=== PATIENT | female | born 1955 | race Caucasian/White ===

== ENCOUNTER 2017-09-01 17:05 | Emergency (ER) | payer OTHER ==
[~2017-09-01] VITALS: Ht 152.4 cm; Wt 86.6 kg
[2017-09-01 17:33] VITALS: BP 138/84
[2017-09-01 17:56] LABS: Basophils # (auto) 0.1 uL; Eosinophils # (auto) 0.1 uL; Hematocrit 42.6 % (36.0-46.0); Hemoglobin 14.1 g/dL (12.2-16.2); Lymphocytes # (auto) 1.3 uL; Lymphocytes % (auto) 25.9 % (10.0-50.0); Mean Corpuscular Hemoglobin 29.2 pg (28.0-32.0); Mean Corpuscular Hgb Conc. 33.2 g/dL (32.0-36.0); Mean Corpuscular Volume 87.9 fL (80.0-100.0); Monocytes # (auto) 0.5 uL; Monocytes % (auto) 9.4 % (0.0-12.0); Neutrophils # (auto) 3.1 uL; Neutrophils % (auto) 61.7 % (37.0-80.0); Nucleated Red Blood Cells % 0.1 %; Platelet Count (auto) 149 10^3/uL (140-450); Red Blood Cells 4.84 10^6/uL (4.0-5.20); Red Cell Distribution Width 14.6 % (11.8-14.3); White Blood Cell 5.1 10^3/uL (4.4-10.8)
[2017-09-01 18:12] LABS: Albumin 3.8 g/dL (3.4-5.0); BUN/Creatinine Ratio 28.7; Bilirubin, Total 0.5 mg/dL (0.2-1.0); Calcium 8.8 mg/dL (8.5-10.1); Potassium 3.6 mmol/L (3.5-5.1)
== END 2017-09-02 00:20 | disposition left against medical advice (07) ==
LOC: ER 17:05
DX: R10.9 Unspecified abdominal pain (principal); Z53.21 Procedure and treatment not carried out due to patient leaving prior to being seen by health care provider
CPT/HCPCS: 36415; 80053; 82150; 83690; 85025

== ENCOUNTER → 2020-07-09 | Outpatient (CLI) | payer OTHER ==
[2020-07-09 09:57] LABS: Basophils # (auto) 0 10 ^3/uL (0-0.2); Basophils % (auto) 0.4 % (0.0-2.0); Eosinophils # (auto) 0.1 10 ^3/uL (0-0.8); Eosinophils % (auto) 2.6 % (0.0-7.0); Hematocrit 40.7 % (36.0-46.0); Hemoglobin 13.6 g/dL (12.2-16.2); Lymphocytes % (auto) 25.9 % (10.0-50.0); Mean Corpuscular Hemoglobin 29.5 pg (28.0-32.0); Mean Corpuscular Hgb Conc. 33.5 g/dL (32.0-36.0); Mean Corpuscular Volume 88.1 fL (80.0-100.0); Monocytes # (auto) 0.3 10 ^3/uL (0-1.3); Monocytes % (auto) 8.5 % (0.0-12.0); Neutrophils # (auto) 2.5 10 ^3/uL (1.6-8.6); Neutrophils % (auto) 62.6 % (37.0-80.0); Nucleated Red Blood Cells % 0.1 %; Platelet Count (auto) 129 10^3/uL (140-450); Red Blood Cells 4.61 10^6/uL (4.0-5.20); Red Cell Distribution Width 14.1 % (11.8-14.3)
[2020-07-09 10:00] LABS: Urine Bacteria NONE SEEN /hpf (None Seen); Urine Blood TRACE /uL (Negative); Urine Specific Gravity 1.015 (1.001-1.035); Urine WBC 34 /hpf (0 - 5)
[2020-07-09 10:24] LABS: Albumin 3.6 g/dL (3.4-5.0); Calcium 9.2 mg/dL (8.5-10.1); Potassium 3.5 mmol/L (3.5-5.1)
[2020-07-09 10:29] LABS: BUN/Creatinine Ratio 28.8; Bilirubin, Total 0.5 mg/dL (0.2-1.0); Total Protein 7.9 g/dL (6.4-8.2)
== END | disposition home or self-care (01) ==
LOC: LAB 08:57
PROVIDERS: ATTEND Student in an Organized Health Care Education/Training Program
DX: I10 Essential (primary) hypertension (principal); E78.5 Hyperlipidemia, unspecified; R73.9 Hyperglycemia, unspecified; M25.50 Pain in unspecified joint
CPT/HCPCS: 36415; 80053; 80061; 81001; 83036; 84443; 85025

== ENCOUNTER 2020-08-26 00:24 | Emergency (ER) | payer OTHER ==
[~2020-08-26] VITALS: Ht 152.4 cm; Wt 77.1 kg
[2020-08-26 01:08] LABS: Basophils # (auto) 0 10 ^3/uL (0-0.2); Basophils % (auto) 0.6 % (0.0-2.0); Eosinophils # (auto) 0.1 10 ^3/uL (0-0.8); Hematocrit 38.2 % (36.0-46.0); Hemoglobin 12.5 g/dL (12.2-16.2); Lymphocytes # (auto) 1.1 10 ^3/uL (0.4-5.4); Lymphocytes % (auto) 23.6 % (10.0-50.0); Mean Corpuscular Hemoglobin 28.7 pg (28.0-32.0); Mean Corpuscular Hgb Conc. 32.7 g/dL (32.0-36.0); Monocytes # (auto) 0.5 10 ^3/uL (0-1.3); Monocytes % (auto) 10.3 % (0.0-12.0); Neutrophils # (auto) 2.9 10 ^3/uL (1.6-8.6); Neutrophils % (auto) 63.5 % (37.0-80.0); Nucleated Red Blood Cells % 0.1 %; Platelet Count (auto) 114 10^3/uL (140-450); Red Blood Cells 4.34 10^6/uL (4.0-5.20); Red Cell Distribution Width 14.2 % (11.8-14.3); White Blood Cell 4.5 10^3/uL (4.4-10.8)
[2020-08-26 01:27] LABS: Albumin 3.6 g/dL (3.4-5.0); BUN/Creatinine Ratio 33.3; Calcium 8.4 mg/dL (8.5-10.1); Potassium 3.6 mmol/L (3.5-5.1)
[2020-08-26 01:32] LABS: Bilirubin, Total 0.3 mg/dL (0.2-1.0); Total Protein 7.4 g/dL (6.4-8.2)
[2020-08-26 02:57] LABS: Urine Bacteria MANY /hpf (None Seen); Urine Blood TRACE /uL (Negative); Urine Mucus FEW (None Seen); Urine Specific Gravity 1.018 (1.001-1.035); Urine WBC 37 /hpf (0 - 5)
[2020-08-26 04:52] VITALS: BP 155/95
== END 2020-08-26 06:11 | disposition home or self-care (01) ==
LOC: ER 00:25
DX: R07.89 Other chest pain (principal); I10 Essential (primary) hypertension; E78.5 Hyperlipidemia, unspecified
CPT/HCPCS: 36415; 71045; 80053; 81001; 84484; 85025; 93005

== ENCOUNTER → 2020-10-13 | Outpatient (CLI) | payer OTHER ==
[~2020-10-13] MED LIST: ASPI-231 PO; CLOTCRE37 EX; LEFL20TA PO; LEVO125T7 PO; LISI20TA28 PO; OMEP20TA PO; SIMV-8 PO
[2020-10-13 11:30] LABS: Basophils # (auto) 0 10 ^3/uL (0-0.2); Basophils % (auto) 0.6 % (0.0-2.0); Eosinophils # (auto) 0.1 10 ^3/uL (0-0.8); Eosinophils % (auto) 2.6 % (0.0-7.0); Hematocrit 40.6 % (36.0-46.0); Hemoglobin 13.5 g/dL (12.2-16.2); Mean Corpuscular Hemoglobin 29.2 pg (28.0-32.0); Mean Corpuscular Hgb Conc. 33.3 g/dL (32.0-36.0); Mean Corpuscular Volume 87.4 fL (80.0-100.0); Monocytes # (auto) 0.3 10 ^3/uL (0-1.3); Monocytes % (auto) 8.7 % (0.0-12.0); Neutrophils # (auto) 2.3 10 ^3/uL (1.6-8.6); Neutrophils % (auto) 61.1 % (37.0-80.0); Nucleated Red Blood Cells % 0.1 %; Red Blood Cells 4.65 10^6/uL (4.0-5.20); Red Cell Distribution Width 14.4 % (11.8-14.3); White Blood Cell 3.8 10^3/uL (4.4-10.8)
[2020-10-13 12:40] LABS: Potassium 3.7 mmol/L (3.5-5.1)
[2020-10-13 12:51] LABS: Albumin 3.8 g/dL (3.4-5.0); BUN/Creatinine Ratio 26.5; Bilirubin, Total 0.4 mg/dL (0.2-1.0); CRP High Sensitivity 0.07 mg/dL (< 0.3); Calcium 9.2 mg/dL (8.5-10.1); Total Protein 8.3 g/dL (6.4-8.2)
== END | disposition home or self-care (01) ==
LOC: LAB 10:15
PROVIDERS: ATTEND Internal Medicine Rheumatology
DX: Z11.1 Encounter for screening for respiratory tuberculosis (principal); M05.79 Rheumatoid arthritis with rheumatoid factor of multiple sites without organ or systems involvement; R94.5 Abnormal results of liver function studies; M32.10 Systemic lupus erythematosus, organ or system involvement unspecified
CPT/HCPCS: 36415; 80053; 85025; 85652; 86038; 86141; 86200; 86431

== ENCOUNTER 2020-10-17 12:09 | Day surgery (SDC) | payer OTHER ==
[2020-10-14 13:53] LABS: Basophils # (auto) 0 10 ^3/uL (0-0.2); Basophils % (auto) 0.7 % (0.0-2.0); Eosinophils # (auto) 0.1 10 ^3/uL (0-0.8); Eosinophils % (auto) 1.7 % (0.0-7.0); Hemoglobin 13.2 g/dL (12.2-16.2); Lymphocytes # (auto) 1.1 10 ^3/uL (0.4-5.4); Lymphocytes % (auto) 24.6 % (10.0-50.0); Mean Corpuscular Hemoglobin 29.3 pg (28.0-32.0); Mean Corpuscular Hgb Conc. 33.9 g/dL (32.0-36.0); Mean Corpuscular Volume 86.5 fL (80.0-100.0); Monocytes # (auto) 0.5 10 ^3/uL (0-1.3); Monocytes % (auto) 11.6 % (0.0-12.0); Neutrophils # (auto) 2.8 10 ^3/uL (1.6-8.6); Neutrophils % (auto) 61.4 % (37.0-80.0); Red Blood Cells 4.51 10^6/uL (4.0-5.20); Red Cell Distribution Width 13.8 % (11.8-14.3); White Blood Cell 4.5 10^3/uL (4.4-10.8)
[2020-10-14 14:18] LABS: Urine Bacteria FEW /hpf (None Seen); Urine Blood Negative /uL (Negative); Urine Mucus FEW (None Seen); Urine Specific Gravity 1.018 (1.001-1.035); Urine WBC 7 /hpf (0 - 5)
[2020-10-14 14:53] LABS: Potassium 4.1 mmol/L (3.5-5.1)
[2020-10-14 14:58] LABS: Albumin 3.9 g/dL (3.4-5.0); BUN/Creatinine Ratio 30.2; Calcium 9.1 mg/dL (8.5-10.1)
[2020-10-14 15:01] LABS: Bilirubin, Total 0.4 mg/dL (0.2-1.0); Total Protein 7.9 g/dL (6.4-8.2)
[~2020-10-17] VITALS: Ht 152.4 cm; Wt 77.1 kg
[2020-10-17] MEDS ORDERED: diphenhdrAMINE HCL 50 MG/1 ML VL ONE (12:43)
[2020-10-17] MEDS ORDERED: SODIUM CHLORIDE LOCK 10 ML ONE (12:47)
[2020-10-17] MEDS: fentaNYL CITRATE 100 MCG/2 ML VL ONE ×2 (13:09→13:14)
[2020-10-17] MEDS: MIDAZOLAM HCL 5 MG/ML-1ML VIAL ONE ×2 (13:09→13:14)
[2020-10-17 13:55] VITALS: BP 113/67
== END 2020-10-17 14:05 | disposition home or self-care (01) ==
LOC: GI 12:09
PROVIDERS: ATTEND Internal Medicine Gastroenterology
DX: Z12.11 Encounter for screening for malignant neoplasm of colon (principal); K57.30 Diverticulosis of large intestine without perforation or abscess without bleeding; K63.89 Other specified diseases of intestine; K64.8 Other hemorrhoids; K21.9 Gastro-esophageal reflux disease without esophagitis; M19.90 Unspecified osteoarthritis, unspecified site; I10 Essential (primary) hypertension; Z20.822 Contact with and (suspected) exposure to COVID-19; Z79.82 Long term (current) use of aspirin; Z79.899 Other long term (current) drug therapy; Z88.0 Allergy status to penicillin; Z80.0 Family history of malignant neoplasm of digestive organs
CPT/HCPCS: 36415; 45380; 80053; 81001; 85025; 88305; J1200; J2250; J3010; J7030; U0003; 99152

== ENCOUNTER → 2020-10-29 | Outpatient (CLI) | payer OTHER | END | disposition home or self-care (01) | LOC: LAB 10:04 | PROVIDERS: ATTEND Student in an Organized Health Care Education/Training Program | DX: E03.9 Hypothyroidism, unspecified (principal) | CPT/HCPCS: 36415; 84439; 84443 ==

== ENCOUNTER → 2021-04-08 | Outpatient (CLI) | payer OTHER ==
[~2021-04-08] MED LIST changes: -ASPI-231 PO; +ASPI1TAB20 PO
[2021-04-08 12:58] LABS: Basophils # (auto) 0 10 ^3/uL (0-0.2); Basophils % (auto) 0.4 % (0.0-2.0); Eosinophils # (auto) 0.1 10 ^3/uL (0-0.8); Eosinophils % (auto) 2.2 % (0.0-7.0); Hematocrit 39.8 % (36.0-46.0); Hemoglobin 13.2 g/dL (12.2-16.2); Mean Corpuscular Hemoglobin 28.8 pg (28.0-32.0); Mean Corpuscular Hgb Conc. 33.1 g/dL (32.0-36.0); Monocytes # (auto) 0.5 10 ^3/uL (0-1.3); Monocytes % (auto) 12.9 % (0.0-12.0); Neutrophils % (auto) 55.5 % (37.0-80.0); Red Blood Cells 4.57 10^6/uL (4.0-5.20); Red Cell Distribution Width 14.3 % (11.8-14.3); White Blood Cell 3.6 10^3/uL (4.4-10.8)
[2021-04-08 13:07] LABS: Urine Bacteria FEW /hpf (None Seen); Urine Blood TRACE /uL (Negative); Urine Mucus FEW (None Seen); Urine Specific Gravity 1.021 (1.001-1.035); Urine WBC 13 /hpf (0 - 5)
[2021-04-08 14:44] LABS: Potassium 3.6 mmol/L (3.5-5.1)
[2021-04-08 16:13] LABS: Albumin 3.5 g/dL (3.4-5.0); BUN/Creatinine Ratio 30.4; Bilirubin, Total 0.5 mg/dL (0.2-1.0); Calcium 9.1 mg/dL (8.5-10.1); Total Protein 7.6 g/dL (6.4-8.2)
== END | disposition home or self-care (01) ==
LOC: LAB 09:35
PROVIDERS: ATTEND Student in an Organized Health Care Education/Training Program
DX: E78.5 Hyperlipidemia, unspecified (principal); I10 Essential (primary) hypertension; E03.9 Hypothyroidism, unspecified
CPT/HCPCS: 36415; 80053; 80061; 81001; 84443; 85025

== ENCOUNTER → 2021-07-20 | Outpatient (CLI) | payer OTHER ==
[2021-07-20 09:35] LABS: Albumin 3.2 g/dL (3.4-5.0); Calcium 8.7 mg/dL (8.5-10.1); Potassium 3.2 mmol/L (3.5-5.1); Uric Acid 6.8 mg/dL (2.6-6.0)
[2021-07-20 09:38] LABS: BUN/Creatinine Ratio 18.6; Bilirubin, Total 0.4 mg/dL (0.2-1.0); Total Protein 7.1 g/dL (6.4-8.2)
== END | disposition home or self-care (01) ==
LOC: LAB 08:35
PROVIDERS: ATTEND Podiatrist
DX: M10.9 Gout, unspecified (principal)
CPT/HCPCS: 36415; 80053; 84550

== ENCOUNTER → 2021-08-10 | Outpatient (CLI) | payer OTHER ==
[2021-08-10 09:24] LABS: Urine Bacteria NONE SEEN /hpf (None Seen); Urine Blood Negative /uL (Negative); Urine Specific Gravity 1.012 (1.001-1.035); Urine WBC 28 /hpf (0 - 5)
[2021-08-10 09:28] LABS: Basophils # (auto) 0 10 ^3/uL (0-0.2); Eosinophils # (auto) 0.1 10 ^3/uL (0-0.8); Eosinophils % (auto) 2.5 % (0.0-7.0); Hematocrit 40.5 % (36.0-46.0); Hemoglobin 13.4 g/dL (12.2-16.2); Lymphocytes # (auto) 1.1 10 ^3/uL (0.4-5.4); Lymphocytes % (auto) 21.5 % (10.0-50.0); Mean Corpuscular Volume 87.8 fL (80.0-100.0); Monocytes # (auto) 0.5 10 ^3/uL (0-1.3); Monocytes % (auto) 10.6 % (0.0-12.0); Neutrophils # (auto) 3.1 10 ^3/uL (1.6-8.6); Neutrophils % (auto) 64.4 % (37.0-80.0); Red Blood Cells 4.61 10^6/uL (4.0-5.20); Red Cell Distribution Width 14.1 % (11.8-14.3); White Blood Cell 4.9 10^3/uL (4.4-10.8)
[2021-08-10 09:40] LABS: Calcium 8.9 mg/dL (8.5-10.1); Potassium 3.6 mmol/L (3.5-5.1)
[2021-08-10 09:43] LABS: BUN/Creatinine Ratio 19.5
== END | disposition home or self-care (01) ==
LOC: LAB 08:54
PROVIDERS: ATTEND Student in an Organized Health Care Education/Training Program
DX: N39.0 Urinary tract infection, site not specified (principal); E03.8 Other specified hypothyroidism
CPT/HCPCS: 36415; 80048; 81001; 84439; 84443; 85025; 87086

== ENCOUNTER → 2021-08-18 | Outpatient (CLI) | payer OTHER | END | disposition home or self-care (01) | LOC: LAB 12:05 | PROVIDERS: ATTEND Podiatrist | DX: M10.9 Gout, unspecified (principal) | CPT/HCPCS: 36415; 84550 ==

== ENCOUNTER → 2021-09-02 | Outpatient (CLI) | payer OTHER ==
[2021-09-02 08:05] LABS: Basophils # (auto) 0 10 ^3/uL (0-0.2); Basophils % (auto) 0.9 % (0.0-2.0); Eosinophils # (auto) 0.1 10 ^3/uL (0-0.8); Eosinophils % (auto) 2.2 % (0.0-7.0); Hematocrit 39.1 % (36.0-46.0); Hemoglobin 13.1 g/dL (12.2-16.2); Lymphocytes % (auto) 21.3 % (10.0-50.0); Mean Corpuscular Hemoglobin 29.2 pg (28.0-32.0); Mean Corpuscular Hgb Conc. 33.4 g/dL (32.0-36.0); Mean Corpuscular Volume 87.4 fL (80.0-100.0); Monocytes # (auto) 0.5 10 ^3/uL (0-1.3); Monocytes % (auto) 10.8 % (0.0-12.0); Neutrophils # (auto) 2.9 10 ^3/uL (1.6-8.6); Neutrophils % (auto) 64.8 % (37.0-80.0); Nucleated Red Blood Cells % 0.1 %; Red Blood Cells 4.47 10^6/uL (4.0-5.20); Red Cell Distribution Width 14.1 % (11.8-14.3); White Blood Cell 4.5 10^3/uL (4.4-10.8)
[2021-09-02 08:29] LABS: Albumin 3.2 g/dL (3.4-5.0); Calcium 8.6 mg/dL (8.5-10.1); Potassium 3.3 mmol/L (3.5-5.1)
[2021-09-02 08:37] LABS: BUN/Creatinine Ratio 25.3; Bilirubin, Total 0.6 mg/dL (0.2-1.0); CRP High Sensitivity 1.23 mg/dL (< 0.3); Total Protein 7.6 g/dL (6.4-8.2)
== END | disposition home or self-care (01) ==
LOC: LAB 07:52
PROVIDERS: ATTEND Internal Medicine Rheumatology
DX: M06.09 Rheumatoid arthritis without rheumatoid factor, multiple sites (principal)
CPT/HCPCS: 36415; 80053; 85025; 85652; 86141

== ENCOUNTER → 2021-11-12 | Outpatient (CLI) | payer OTHER ==
[2021-11-12 09:31] LABS: Basophils # (auto) 0 10 ^3/uL (0-0.2); Basophils % (auto) 0.5 % (0.0-2.0); Eosinophils # (auto) 0.1 10 ^3/uL (0-0.8); Eosinophils % (auto) 3.2 % (0.0-7.0); Hematocrit 39.2 % (36.0-46.0); Hemoglobin 12.6 g/dL (12.2-16.2); Lymphocytes # (auto) 0.9 10 ^3/uL (0.4-5.4); Lymphocytes % (auto) 32.7 % (10.0-50.0); Mean Corpuscular Hemoglobin 28.7 pg (28.0-32.0); Mean Corpuscular Volume 89.4 fL (80.0-100.0); Monocytes # (auto) 0.3 10 ^3/uL (0-1.3); Monocytes % (auto) 12.8 % (0.0-12.0); Neutrophils # (auto) 1.4 10 ^3/uL (1.6-8.6); Neutrophils % (auto) 50.8 % (37.0-80.0); Nucleated Red Blood Cells % 0.1 %; Red Blood Cells 4.38 10^6/uL (4.0-5.20); Red Cell Distribution Width 16.1 % (11.8-14.3); White Blood Cell 2.7 10^3/uL (4.4-10.8)
[2021-11-12 09:43] LABS: Urine Bacteria NONE SEEN /hpf (None Seen); Urine Blood Negative /uL (Negative); Urine Specific Gravity 1.013 (1.001-1.035); Urine WBC 4 /hpf (0 - 5)
[2021-11-12 15:04] LABS: Potassium 3.6 mmol/L (3.5-5.1)
[2021-11-12 15:13] LABS: Albumin 3.3 g/dL (3.4-5.0); BUN/Creatinine Ratio 26.1; Bilirubin, Total 0.8 mg/dL (0.2-1.0)
== END | disposition home or self-care (01) ==
LOC: LAB 09:06
PROVIDERS: ATTEND Student in an Organized Health Care Education/Training Program
DX: M25.50 Pain in unspecified joint (principal)
CPT/HCPCS: 36415; 80053; 80061; 81001; 85025

== ENCOUNTER → 2022-01-11 | Outpatient (CLI) | payer OTHER ==
[2022-01-11 10:40] LABS: Basophils # (auto) 0 10 ^3/uL (0-0.2); Basophils % (auto) 0.6 % (0.0-2.0); Eosinophils # (auto) 0.1 10 ^3/uL (0-0.8); Eosinophils % (auto) 1.9 % (0.0-7.0); Hematocrit 39.3 % (36.0-46.0); Lymphocytes # (auto) 1.1 10 ^3/uL (0.4-5.4); Lymphocytes % (auto) 23.6 % (10.0-50.0); Mean Corpuscular Hemoglobin 29.4 pg (28.0-32.0); Mean Corpuscular Hgb Conc. 33.1 g/dL (32.0-36.0); Mean Corpuscular Volume 88.8 fL (80.0-100.0); Monocytes # (auto) 0.5 10 ^3/uL (0-1.3); Monocytes % (auto) 10.1 % (0.0-12.0); Neutrophils % (auto) 63.8 % (37.0-80.0); Nucleated Red Blood Cells % 0.1 %; Red Blood Cells 4.43 10^6/uL (4.0-5.20); Red Cell Distribution Width 14.8 % (11.8-14.3); White Blood Cell 4.6 10^3/uL (4.4-10.8)
[2022-01-11 11:00] LABS: Potassium 4.1 mmol/L (3.5-5.1)
[2022-01-11 11:05] LABS: Albumin 3.3 g/dL (3.4-5.0); Bilirubin, Total 0.7 mg/dL (0.2-1.0); CRP High Sensitivity 0.69 mg/dL (< 0.3); Total Protein 7.1 g/dL (6.4-8.2)
[2022-01-11 12:47] LABS: Hepatitis B Surface Antibody Negative (Negative)
[2022-01-11 13:17] LABS: Hepatitis A Total Antibody Positive (Negative)
[2022-01-11 13:51] LABS: Hepatitis C Antibody Negative (Negative)
== END | disposition home or self-care (01) ==
LOC: LAB 09:54
PROVIDERS: ATTEND Internal Medicine Rheumatology
DX: Z11.1 Encounter for screening for respiratory tuberculosis (principal); M06.9 Rheumatoid arthritis, unspecified; R94.5 Abnormal results of liver function studies
CPT/HCPCS: 36415; 80053; 85025; 85652; 86141; 86235; 86704; 86706; 86708; 86803; 87340; 87517

== ENCOUNTER → 2022-02-15 | Outpatient (CLI) | payer OTHER ==
[2022-02-15 09:21] LABS: Basophils # (auto) 0 10 ^3/uL (0-0.2); Basophils % (auto) 0.4 % (0.0-2.0); Eosinophils # (auto) 0.1 10 ^3/uL (0-0.8); Eosinophils % (auto) 1.9 % (0.0-7.0); Hematocrit 39.8 % (36.0-46.0); Hemoglobin 12.8 g/dL (12.2-16.2); Lymphocytes # (auto) 0.9 10 ^3/uL (0.4-5.4); Lymphocytes % (auto) 23.2 % (10.0-50.0); Mean Corpuscular Hemoglobin 28.8 pg (28.0-32.0); Mean Corpuscular Hgb Conc. 32.1 g/dL (32.0-36.0); Mean Corpuscular Volume 89.7 fL (80.0-100.0); Monocytes # (auto) 0.5 10 ^3/uL (0-1.3); Monocytes % (auto) 12.5 % (0.0-12.0); Neutrophils # (auto) 2.4 10 ^3/uL (1.6-8.6); Nucleated Red Blood Cells % 0.1 %; Red Blood Cells 4.44 10^6/uL (4.0-5.20); Red Cell Distribution Width 14.6 % (11.8-14.3); White Blood Cell 3.9 10^3/uL (4.4-10.8)
[2022-02-15 13:03] LABS: Potassium 3.6 mmol/L (3.5-5.1)
[2022-02-15 13:13] LABS: Albumin 3.3 g/dL (3.4-5.0); BUN/Creatinine Ratio 23.7; Bilirubin, Total 0.7 mg/dL (0.2-1.0); Calcium 9.2 mg/dL (8.5-10.1); Total Protein 7.3 g/dL (6.4-8.2)
== END | disposition home or self-care (01) ==
LOC: LAB 09:03
PROVIDERS: ATTEND Student in an Organized Health Care Education/Training Program
DX: I10 Essential (primary) hypertension (principal); E03.8 Other specified hypothyroidism; E78.5 Hyperlipidemia, unspecified; R73.9 Hyperglycemia, unspecified
CPT/HCPCS: 36415; 80053; 80061; 83036; 84439; 84443; 85025

== ENCOUNTER → 2022-03-04 | Outpatient (CLI) | payer OTHER ==
[2022-03-04 10:04] LABS: Basophils # (auto) 0 10 ^3/uL (0-0.2); Basophils % (auto) 0.4 % (0.0-2.0); Eosinophils # (auto) 0.1 10 ^3/uL (0-0.8); Eosinophils % (auto) 1.4 % (0.0-7.0); Hematocrit 40.5 % (36.0-46.0); Hemoglobin 13.2 g/dL (12.2-16.2); Lymphocytes # (auto) 0.9 10 ^3/uL (0.4-5.4); Lymphocytes % (auto) 18.6 % (10.0-50.0); Mean Corpuscular Hemoglobin 28.8 pg (28.0-32.0); Mean Corpuscular Hgb Conc. 32.6 g/dL (32.0-36.0); Mean Corpuscular Volume 88.4 fL (80.0-100.0); Monocytes # (auto) 0.5 10 ^3/uL (0-1.3); Monocytes % (auto) 9.3 % (0.0-12.0); Neutrophils # (auto) 3.4 10 ^3/uL (1.6-8.6); Neutrophils % (auto) 70.3 % (37.0-80.0); Nucleated Red Blood Cells % 0.2 %; Red Blood Cells 4.58 10^6/uL (4.0-5.20); Red Cell Distribution Width 14.3 % (11.8-14.3); White Blood Cell 4.9 10^3/uL (4.4-10.8)
[2022-03-04 10:14] LABS: Albumin 3.5 g/dL (3.4-5.0); Calcium 9.1 mg/dL (8.5-10.1); Potassium 3.5 mmol/L (3.5-5.1)
[2022-03-04 10:19] LABS: BUN/Creatinine Ratio 30.7; Bilirubin, Direct 0.2 mg/dL (0-0.2); Bilirubin, Total 0.8 mg/dL (0.2-1.0); Total Protein 7.8 g/dL (6.4-8.2)
== END | disposition home or self-care (01) ==
LOC: LAB 09:21
PROVIDERS: ATTEND Student in an Organized Health Care Education/Training Program
DX: D69.6 Thrombocytopenia, unspecified (principal); R74.8 Abnormal levels of other serum enzymes; J30.9 Allergic rhinitis, unspecified
CPT/HCPCS: 36415; 80053; 80076; 82785; 85025

== ENCOUNTER → 2022-05-18 | Outpatient (CLI) | payer OTHER ==
[2022-05-18 10:27] LABS: Basophils # (auto) 0 10 ^3/uL (0-0.2); Basophils % (auto) 0.9 % (0.0-2.0); Eosinophils # (auto) 0.1 10 ^3/uL (0-0.8); Eosinophils % (auto) 1.4 % (0.0-7.0); Hematocrit 42.3 % (36.0-46.0); Hemoglobin 14.1 g/dL (12.2-16.2); Lymphocytes # (auto) 0.9 10 ^3/uL (0.4-5.4); Lymphocytes % (auto) 23.5 % (10.0-50.0); Mean Corpuscular Hemoglobin 29.9 pg (28.0-32.0); Mean Corpuscular Hgb Conc. 33.4 g/dL (32.0-36.0); Mean Corpuscular Volume 89.5 fL (80.0-100.0); Monocytes # (auto) 0.4 10 ^3/uL (0-1.3); Monocytes % (auto) 9.4 % (0.0-12.0); Neutrophils # (auto) 2.4 10 ^3/uL (1.6-8.6); Neutrophils % (auto) 64.8 % (37.0-80.0); Nucleated Red Blood Cells % 0.1 %; Red Blood Cells 4.73 10^6/uL (4.0-5.20); Red Cell Distribution Width 15.1 % (11.8-14.3); White Blood Cell 3.7 10^3/uL (4.4-10.8)
[2022-05-18 11:26] LABS: Potassium 3.4 mmol/L (3.5-5.1)
[2022-05-18 11:35] LABS: Albumin 3.5 g/dL (3.4-5.0); BUN/Creatinine Ratio 29.8; Bilirubin, Total 1.3 mg/dL (0.2-1.0); CRP High Sensitivity 0.84 mg/dL (< 0.3); Calcium 9.1 mg/dL (8.5-10.1); Total Protein 8.8 g/dL (6.4-8.2)
== END | disposition home or self-care (01) ==
LOC: LAB 10:02
PROVIDERS: ATTEND Internal Medicine Rheumatology
DX: R94.5 Abnormal results of liver function studies (principal); R70.0 Elevated erythrocyte sedimentation rate; M06.09 Rheumatoid arthritis without rheumatoid factor, multiple sites; Z79.899 Other long term (current) drug therapy
CPT/HCPCS: 36415; 80053; 84155; 84165; 85025; 85652; 86141

== ENCOUNTER 2022-06-19 09:53 | Emergency (ER) | payer OTHER ==
[~2022-06-19] VITALS: Ht 157.5 cm; Wt 64.8 kg
[2022-06-19] MEDS ORDERED: KETOROLAC TROMETH 60MG/2ML VIAL IM ONE (11:00)
[2022-06-19 11:01] VITALS: BP 125/75
[2022-06-19] MEDS ORDERED: MELO7.5T9 PO (11:31)
[2022-06-19] MEDS ORDERED: BENZ100C19 PO (11:31)
== END 2022-06-19 11:33 | disposition home or self-care (01) ==
LOC: ER 09:53
DX: M17.11 Unilateral primary osteoarthritis, right knee (principal); M77.9 Enthesopathy, unspecified; R05.9 Cough, unspecified; M54.89 Other dorsalgia; Z88.0 Allergy status to penicillin; Z79.899 Other long term (current) drug therapy; Z79.82 Long term (current) use of aspirin
CPT/HCPCS: 71046; 73100; 73560; 96372; 99284; J1885

== ENCOUNTER → 2022-06-22 | Outpatient (CLI) | payer OTHER ==
[~2022-06-22] MED LIST changes: +BENZ100C19 PO; +MELO7.5T9 PO
[2022-06-22 10:27] LABS: Basophils # (auto) 0 10 ^3/uL (0-0.2); Basophils % (auto) 0.8 % (0.0-2.0); Eosinophils # (auto) 0 10 ^3/uL (0-0.8); Eosinophils % (auto) 0.7 % (0.0-7.0); Hematocrit 38.6 % (36.0-46.0); Hemoglobin 13.1 g/dL (12.2-16.2); Lymphocytes # (auto) 0.8 10 ^3/uL (0.4-5.4); Lymphocytes % (auto) 19.8 % (10.0-50.0); Mean Corpuscular Hemoglobin 31.2 pg (28.0-32.0); Mean Corpuscular Volume 91.8 fL (80.0-100.0); Monocytes # (auto) 0.5 10 ^3/uL (0-1.3); Neutrophils # (auto) 2.7 10 ^3/uL (1.6-8.6); Neutrophils % (auto) 66.7 % (37.0-80.0); Nucleated Red Blood Cells % 0.2 %; Red Blood Cells 4.21 10^6/uL (4.0-5.20); Red Cell Distribution Width 15.8 % (11.8-14.3); White Blood Cell 4.1 10^3/uL (4.4-10.8)
[2022-06-22 10:52] LABS: Albumin 2.8 g/dL (3.4-5.0); Potassium 3.6 mmol/L (3.5-5.1)
[2022-06-22 11:05] LABS: BUN/Creatinine Ratio 13.6 (10.0-20.0); Bilirubin, Total 2.6 mg/dL (0.2-1.0); CRP High Sensitivity 3.04 mg/dL (< 0.3); Calcium 8.4 mg/dL (8.5-10.1); Total Protein 8.8 g/dL (6.4-8.2)
== END | disposition home or self-care (01) ==
LOC: LAB 09:46
PROVIDERS: ATTEND Internal Medicine Rheumatology
DX: R94.5 Abnormal results of liver function studies (principal); M06.9 Rheumatoid arthritis, unspecified
CPT/HCPCS: 36415; 80053; 85025; 85652; 86141

== ENCOUNTER 2022-06-25 17:10 | Inpatient (IN) | payer OTHER ==
[~2022-06-25] VITALS: Ht 152.4 cm; Wt 76.8 kg
[2022-06-25] MEDS ORDERED: KETOROLAC TROMETH 30 MG/ML 1ML VIAL IV ONE (18:00)
[2022-06-25] MEDS ORDERED: SODIUM CHLORIDE 0.9% 1,000 ML IV ONE (18:00)
[2022-06-25 18:29] LABS: Basophils # (auto) 0 10 ^3/uL (0-0.2); Basophils % (auto) 0.6 % (0.0-2.0); Eosinophils # (auto) 0.1 10 ^3/uL (0-0.8); Eosinophils % (auto) 1.1 % (0.0-7.0); Hemoglobin 12.2 g/dL (12.2-16.2); Mean Corpuscular Hemoglobin 30.9 pg (28.0-32.0); Mean Corpuscular Hgb Conc. 32.1 g/dL (32.0-36.0); Mean Corpuscular Volume 96.3 fL (80.0-100.0); Monocytes # (auto) 0.5 10 ^3/uL (0-1.3); Monocytes % (auto) 11.8 % (0.0-12.0); Neutrophils % (auto) 65.5 % (37.0-80.0); Nucleated Red Blood Cells % 0.1 %; Red Blood Cells 3.95 10^6/uL (4.0-5.20); Red Cell Distribution Width 16.8 % (11.8-14.3); White Blood Cell 4.6 10^3/uL (4.4-10.8)
[2022-06-25 18:44] LABS: Potassium 3.4 mmol/L (3.5-5.1)
[2022-06-25 18:50] LABS: Albumin 2.5 g/dL (3.4-5.0); BUN/Creatinine Ratio 14.7 (10.0-20.0); Bilirubin, Total 1.4 mg/dL (0.2-1.0); Magnesium 1.9 mg/dL (1.6-2.6); Total Protein 7.6 g/dL (6.4-8.2)
[2022-06-25] MEDS: PIPERACILLIN-TAZOB 3.375GM 100 ML IV ONE ×2 (20:26→20:36)
[2022-06-25] MEDS ORDERED: levoFLOXacin 500MG 100 ML IV ONE (20:45)
[2022-06-25] MEDS ORDERED: metroNIDAZOLE 500MG/100ML 100 ML IV ONE (20:45)
[2022-06-25] MEDS ORDERED: HYDROcodone-ACET 5/325MG TAB PO PRN (21:45)
[2022-06-25] MEDS ORDERED: DOCUSATE SOD 100 MG CAP PO PRN (21:45)
[2022-06-25] MEDS ORDERED: IBUPROFEN 400 MG TAB PO PRN (21:45)
[2022-06-25] MEDS ORDERED: ALBUMIN 25% 100 ML IV ONE (21:45)
[2022-06-25] MEDS ORDERED: ONDANSETRON HCL 4 MG/2 ML VIAL IV PRN (21:45)
[2022-06-25] MEDS ORDERED: POTASSIUM CHL 20 Meq TABLET PO ONE (22:00)
[2022-06-25] MEDS ORDERED: NITROGLYCERIN 0.4 MG SL TAB SL PRN (22:30)
[2022-06-25] MEDS ORDERED: MORPHINE SULFATE INJ 2 MG/ml SYRG IV PRN (22:30)
[2022-06-25] MEDS: FAMOTIDINE (10MG/ML) 2ML VL IV SCH (23:08)
[2022-06-26] MEDS: D5W/SOD CHLO 0.9% 1,000 ML IV SCH ×2 (01:24→11:05)
[2022-06-26 04:13] LABS: Urine Bacteria FEW /hpf (None Seen); Urine Blood Negative /uL (Negative); Urine Specific Gravity 1.008 (1.001-1.035); Urine WBC 6 /hpf (0 - 5)
[2022-06-26 07:03] LABS: Basophils # (auto) 0 10 ^3/uL (0-0.2); Basophils % (auto) 0.7 % (0.0-2.0); Eosinophils # (auto) 0 10 ^3/uL (0-0.8); Eosinophils % (auto) 0.9 % (0.0-7.0); Hematocrit 34.7 % (36.0-46.0); Hemoglobin 12.1 g/dL (12.2-16.2); Lymphocytes # (auto) 0.5 10 ^3/uL (0.4-5.4); Lymphocytes % (auto) 13.2 % (10.0-50.0); Mean Corpuscular Hemoglobin 31.4 pg (28.0-32.0); Mean Corpuscular Hgb Conc. 34.9 g/dL (32.0-36.0); Monocytes # (auto) 0.3 10 ^3/uL (0-1.3); Monocytes % (auto) 9.3 % (0.0-12.0); Neutrophils # (auto) 2.8 10 ^3/uL (1.6-8.6); Neutrophils % (auto) 75.9 % (37.0-80.0); Nucleated Red Blood Cells % 0.1 %; Red Blood Cells 3.86 10^6/uL (4.0-5.20); Red Cell Distribution Width 15.5 % (11.8-14.3); White Blood Cell 3.7 10^3/uL (4.4-10.8)
[2022-06-26 07:20] LABS: Potassium 3.8 mmol/L (3.5-5.1)
[2022-06-26 07:26] LABS: Albumin 2.6 g/dL (3.4-5.0); BUN/Creatinine Ratio 14.9 (10.0-20.0); Calcium 7.9 mg/dL (8.5-10.1); Total Protein 7.6 g/dL (6.4-8.2)
[2022-06-26 08:38] VITALS: BP 105/64
[2022-06-26 08:52] VITALS: BP 140/79
[2022-06-26] MEDS ORDERED: LISI-283 PO (09:09)
[2022-06-26] MEDS ORDERED: KETO2CRE4 EX (09:09)
[2022-06-26] MEDS ORDERED: LEVO112T4 PO (09:09)
[2022-06-26] MEDS ORDERED: OMEP-263 PO (09:09)
[2022-06-26] MEDS ORDERED: BENZ100C97 PO (09:09)
[2022-06-26] MEDS ORDERED: CETI1TAB36 PO (09:12)
[2022-06-26] MEDS: metroNIDAZOLE 500MG/100ML 100 ML IV SCH ×3 (09:19→23:21)
[2022-06-26] MEDS: FAMOTIDINE (10MG/ML) 2ML VL IV SCH ×2 (09:19→23:21)
[2022-06-26] MEDS ORDERED: levoFLOXacin 250MG 50 ML IV SCH (10:00)
[2022-06-26] MEDS: levoFLOXacin 500MG 100 ML IV SCH (11:17)
[2022-06-26] MEDS: LEVOTHYROXINE SODIUM 50 MCG TAB PO SCH (13:15)
[2022-06-26 13:25] VITALS: BP 100/61
[2022-06-26 17:19] VITALS: BP 115/62
[2022-06-26 22:00] VITALS: BP 113/62
[2022-06-27 05:00] VITALS: BP 106/65
[2022-06-27] MEDS: D5W/SOD CHLO 0.9% 1,000 ML IV SCH ×2 (05:50→13:51)
[2022-06-27 05:51] LABS: Basophils # (auto) 0 10 ^3/uL (0-0.2); Basophils % (auto) 0.3 % (0.0-2.0); Eosinophils # (auto) 0 10 ^3/uL (0-0.8); Eosinophils % (auto) 1.2 % (0.0-7.0); Hematocrit 32.6 % (36.0-46.0); Hemoglobin 10.9 g/dL (12.2-16.2); Lymphocytes # (auto) 0.5 10 ^3/uL (0.4-5.4); Lymphocytes % (auto) 14.5 % (10.0-50.0); Mean Corpuscular Hemoglobin 31.4 pg (28.0-32.0); Mean Corpuscular Hgb Conc. 33.4 g/dL (32.0-36.0); Monocytes # (auto) 0.5 10 ^3/uL (0-1.3); Monocytes % (auto) 13.4 % (0.0-12.0); Neutrophils # (auto) 2.5 10 ^3/uL (1.6-8.6); Neutrophils % (auto) 70.6 % (37.0-80.0); Nucleated Red Blood Cells % 0.2 %; Red Blood Cells 3.47 10^6/uL (4.0-5.20); Red Cell Distribution Width 15.8 % (11.8-14.3); White Blood Cell 3.6 10^3/uL (4.4-10.8)
[2022-06-27] MEDS: metroNIDAZOLE 500MG/100ML 100 ML IV SCH ×4 (06:00→21:48)
[2022-06-27] MEDS: LEVOTHYROXINE SODIUM 50 MCG TAB PO SCH (06:00)
[2022-06-27] MEDS: MORPHINE SULFATE INJ 2 MG/ml SYRG IV PRN (06:13)
[2022-06-27 06:16] LABS: Albumin 2.2 g/dL (3.4-5.0); Calcium 7.8 mg/dL (8.5-10.1); Potassium 3.7 mmol/L (3.5-5.1)
[2022-06-27 06:20] LABS: BUN/Creatinine Ratio 13.6 (10.0-20.0); Bilirubin, Total 1.9 mg/dL (0.2-1.0); Total Protein 6.5 g/dL (6.4-8.2)
[2022-06-27 08:25] VITALS: BP 102/61
[2022-06-27 09:00] VITALS: BP 102/61
[2022-06-27] MEDS: FAMOTIDINE (10MG/ML) 2ML VL IV SCH ×2 (10:07→21:49)
[2022-06-27] MEDS: levoFLOXacin 500MG 100 ML IV SCH (10:07)
[2022-06-27 13:00] VITALS: BP 99/60
[2022-06-27] MEDS: traMADol HCL 50 MG TAB PO PRN (14:02)
[2022-06-27 17:00] VITALS: BP 114/67
[2022-06-27 22:00] VITALS: BP 117/65
[2022-06-28] MEDS: D5W/SOD CHLO 0.9% 1,000 ML IV SCH (00:17)
[2022-06-28 05:00] VITALS: BP 111/63
[2022-06-28] MEDS: metroNIDAZOLE 500MG/100ML 100 ML IV SCH ×3 (05:11→21:23)
[2022-06-28] MEDS: LEVOTHYROXINE SODIUM 50 MCG TAB PO SCH (06:00)
[2022-06-28 07:30] LABS: INR 1.42 (0.9-1.15); Partial Thromboplastin Time 33.4 sec (24.6-33.4)
[2022-06-28 07:39] LABS: Albumin 2.1 g/dL (3.4-5.0); BUN/Creatinine Ratio 13.4 (10.0-20.0); Calcium 7.7 mg/dL (8.5-10.1); Potassium 3.6 mmol/L (3.5-5.1)
[2022-06-28 07:42] LABS: Bilirubin, Total 1.4 mg/dL (0.2-1.0); Total Protein 6.2 g/dL (6.4-8.2)
[2022-06-28 09:00] VITALS: BP 111/64
[2022-06-28] MEDS: cefTRIAXone 1GM/50ML D5W 50 ML IV SCH (09:31)
[2022-06-28] MEDS: FAMOTIDINE (10MG/ML) 2ML VL IV SCH ×2 (09:31→21:23)
[2022-06-28 13:00] VITALS: BP 106/62
[2022-06-28 17:00] VITALS: BP 121/67
[2022-06-28] MEDS: MORPHINE SULFATE INJ 2 MG/ml SYRG IV PRN (17:50)
[2022-06-28 22:00] VITALS: BP 114/69
[2022-06-28] MEDS: traMADol HCL 50 MG TAB PO PRN (23:28)
[2022-06-29 05:00] VITALS: BP 112/68
[2022-06-29] MEDS: metroNIDAZOLE 500MG/100ML 100 ML IV SCH ×2 (06:02→13:17)
[2022-06-29] MEDS: LEVOTHYROXINE SODIUM 50 MCG TAB PO SCH (06:02)
[2022-06-29] MEDS: traMADol HCL 50 MG TAB PO PRN (06:28)
[2022-06-29 06:37] LABS: Basophils # (auto) 0 10 ^3/uL (0-0.2); Basophils % (auto) 0.4 % (0.0-2.0); Eosinophils # (auto) 0.1 10 ^3/uL (0-0.8); Eosinophils % (auto) 1.8 % (0.0-7.0); Hematocrit 33.5 % (36.0-46.0); Hemoglobin 11.3 g/dL (12.2-16.2); Lymphocytes # (auto) 0.7 10 ^3/uL (0.4-5.4); Lymphocytes % (auto) 19.2 % (10.0-50.0); Mean Corpuscular Hemoglobin 31.3 pg (28.0-32.0); Mean Corpuscular Hgb Conc. 33.7 g/dL (32.0-36.0); Monocytes # (auto) 0.4 10 ^3/uL (0-1.3); Neutrophils # (auto) 2.4 10 ^3/uL (1.6-8.6); Neutrophils % (auto) 66.6 % (37.0-80.0); Nucleated Red Blood Cells % 0.2 %; Red Cell Distribution Width 16.3 % (11.8-14.3); White Blood Cell 3.6 10^3/uL (4.4-10.8)
[2022-06-29 06:47] LABS: INR 1.55 (0.9-1.15)
[2022-06-29 07:13] LABS: Potassium 3.6 mmol/L (3.5-5.1)
[2022-06-29 07:22] LABS: Albumin 2.1 g/dL (3.4-5.0); BUN/Creatinine Ratio 10.9 (10.0-20.0); Bilirubin, Total 1.4 mg/dL (0.2-1.0); Calcium 7.5 mg/dL (8.5-10.1); Total Protein 6.2 g/dL (6.4-8.2)
[2022-06-29 08:30] VITALS: BP 105/65
[2022-06-29] MEDS: cefTRIAXone 1GM/50ML D5W 50 ML IV SCH (09:25)
[2022-06-29] MEDS: FAMOTIDINE (10MG/ML) 2ML VL IV SCH (09:25)
[2022-06-29 12:50] VITALS: BP 109/75
[2022-06-29] MEDS ORDERED: LEVO750T8 PO (14:37)
[2022-06-29] MEDS ORDERED: METR500T PO (14:37)
== END 2022-06-29 15:47 | disposition home or self-care (01) | DRG 392 ==
LOC: ER 17:10 → OVERFLOW 22:23 → CENTRAL 06-26 08:10
PROVIDERS: ADMIT Nurse Practitioner Family; ATTEND Internal Medicine
DX: K57.20 Diverticulitis of large intestine with perforation and abscess without bleeding (principal); E78.5 Hyperlipidemia, unspecified; E87.6 Hypokalemia; E88.09 Other disorders of plasma-protein metabolism, not elsewhere classified; K52.9 Noninfective gastroenteritis and colitis, unspecified; K64.4 Residual hemorrhoidal skin tags; K64.8 Other hemorrhoids; K74.60 Unspecified cirrhosis of liver; M06.9 Rheumatoid arthritis, unspecified; D69.6 Thrombocytopenia, unspecified; I10 Essential (primary) hypertension; K59.00 Constipation, unspecified; Z20.822 Contact with and (suspected) exposure to COVID-19; R32 Unspecified urinary incontinence; Z66 Do not resuscitate; Z88.0 Allergy status to penicillin; Z80.0 Family history of malignant neoplasm of digestive organs; Z83.49 Family history of other endocrine, nutritional and metabolic diseases
CPT/HCPCS: 36415; 74176; 80053; 81001; 82105; 82140; 82728; 83516; 83735; 84443; 84484; 85025; 85610; 85730; 86225; 86235; 87086; 87426; 93005; 96365; 96366; 96368; 97163; G0378; J0696; J1885; J1956; J2405; J2543; J3490; J7042; P9047

== ENCOUNTER 2022-07-04 18:12 | Inpatient (IN) | payer OTHER ==
[~2022-07-04] VITALS: Ht 152.4 cm; Wt 79.0 kg
[~2022-07-04 18:12] MED LIST changes: -BENZ100C19 PO; +BENZ100C97 PO; +CETI1TAB36 PO; -CLOTCRE37 EX; +KETO2CRE4 EX; -LEFL20TA PO; +LEVO112T4 PO; -LEVO125T7 PO; +LEVO750T8 PO; +LISI-283 PO; -LISI20TA28 PO; -MELO7.5T9 PO; +METR500T PO; +OMEP-263 PO; -OMEP20TA PO; -SIMV-8 PO
[2022-07-04 18:55] LABS: Basophils # (auto) 0 10 ^3/uL (0-0.2); Basophils % (auto) 0.6 % (0.0-2.0); Eosinophils # (auto) 0.1 10 ^3/uL (0-0.8); Eosinophils % (auto) 1.2 % (0.0-7.0); Hematocrit 38.9 % (36.0-46.0); Lymphocytes # (auto) 0.7 10 ^3/uL (0.4-5.4); Lymphocytes % (auto) 14.5 % (10.0-50.0); Mean Corpuscular Hgb Conc. 33.5 g/dL (32.0-36.0); Mean Corpuscular Volume 92.6 fL (80.0-100.0); Monocytes # (auto) 0.4 10 ^3/uL (0-1.3); Neutrophils # (auto) 3.6 10 ^3/uL (1.6-8.6); Neutrophils % (auto) 75.7 % (37.0-80.0); Nucleated Red Blood Cells % 0.1 %; White Blood Cell 4.8 10^3/uL (4.4-10.8)
[2022-07-04 19:17] LABS: Albumin 2.5 g/dL (3.4-5.0); Calcium 7.6 mg/dL (8.5-10.1)
[2022-07-04 19:19] LABS: BUN/Creatinine Ratio 13.3 (10.0-20.0); Bilirubin, Total 1.6 mg/dL (0.2-1.0); Total Protein 7.2 g/dL (6.4-8.2)
[2022-07-04 19:22] LABS: Potassium 2.7 mmol/L (3.5-5.1)
[2022-07-04] MEDS ORDERED: POTASSIUM CHL 20MEQ/100ML 100 ML IV ONE (19:45)
[2022-07-04] MEDS ORDERED: POTASSIUM CHL 20 Meq TABLET PO ONE (19:45)
[2022-07-04] MEDS ORDERED: KETOROLAC TROMETH 60MG/2ML VIAL IM ONE (20:30)
[2022-07-04 21:48] LABS: Urine Bacteria FEW /hpf (None Seen); Urine Blood Negative /uL (Negative); Urine Hyaline Cast FEW /lpf (0 - 2); Urine Specific Gravity 1.016 (1.001-1.035); Urine WBC 1 /hpf (0 - 5)
[2022-07-04] MEDS ORDERED: LACTATED RINGER'S 1,000 ML IV ONE (22:00)
[2022-07-04] MEDS: POTASSIUM CHL 20MEQ/100ML 100 ML IV SCH (22:00)
[2022-07-04] MEDS ORDERED: POTASSIUM EFFERVESENT TAB 25 MEQ PO ONE (22:00)
[2022-07-05] MEDS: POTASSIUM CHL 20MEQ/100ML 100 ML IV SCH
[2022-07-05] MEDS ORDERED: IODIXANOL 320MG/ML 100ML BTL IV ONE (01:20)
[2022-07-05] MEDS ORDERED: levoFLOXacin 750MG 150 ML IV ONE (02:00)
[2022-07-05] MEDS ORDERED: LACTATED RINGER'S 1,000 ML IV ONE (02:00)
[2022-07-05] MEDS ORDERED: metroNIDAZOLE 500MG/100ML 100 ML IV ONE (02:00)
[2022-07-05] MEDS ORDERED: MAGNESIUM SULFATE 1GM/100ML 100 ML IV ONE (02:15)
[2022-07-05] MEDS ORDERED: MORPHINE SULFATE INJ 2 MG/ml SYRG IV PRN (03:30)
[2022-07-05] MEDS ORDERED: TEMAZEPAM 15 MG CAP PO PRN (03:30)
[2022-07-05] MEDS ORDERED: HYDROcodone-ACET 5/325MG TAB PO PRN (03:30)
[2022-07-05] MEDS ORDERED: ONDANSETRON HCL 4 MG/2 ML VIAL IV PRN (03:30)
[2022-07-05] MEDS ORDERED: ACETAMINOPHEN 325 MG TAB PO PRN (03:30)
[2022-07-05] MEDS ORDERED: levoFLOXacin 500MG 100 ML IV SCH (03:45)
[2022-07-05 12:21] LABS: Basophils # (auto) 0.1 10 ^3/uL (0-0.2); Basophils % (auto) 1.6 % (0.0-2.0); Eosinophils # (auto) 0.1 10 ^3/uL (0-0.8); Eosinophils % (auto) 1.8 % (0.0-7.0); Hematocrit 38.3 % (36.0-46.0); Hemoglobin 12.7 g/dL (12.2-16.2); Lymphocytes # (auto) 0.5 10 ^3/uL (0.4-5.4); Lymphocytes % (auto) 12.7 % (10.0-50.0); Mean Corpuscular Hemoglobin 30.8 pg (28.0-32.0); Mean Corpuscular Hgb Conc. 33.1 g/dL (32.0-36.0); Mean Corpuscular Volume 93.1 fL (80.0-100.0); Monocytes # (auto) 0.4 10 ^3/uL (0-1.3); Neutrophils # (auto) 3.1 10 ^3/uL (1.6-8.6); Neutrophils % (auto) 74.9 % (37.0-80.0); Nucleated Red Blood Cells % 0.2 %; Red Blood Cells 4.11 10^6/uL (4.0-5.20); Red Cell Distribution Width 17.2 % (11.8-14.3); White Blood Cell 4.1 10^3/uL (4.4-10.8)
[2022-07-05 12:51] LABS: Albumin 2.5 g/dL (3.4-5.0); BUN/Creatinine Ratio 13.2 (10.0-20.0); Calcium 8.1 mg/dL (8.5-10.1); Magnesium 1.9 mg/dL (1.6-2.6); Potassium 3.4 mmol/L (3.5-5.1)
[2022-07-05 13:04] LABS: Bilirubin, Total 1.6 mg/dL (0.2-1.0); Total Protein 7.5 g/dL (6.4-8.2)
[2022-07-05] MEDS ORDERED: MEROPENEM 1GM IVPB 100 ML IV SCH ×3 (14:00)
[2022-07-05] MEDS ORDERED: metroNIDAZOLE 500MG/100ML 100 ML IV SCH (14:00)
[2022-07-05] MEDS ORDERED: PIPERACILLIN-TAZOB 3.375GM 100 ML IV SCH (14:00)
[2022-07-05] MEDS: MEROPENEM 1GM IVPB 100 ML IV SCH ×2 (14:10→21:55)
[2022-07-05] MEDS ORDERED: POTASSIUM CHL 20 Meq TABLET PO ONE (16:00)
[2022-07-05] MEDS: LACTATED RINGER'S 1,000 ML IV SCH (18:09)
[2022-07-05 23:33] VITALS: BP 118/73
[2022-07-06 04:46] VITALS: BP 123/72
[2022-07-06] MEDS: MEROPENEM 1GM IVPB 100 ML IV SCH ×2 (05:32→14:17)
[2022-07-06 06:41] LABS: Basophils # (auto) 0 10 ^3/uL (0-0.2); Basophils % (auto) 0.6 % (0.0-2.0); Eosinophils # (auto) 0.1 10 ^3/uL (0-0.8); Eosinophils % (auto) 1.8 % (0.0-7.0); Hematocrit 34.2 % (36.0-46.0); Hemoglobin 11.7 g/dL (12.2-16.2); Lymphocytes # (auto) 0.5 10 ^3/uL (0.4-5.4); Lymphocytes % (auto) 13.7 % (10.0-50.0); Mean Corpuscular Hemoglobin 31.6 pg (28.0-32.0); Mean Corpuscular Hgb Conc. 34.3 g/dL (32.0-36.0); Mean Corpuscular Volume 92.3 fL (80.0-100.0); Monocytes # (auto) 0.3 10 ^3/uL (0-1.3); Monocytes % (auto) 8.6 % (0.0-12.0); Neutrophils # (auto) 2.7 10 ^3/uL (1.6-8.6); Neutrophils % (auto) 75.3 % (37.0-80.0); Nucleated Red Blood Cells % 0.2 %; Red Cell Distribution Width 16.9 % (11.8-14.3); White Blood Cell 3.5 10^3/uL (4.4-10.8)
[2022-07-06 07:17] LABS: Potassium 3.2 mmol/L (3.5-5.1)
[2022-07-06 07:33] LABS: Albumin 2.3 g/dL (3.4-5.0); BUN/Creatinine Ratio 11.9 (10.0-20.0); Bilirubin, Total 1.7 mg/dL (0.2-1.0); Calcium 7.9 mg/dL (8.5-10.1); Magnesium 1.7 mg/dL (1.6-2.6); Total Protein 6.5 g/dL (6.4-8.2)
[2022-07-06 08:00] VITALS: BP 126/69
[2022-07-06 09:00] VITALS: BP 135/77
[2022-07-06] MEDS ORDERED: POTASSIUM CHL 20 Meq TABLET PO ONE (11:15)
[2022-07-06 13:00] VITALS: BP 126/69
[2022-07-06 13:17] LABS: % Iron Saturation 54.7 % (15-50)
[2022-07-06] MEDS: LACTATED RINGER'S 1,000 ML IV SCH (14:17)
[2022-07-06 15:00] LABS: Albumin 2.3 g/dL (3.4-5.0)
[2022-07-06 15:02] LABS: Bilirubin, Total 1.8 mg/dL (0.2-1.0); Total Protein 6.6 g/dL (6.4-8.2)
[2022-07-06 16:59] VITALS: BP 123/67
== END 2022-07-06 17:47 | disposition home or self-care (01) | DRG 392 ==
LOC: ER 18:12 → OVERFLOW 07-05 03:16 → EAST 07-05 22:00
PROVIDERS: ADMIT Nurse Practitioner; ATTEND Internal Medicine
DX: K57.32 Diverticulitis of large intestine without perforation or abscess without bleeding (principal); N30.00 Acute cystitis without hematuria; E46 Unspecified protein-calorie malnutrition; R18.8 Other ascites; K74.60 Unspecified cirrhosis of liver; Z66 Do not resuscitate; E86.0 Dehydration; M06.8A Other specified rheumatoid arthritis, other specified site; E87.6 Hypokalemia; E66.9 Obesity, unspecified; I10 Essential (primary) hypertension; E03.9 Hypothyroidism, unspecified; K21.9 Gastro-esophageal reflux disease without esophagitis; E78.5 Hyperlipidemia, unspecified; Z80.0 Family history of malignant neoplasm of digestive organs; Z88.0 Allergy status to penicillin; Z68.34 Body mass index [BMI] 34.0-34.9, adult
CPT/HCPCS: 36415; 74177; 80053; 80076; 81001; 82390; 83540; 83550; 83735; 84132; 85025; 93005; 93971; 96361; 96365; 96372; G0378; J1885; J1956; J2185; J3480; J3490; Q9967

== ENCOUNTER 2022-11-08 18:03 | Inpatient (IN) | payer OTHER ==
[~2022-11-08] VITALS: Ht 152.4 cm; Wt 72.4 kg
[~2022-11-08 18:03] MED LIST changes: -OMEP-263 PO; +OMEP-448 PO
[2022-11-08 19:58] LABS: Basophils # (auto) 0 10 ^3/uL (0-0.2); Basophils % (auto) 0.4 % (0.0-2.0); Eosinophils # (auto) 0.1 10 ^3/uL (0-0.8); Eosinophils % (auto) 1.2 % (0.0-7.0); Hematocrit 39.9 % (36.0-46.0); Hemoglobin 13.3 g/dL (12.2-16.2); Lymphocytes # (auto) 1.2 10 ^3/uL (0.4-5.4); Lymphocytes % (auto) 13.8 % (10.0-50.0); Mean Corpuscular Hemoglobin 35.4 pg (28.0-32.0); Mean Corpuscular Hgb Conc. 33.4 g/dL (32.0-36.0); Monocytes # (auto) 0.4 10 ^3/uL (0-1.3); Monocytes % (auto) 5.1 % (0.0-12.0); Neutrophils % (auto) 79.5 % (37.0-80.0); Nucleated Red Blood Cells % 0.5 %; Red Blood Cells 3.77 10^6/uL (4.0-5.20); Red Cell Distribution Width 17.6 % (11.8-14.3); White Blood Cell 8.8 10^3/uL (4.4-10.8)
[2022-11-08 20:10] LABS: Calcium 8.5 mg/dL (8.7-10.4); Potassium 5.2 mmol/L (3.5-5.1)
[2022-11-08 20:16] LABS: Albumin 2.3 g/dL (3.4-5.0); BUN/Creatinine Ratio 23.7 (10.0-20.0); Bilirubin, Total 2.6 mg/dL (0.2-1.0); Total Protein 6.9 g/dL (6.4-8.2)
[2022-11-09] MEDS ORDERED: SODIUM BICARBONATE 8.4 % INJ 50ML VIAL IV ONE ×2 (02:45→07:30)
[2022-11-09] MEDS ORDERED: ALBUMIN 25% 100 ML IV ONE ×2 (02:45→07:30)
[2022-11-09] MEDS ORDERED: InsuLIN REG 1unit/0.01ml Soln (100units/ml) IV ONE ×2 (02:45→07:30)
[2022-11-09] MEDS ORDERED: FUROSEMIDE 40 MG/4 ML VIAL IV ONE (02:45)
[2022-11-09] MEDS ORDERED: CALCIUM GLUC 1,000mg/50ml-NS 50 ML IV ONE ×2 (02:45→07:30)
[2022-11-09 06:07] LABS: INR 1.38 (0.9-1.15); Partial Thromboplastin Time 32.5 SEC (24.5-34.5); Prothrombin Time 14.2 sec (9.3-11.8)
[2022-11-09 06:34] LABS: Albumin 2.2 g/dL (3.4-5.0); BUN/Creatinine Ratio 22.5 (10.0-20.0); Calcium 8.5 mg/dL (8.7-10.4)
[2022-11-09 06:37] LABS: Bilirubin, Total 2.4 mg/dL (0.2-1.0)
[2022-11-09] MEDS ORDERED: SODIUM ZIRCONIUM CYCL 10 GM PAK PO ONE (07:30)
[2022-11-09] MEDS ORDERED: DEXTROSE (50%) 50ML SYRG IV ONE (07:30)
[2022-11-09] MEDS: PANTOPRAZOLE 40 MG TAB PO SCH (08:24)
[2022-11-09] MEDS: LEVOTHYROXINE SODIUM 112 MCG TAB PO SCH (08:24)
[2022-11-09 09:00] VITALS: PULSE 74; RESP 19; O2SAT 94
[2022-11-09] MEDS ORDERED: BUMETANIDE 2.5mg/10ml (0.25 mg/ml) INJ IV ONE (09:30)
[2022-11-09] MEDS ORDERED: FUROSEMIDE 40 MG TAB PO SCH (10:00)
[2022-11-09] MEDS ORDERED: SODIUM CHLORIDE 0.9% 1,000 ML IV ONE (10:15)
[2022-11-09] MEDS: DEXTROSE (50%) 50ML SYRG IV ONE ×2 (10:16→12:29)
[2022-11-09] MEDS ORDERED: MIDODRINE HCL 10 MG TAB PO ONE (10:45)
[2022-11-09 11:28] LABS: INR 1.53 (0.9-1.15); Prothrombin Time 15.6 sec (9.3-11.8)
[2022-11-09 11:51] LABS: Calcium 8.9 mg/dL (8.7-10.4); Potassium 5.4 mmol/L (3.5-5.1)
[2022-11-09] MEDS: NOREPINEPHRINE 8 MG/250ML KIT 250 ML IV SCH ×2 (11:51→17:10)
[2022-11-09 11:53] LABS: BUN/Creatinine Ratio 21.3 (10.0-20.0)
[2022-11-09 12:38] LABS: COVID19 ANTIGEN SOFIA FIA NEGATIVE (NEGATIVE)
[2022-11-09] MEDS: SODIUM ZIRCONIUM CYCL 10 GM PAK PO SCH ×2 (13:28→21:00)
[2022-11-09] MEDS ORDERED: ALBUTEROL SULF 2.5 MG/0.5ML(0.5%) NEB SOLN NEB ONE (15:45)
[2022-11-09] MEDS: ALBUMIN 25% 100 ML IV SCH ×2 (17:13→18:05)
[2022-11-09 18:02] LABS: Magnesium 1.7 mg/dL (1.6-2.6)
[2022-11-09 18:04] LABS: Phosphorus 4.8 mg/dL (2.4-5.1)
[2022-11-09] MEDS: MIDODRINE HCL 10 MG TAB PO SCH (18:04)
[2022-11-09 18:30] LABS: Urine Bacteria FEW /hpf (None Seen); Urine Blood 2+ /uL (Negative); Urine Clarity Clear (Clear); Urine Color Colorless (Yellow); Urine Hyaline Cast MOD /lpf (0 - 2); Urine Protein, UAD Negative (Negative); Urine Specific Gravity 1.007 (1.001-1.035); Urine Urobilinogen Normal (Negative); Urine WBC 4 /hpf (0 - 5)
[2022-11-09 18:50] LABS: Sodium Urine 110 mmol/L (40-220)
[2022-11-09 18:55] LABS: Protein, Urine < 6.0 mg/dL (0.0-11.9)
[2022-11-09 18:57] LABS: Creatinine, Urine 22.26 mg/dL (30.0-125.0)
[2022-11-09 19:15] VITALS: PULSE 105; RESP 24; O2SAT 98
[2022-11-09] MEDS: BUMETANIDE INJECTION 25 MG in GIVE UN-DILUTED 0 ML IV SCH (20:59)
[2022-11-09] MEDS: NYSTATIN TOPICAL POWDER 15GM TOP SCH (21:00)
[2022-11-09] MEDS: OCTREOTIDE ACETATE 100 MCG/ML VL SUBCUT SCH (21:00)
[2022-11-09 23:57] LABS: Body Fluid pH 7
[2022-11-09 23:58] LABS: Body Fluid Polymorphonuclear 26 % (0-25); Body Fluid Red Blood Cells 165 CUMM (0-2000); Body Fluid White Blood Cells 92.5 CUMM (0-200)
[2022-11-10] VITALS (74 sets, daily range): BP systolic 77–151; BP diastolic 34–81; PULSE 58–83; RESP 13–27; TEMP 98.2–98.6; O2SAT 92–99
[2022-11-10 06:15] LABS: Basophils # (auto) 0.1 10 ^3/uL (0-0.2); Basophils % (auto) 0.5 % (0.0-2.0); Mean Corpuscular Hemoglobin 35.2 pg (28.0-32.0)
[2022-11-10 06:18] LABS: Eosinophils # (auto) 0.2 10 ^3/uL (0-0.8); Eosinophils % (auto) 1.1 % (0.0-7.0); Hematocrit 36.4 % (36.0-46.0); Lymphocytes # (auto) 1.8 10 ^3/uL (0.4-5.4); Lymphocytes % (auto) 13.1 % (10.0-50.0); Mean Corpuscular Volume 106.8 fL (80.0-100.0); Monocytes % (auto) 7.4 % (0.0-12.0); Neutrophils # (auto) 10.8 10 ^3/uL (1.6-8.6); Neutrophils % (auto) 77.9 % (37.0-80.0); Nucleated Red Blood Cells % 0.2 %; Red Blood Cells 3.41 10^6/uL (4.0-5.20); Red Cell Distribution Width 17.7 % (11.8-14.3); White Blood Cell 13.9 10^3/uL (4.4-10.8)
[2022-11-10] MEDS: SODIUM ZIRCONIUM CYCL 10 GM PAK PO SCH ×3 (06:26→21:27)
[2022-11-10] MEDS: MIDODRINE HCL 10 MG TAB PO SCH ×3 (06:26→18:09)
[2022-11-10] MEDS: OCTREOTIDE ACETATE 100 MCG/ML VL SUBCUT SCH ×3 (06:27→21:27)
[2022-11-10] MEDS: LEVOTHYROXINE SODIUM 112 MCG TAB PO SCH (06:28)
[2022-11-10 06:41] LABS: Alanine Aminotransferase 29 U/L (7-40); Alkaline Phosphatase 70 U/L (46-116); Anion Gap 16.8 (5-15); Aspartate Aminotransferase 42 U/L (13-40); BUN/Creatinine Ratio 17.9 (10.0-20.0); Blood Urea Nitrogen 50 mg/dL (9-23); Calcium 8.9 mg/dL (8.7-10.4); Carbon Dioxide 16.2 mmol/L (20-30); Chloride 109 mmol/L (98-107); Glucose 174 mg/dL (74-106); Potassium 4.3 mmol/L (3.5-5.1); Sodium 142 mmol/L (136-145)
[2022-11-10 06:42] LABS: Albumin 3.3 g/dL (3.2-4.8); Bilirubin, Total 2.9 mg/dL (0.2-1.0); Total Protein 6.5 g/dL (5.7-8.2)
[2022-11-10] MEDS: PANTOPRAZOLE 40 MG TAB PO SCH (09:44)
[2022-11-10] MEDS: NYSTATIN TOPICAL POWDER 15GM TOP SCH ×2 (09:44→22:00)
[2022-11-10] MEDS: NOREPINEPHRINE 8 MG/250ML KIT 250 ML IV SCH ×2 (09:45→19:47)
[2022-11-10] MEDS ORDERED: cefTRIAXone 1GM/50ML D5W 50 ML IV ONE (11:15)
[2022-11-10] MEDS: ERGOCALCIFEROL 50,000 UNIT(1.25MG) CAP PO SCH (12:20)
[2022-11-10] MEDS: oxyCODONE HCL 5MG TAB PO PRN ×2 (13:40→18:09)
[2022-11-10] MEDS: ALBUMIN 25% 100 ML IV SCH ×2 (15:25→21:28)
[2022-11-10] MEDS: BUMETANIDE INJECTION 25 MG in GIVE UN-DILUTED 0 ML IV SCH ×2 (17:30→19:47)
[2022-11-10] MEDS: SODIUM BICARBONATE 650 MG TAB PO SCH ×2 (18:09→21:28)
[2022-11-10] MEDS ORDERED: GABAPENTIN 300 MG CAP PO ONE (22:30)
[2022-11-11] VITALS (95 sets, daily range): BP systolic 83–133; BP diastolic 43–73; PULSE 56–79; RESP 10–20; TEMP 97.6–98.9; O2SAT 89–98
[2022-11-11] MEDS ORDERED: KETOROLAC TROMETH 30 MG/ML 1ML VIAL IV ONE (00:30)
[2022-11-11] MEDS: ALBUMIN 25% 100 ML IV SCH (03:54)
[2022-11-11] MEDS: oxyCODONE HCL 5MG TAB PO PRN (03:54)
[2022-11-11 04:29] LABS: Nucleated Red Blood Cells % 0.1 %; White Blood Cell 8.8 10^3/uL (4.4-10.8)
[2022-11-11 04:36] LABS: Basophils # (auto) 0 10 ^3/uL (0-0.2); Basophils % (auto) 0.4 % (0.0-2.0); Eosinophils # (auto) 0.1 10 ^3/uL (0-0.8); Eosinophils % (auto) 1.6 % (0.0-7.0); Hematocrit 30.8 % (36.0-46.0); Hemoglobin 10.5 g/dL (12.2-16.2); Lymphocytes # (auto) 1.2 10 ^3/uL (0.4-5.4); Lymphocytes % (auto) 13.7 % (10.0-50.0); Mean Corpuscular Hemoglobin 36.1 pg (28.0-32.0); Mean Corpuscular Volume 106.3 fL (80.0-100.0); Monocytes # (auto) 0.8 10 ^3/uL (0-1.3); Monocytes % (auto) 8.8 % (0.0-12.0); Neutrophils # (auto) 6.7 10 ^3/uL (1.6-8.6); Neutrophils % (auto) 75.5 % (37.0-80.0); Red Cell Distribution Width 17.8 % (11.8-14.3)
[2022-11-11 05:03] LABS: Alanine Aminotransferase 18 U/L (7-40); Albumin 3.7 g/dL (3.2-4.8); Alkaline Phosphatase 48 U/L (46-116); Anion Gap 14.5 (5-15); Aspartate Aminotransferase 21 U/L (13-40); BUN/Creatinine Ratio 17.2 (10.0-20.0); Bilirubin, Total 3.3 mg/dL (0.2-1.0); Blood Urea Nitrogen 43 mg/dL (9-23); Calcium 8.8 mg/dL (8.7-10.4); Carbon Dioxide 21.5 mmol/L (20-30); Chloride 105 mmol/L (98-107); Glucose 141 mg/dL (74-106); Magnesium 1.5 mg/dL (1.6-2.6); Potassium 3.2 mmol/L (3.5-5.1); Sodium 141 mmol/L (136-145); Total Protein 6.2 g/dL (5.7-8.2)
[2022-11-11] MEDS: SODIUM ZIRCONIUM CYCL 10 GM PAK PO SCH ×3 (05:17→05:59)
[2022-11-11] MEDS: SODIUM BICARBONATE 650 MG TAB PO SCH ×4 (05:18→21:44)
[2022-11-11] MEDS: OCTREOTIDE ACETATE 100 MCG/ML VL SUBCUT SCH ×3 (05:18→21:44)
[2022-11-11] MEDS: MIDODRINE HCL 10 MG TAB PO SCH ×3 (05:18→17:42)
[2022-11-11] MEDS: LEVOTHYROXINE SODIUM 112 MCG TAB PO SCH (06:28)
[2022-11-11] MEDS ORDERED: POTASSIUM CHL 20 Meq TABLET PO ONE (07:30)
[2022-11-11 07:58] LABS: Anisocytosis Slight
[2022-11-11 07:59] LABS: Macrocytosis Slight; Platelet Estimate Decreased
[2022-11-11] MEDS: NYSTATIN TOPICAL POWDER 15GM TOP SCH ×2 (10:00→21:41)
[2022-11-11] MEDS: PANTOPRAZOLE 40 MG TAB PO SCH (10:28)
[2022-11-11] MEDS: cefTRIAXone 1GM/50ML D5W 50 ML IV SCH (10:29)
[2022-11-11 12:06] LABS: Protein, Body Fluid 1.6 g/dL (.)
[2022-11-11] MEDS: ONDANSETRON HCL 4 MG/2 ML VIAL IV PRN ×2 (12:08→17:41)
[2022-11-11] MEDS ORDERED: MAGNESIUM OXIDE 400 MG TAB PO ONE (14:00)
[2022-11-11] MEDS: BUMETANIDE INJECTION 12.5 MG in GIVE UN-DILUTED 0 ML IV SCH ×2 (14:29→19:45)
[2022-11-11] MEDS: Ensure HIGH Protein Chocolate 8oz Bottle PO SCH ×2 (18:00→22:00)
[2022-11-11] MEDS: NOREPINEPHRINE 8 MG/250ML KIT 250 ML IV SCH (21:41)
[2022-11-11] MEDS: MAGNESIUM OXIDE 400 MG TAB PO SCH (21:44)
[2022-11-12] VITALS (77 sets, daily range): BP systolic 73–122; BP diastolic 41–74; PULSE 70–82; RESP 8–20; TEMP 97.8–98.7; O2SAT 82–100
[2022-11-12] MEDS: oxyCODONE HCL 5MG TAB PO PRN ×2 (01:12→09:18)
[2022-11-12 04:48] LABS: Alanine Aminotransferase 18 U/L (7-40); Albumin 3.6 g/dL (3.2-4.8); Alkaline Phosphatase 60 U/L (46-116); Anion Gap 14.8 (5-15); Aspartate Aminotransferase 26 U/L (13-40); BUN/Creatinine Ratio 17.3 (10.0-20.0); Blood Urea Nitrogen 44 mg/dL (9-23); Calcium 8.4 mg/dL (8.5-10.1); Carbon Dioxide 23.2 mmol/L (20-30); Chloride 104 mmol/L (98-107); Glucose 90 mg/dL (74-106); Magnesium 1.3 mg/dL (1.6-2.6); Potassium 3.7 mmol/L (3.5-5.1); Sodium 142 mmol/L (136-145)
[2022-11-12 04:49] LABS: Bilirubin, Total 3.3 mg/dL (0.2-1.0); Phosphorus 4.7 mg/dL (2.4-5.1); Total Protein 6.3 g/dL (5.7-8.2)
[2022-11-12] MEDS: Ensure HIGH Protein Chocolate 8oz Bottle PO SCH ×2 (06:00→11:50)
[2022-11-12] MEDS: MIDODRINE HCL 10 MG TAB PO SCH ×3 (06:13→18:13)
[2022-11-12] MEDS: SODIUM BICARBONATE 650 MG TAB PO SCH ×4 (06:13→22:13)
[2022-11-12] MEDS: OCTREOTIDE ACETATE 100 MCG/ML VL SUBCUT SCH ×3 (06:15→22:15)
[2022-11-12] MEDS: LEVOTHYROXINE SODIUM 112 MCG TAB PO SCH (06:41)
[2022-11-12] MEDS: ONDANSETRON HCL 4 MG/2 ML VIAL IV PRN (07:49)
[2022-11-12 08:39] LABS: Basophils # (auto) 0.1 10 ^3/uL (0-0.2); Basophils % (auto) 0.3 % (0.0-2.0); Eosinophils # (auto) 0.1 10 ^3/uL (0-0.8); Eosinophils % (auto) 0.7 % (0.0-7.0); Hematocrit 37.9 % (36.0-46.0); Hemoglobin 12.3 g/dL (12.2-16.2); Lymphocytes # (auto) 1.3 10 ^3/uL (0.4-5.4); Lymphocytes % (auto) 6.9 % (10.0-50.0); Mean Corpuscular Hemoglobin 34.9 pg (28.0-32.0); Mean Corpuscular Hgb Conc. 32.5 g/dL (32.0-36.0); Mean Corpuscular Volume 107.2 fL (80.0-100.0); Monocytes # (auto) 1.2 10 ^3/uL (0-1.3); Monocytes % (auto) 6.3 % (0.0-12.0); Neutrophils # (auto) 16.4 10 ^3/uL (1.6-8.6); Neutrophils % (auto) 85.8 % (37.0-80.0); Nucleated Red Blood Cells % 0.2 %; Red Blood Cells 3.54 10^6/uL (4.0-5.20); Red Cell Distribution Width 17.3 % (11.8-14.3); White Blood Cell 19.2 10^3/uL (4.4-10.8)
[2022-11-12] MEDS: cefTRIAXone 1GM/50ML D5W 50 ML IV SCH (09:18)
[2022-11-12] MEDS: PANTOPRAZOLE 40 MG TAB PO SCH (09:18)
[2022-11-12] MEDS: MAGNESIUM OXIDE 400 MG TAB PO SCH ×2 (09:19→22:12)
[2022-11-12] MEDS: POTASSIUM CHL 20 Meq TABLET PO SCH (09:19)
[2022-11-12] MEDS: NYSTATIN TOPICAL POWDER 15GM TOP SCH ×2 (09:20→22:15)
[2022-11-12] MEDS ORDERED: POTASSIUM CHL 20 Meq TABLET PO SCH (10:00)
[2022-11-12] MEDS: ENSURE CLEAR Mixed Berry 8oz Carton PO SCH ×2 (12:00→18:00)
[2022-11-12 14:07] LABS: INR 2.02 (0.9-1.15); Prothrombin Time 20.3 sec (9.3-11.8)
[2022-11-12] MEDS ORDERED: LIDOCAINE 1% (LOCAL ANESTH.) PF 5ml SDV ID ONE (14:45)
[2022-11-12] MEDS: NOREPINEPHRINE 8 MG/250ML KIT 250 ML IV SCH (15:06)
[2022-11-12] MEDS: MAGNESIUM SULFATE 1GM/100ML 100 ML IV SCH ×4 (15:36→20:17)
[2022-11-12] MEDS: BUMETANIDE INJECTION 12.5 MG in GIVE UN-DILUTED 0 ML IV SCH (18:14)
[2022-11-12] MEDS: SODIUM CHLOR 0.9% PF (SALINE LOCK) 10ML VIAL/SYR IV SCH (22:12)
[2022-11-13] VITALS (57 sets, daily range): BP systolic 73–141; BP diastolic 47–117; PULSE 54–79; RESP 10–22; TEMP 98–99.7; O2SAT 89–100
[2022-11-13] MEDS: NOREPINEPHRINE 8 MG/250ML KIT 250 ML IV SCH ×2 (04:18→16:11)
[2022-11-13 04:56] LABS: Eosinophils # (auto) 0.2 10 ^3/uL (0-0.8); Hemoglobin 12.2 g/dL (12.2-16.2); Lymphocytes # (auto) 1.5 10 ^3/uL (0.4-5.4); Lymphocytes % (auto) 11.4 % (10.0-50.0); Neutrophils # (auto) 10.3 10 ^3/uL (1.6-8.6); Nucleated Red Blood Cells % 0.5 %
[2022-11-13 05:02] LABS: Basophils # (auto) 0 10 ^3/uL (0-0.2); Basophils % (auto) 0.3 % (0.0-2.0); Eosinophils % (auto) 1.4 % (0.0-7.0); Hematocrit 36.4 % (36.0-46.0); Mean Corpuscular Hemoglobin 35.6 pg (28.0-32.0); Mean Corpuscular Hgb Conc. 33.6 g/dL (32.0-36.0); Mean Corpuscular Volume 106.1 fL (80.0-100.0); Monocytes # (auto) 0.9 10 ^3/uL (0-1.3); Monocytes % (auto) 7.3 % (0.0-12.0); Neutrophils % (auto) 79.6 % (37.0-80.0); Red Blood Cells 3.43 10^6/uL (4.0-5.20); Red Cell Distribution Width 16.8 % (11.8-14.3); White Blood Cell 12.9 10^3/uL (4.4-10.8)
[2022-11-13 05:11] LABS: Alanine Aminotransferase 13 U/L (7-40); Alkaline Phosphatase 63 U/L (46-116); Calcium 8.3 mg/dL (8.7-10.4); Carbon Dioxide 24.8 mmol/L (20-30); Chloride 99 mmol/L (98-107); Glucose 114 mg/dL (74-106); Potassium 3.2 mmol/L (3.5-5.1)
[2022-11-13 05:12] LABS: Albumin 3.2 g/dL (3.2-4.8); Anion Gap 12.2 (5-15); Aspartate Aminotransferase 17 U/L (13-40); BUN/Creatinine Ratio 17.3 (10.0-20.0); Bilirubin, Total 3.2 mg/dL (0.2-1.0); Blood Urea Nitrogen 43 mg/dL (9-23); Phosphorus 4.6 mg/dL (2.4-5.1); Sodium 136 mmol/L (136-145); Total Protein 6.1 g/dL (5.7-8.2)
[2022-11-13] MEDS: SODIUM BICARBONATE 650 MG TAB PO SCH ×4 (06:03→22:19)
[2022-11-13] MEDS: MIDODRINE HCL 10 MG TAB PO SCH ×3 (06:03→17:48)
[2022-11-13] MEDS: OCTREOTIDE ACETATE 100 MCG/ML VL SUBCUT SCH ×3 (06:04→22:18)
[2022-11-13] MEDS: LEVOTHYROXINE SODIUM 112 MCG TAB PO SCH (06:57)
[2022-11-13] MEDS: cefTRIAXone 1GM/50ML D5W 50 ML IV SCH (10:14)
[2022-11-13] MEDS: SODIUM CHLOR 0.9% PF (SALINE LOCK) 10ML VIAL/SYR IV SCH ×2 (10:15→22:16)
[2022-11-13] MEDS: MAGNESIUM OXIDE 400 MG TAB PO SCH ×2 (10:15→22:16)
[2022-11-13] MEDS: POTASSIUM CHL 20 Meq TABLET PO SCH (10:15)
[2022-11-13] MEDS: PANTOPRAZOLE 40 MG TAB PO SCH (10:16)
[2022-11-13] MEDS: NYSTATIN TOPICAL POWDER 15GM TOP SCH ×2 (10:16→22:18)
[2022-11-13] MEDS: ENSURE CLEAR Mixed Berry 8oz Carton PO SCH ×3 (10:16→17:49)
[2022-11-13] MEDS: ONDANSETRON HCL 4 MG/2 ML VIAL IV PRN (10:26)
[2022-11-13] MEDS: POTASSIUM CHL 20MEQ/100ML 100 ML IV SCH ×2 (12:49→14:28)
[2022-11-13] MEDS ORDERED: LACTULOSE 20Gm/30ML SOLN PO PRN (14:15)
[2022-11-13] MEDS: BUMETANIDE INJECTION 12.5 MG in GIVE UN-DILUTED 0 ML IV SCH (22:15)
[2022-11-13] MEDS: ALBUMIN 25% 50 ML IV SCH (22:15)
[2022-11-13] MEDS: DOCUSATE SOD 100 MG CAP PO SCH (22:17)
[2022-11-14] VITALS (60 sets, daily range): BP systolic 82–189; BP diastolic 38–94; PULSE 49–92; RESP 13–21; TEMP 97.8–99.3; O2SAT 93–100
[2022-11-14 04:18] LABS: Mean Corpuscular Volume 105.7 fL (80.0-100.0)
[2022-11-14 04:23] LABS: Basophils # (auto) 0 10 ^3/uL (0-0.2); Basophils % (auto) 0.3 % (0.0-2.0); Eosinophils # (auto) 0.3 10 ^3/uL (0-0.8); Eosinophils % (auto) 2.7 % (0.0-7.0); Hematocrit 36.7 % (36.0-46.0); Hemoglobin 12.5 g/dL (12.2-16.2); Lymphocytes # (auto) 1.2 10 ^3/uL (0.4-5.4); Lymphocytes % (auto) 12.7 % (10.0-50.0); Mean Corpuscular Hgb Conc. 34.1 g/dL (32.0-36.0); Monocytes # (auto) 0.9 10 ^3/uL (0-1.3); Monocytes % (auto) 9.4 % (0.0-12.0); Neutrophils # (auto) 7.2 10 ^3/uL (1.6-8.6); Neutrophils % (auto) 74.9 % (37.0-80.0); Nucleated Red Blood Cells % 0.3 %; Red Blood Cells 3.48 10^6/uL (4.0-5.20); Red Cell Distribution Width 16.8 % (11.8-14.3); White Blood Cell 9.6 10^3/uL (4.4-10.8)
[2022-11-14 04:46] LABS: Alanine Aminotransferase 11 U/L (7-40); Albumin 3.1 g/dL (3.2-4.8); Alkaline Phosphatase 61 U/L (46-116); Aspartate Aminotransferase 18 U/L (13-40); BUN/Creatinine Ratio 21.4 (10.0-20.0); Bilirubin, Total 3.5 mg/dL (0.2-1.0); Blood Urea Nitrogen 41 mg/dL (9-23); Calcium 8.4 mg/dL (8.7-10.4); Chloride 98 mmol/L (98-107); Glucose 117 mg/dL (74-106); Potassium 3.1 mmol/L (3.5-5.1); Sodium 137 mmol/L (136-145); Total Protein 5.9 g/dL (5.7-8.2)
[2022-11-14] MEDS: MIDODRINE HCL 10 MG TAB PO SCH ×3 (06:00→17:40)
[2022-11-14] MEDS: SODIUM BICARBONATE 650 MG TAB PO SCH ×4 (06:00→22:18)
[2022-11-14] MEDS: OCTREOTIDE ACETATE 100 MCG/ML VL SUBCUT SCH ×3 (06:01→22:19)
[2022-11-14] MEDS: LEVOTHYROXINE SODIUM 112 MCG TAB PO SCH (06:40)
[2022-11-14] MEDS: NOREPINEPHRINE 8 MG/250ML KIT 250 ML IV SCH ×2 (06:40→18:50)
[2022-11-14] MEDS: ENSURE CLEAR Mixed Berry 8oz Carton PO SCH ×3 (08:53→17:40)
[2022-11-14] MEDS: cefTRIAXone 1GM/50ML D5W 50 ML IV SCH (08:53)
[2022-11-14] MEDS ORDERED: POTASSIUM EFFERVESENT TAB 25 MEQ PO ONE (09:45)
[2022-11-14] MEDS: LACTULOSE 20Gm/30ML SOLN PO SCH (10:01)
[2022-11-14] MEDS: MAGNESIUM OXIDE 400 MG TAB PO SCH ×2 (10:02→22:18)
[2022-11-14] MEDS: DOCUSATE SOD 100 MG CAP PO SCH ×2 (10:02→22:00)
[2022-11-14] MEDS: SODIUM CHLOR 0.9% PF (SALINE LOCK) 10ML VIAL/SYR IV SCH ×2 (10:02→22:18)
[2022-11-14] MEDS: PANTOPRAZOLE 40 MG TAB PO SCH (10:02)
[2022-11-14] MEDS: ALBUMIN 25% 50 ML IV SCH (10:03)
[2022-11-14] MEDS: NYSTATIN TOPICAL POWDER 15GM TOP SCH ×2 (10:06→22:19)
[2022-11-14] MEDS: BUMETANIDE INJECTION 12.5 MG in GIVE UN-DILUTED 0 ML IV SCH ×2 (10:30→18:50)
[2022-11-14] MEDS: ONDANSETRON HCL 4 MG/2 ML VIAL IV PRN (12:51)
[2022-11-14] MEDS: oxyCODONE HCL 5MG TAB PO PRN (17:40)
[2022-11-15] VITALS (72 sets, daily range): BP systolic 78–118; BP diastolic 43–63; PULSE 48–130; RESP 10–21; TEMP 98.1–99.3; O2SAT 78–100
[2022-11-15 04:18] LABS: Alanine Aminotransferase 10 U/L (7-40); Alkaline Phosphatase 61 U/L (46-116); Anion Gap 8.1 (5-15); Aspartate Aminotransferase 21 U/L (13-40); BUN/Creatinine Ratio 24.4 (10.0-20.0); Blood Urea Nitrogen 39 mg/dL (9-23); Calcium 8.6 mg/dL (8.7-10.4); Carbon Dioxide 34.9 mmol/L (20-30); Chloride 96 mmol/L (98-107); Glucose 125 mg/dL (74-106); Potassium 3.1 mmol/L (3.5-5.1); Sodium 139 mmol/L (136-145)
[2022-11-15 04:19] LABS: Total Protein 5.9 g/dL (5.7-8.2)
[2022-11-15] MEDS: MIDODRINE HCL 10 MG TAB PO SCH ×3 (06:22→18:00)
[2022-11-15] MEDS: SODIUM BICARBONATE 650 MG TAB PO SCH ×4 (06:23→22:30)
[2022-11-15] MEDS: LEVOTHYROXINE SODIUM 112 MCG TAB PO SCH (06:24)
[2022-11-15] MEDS: OCTREOTIDE ACETATE 100 MCG/ML VL SUBCUT SCH ×3 (06:24→22:32)
[2022-11-15] MEDS ORDERED: POTASSIUM CHL 20 Meq TABLET PO ONE (09:30)
[2022-11-15] MEDS: LACTULOSE 20Gm/30ML SOLN PO SCH (10:00)
[2022-11-15] MEDS ORDERED: ALBUMIN 25% 50 ML IV ONE (10:00)
[2022-11-15] MEDS: ALBUMIN 25% 50 ML IV SCH (10:59)
[2022-11-15] MEDS: PANTOPRAZOLE 40 MG TAB PO SCH (10:59)
[2022-11-15] MEDS: DOCUSATE SOD 100 MG CAP PO SCH ×2 (11:00→22:31)
[2022-11-15] MEDS: MAGNESIUM OXIDE 400 MG TAB PO SCH ×2 (11:00→22:31)
[2022-11-15] MEDS: cefTRIAXone 1GM/50ML D5W 50 ML IV SCH (11:01)
[2022-11-15] MEDS: ENSURE CLEAR Mixed Berry 8oz Carton PO SCH ×3 (11:01→18:00)
[2022-11-15] MEDS: SODIUM CHLOR 0.9% PF (SALINE LOCK) 10ML VIAL/SYR IV SCH ×2 (11:02→23:05)
[2022-11-15] MEDS: NOREPINEPHRINE 8 MG/250ML KIT 250 ML IV SCH (13:17)
[2022-11-15] MEDS: NYSTATIN TOPICAL POWDER 15GM TOP SCH ×2 (18:02→22:34)
[2022-11-16] VITALS (97 sets, daily range): BP systolic 70–110; BP diastolic 39–67; PULSE 45–153; RESP 11–63; TEMP 98.4–99.9; O2SAT 72–99
[2022-11-16 04:33] LABS: Alanine Aminotransferase 10 U/L (7-40); Albumin 3.1 g/dL (3.2-4.8); Alkaline Phosphatase 56 U/L (46-116); Anion Gap 6.6 (5-15); Aspartate Aminotransferase 22 U/L (13-40); BUN/Creatinine Ratio 26.6 (10.0-20.0); Bilirubin, Total 3.3 mg/dL (0.2-1.0); Blood Urea Nitrogen 37 mg/dL (9-23); Calcium 8.3 mg/dL (8.7-10.4); Carbon Dioxide 35.4 mmol/L (20-30); Chloride 94 mmol/L (98-107); Glucose 171 mg/dL (74-106); Potassium 3.2 mmol/L (3.5-5.1); Sodium 136 mmol/L (136-145); Total Protein 5.6 g/dL (5.7-8.2)
[2022-11-16] MEDS: SODIUM BICARBONATE 650 MG TAB PO SCH ×4 (05:41→21:12)
[2022-11-16] MEDS: MIDODRINE HCL 10 MG TAB PO SCH ×3 (05:41→18:51)
[2022-11-16] MEDS: NOREPINEPHRINE 8 MG/250ML KIT 250 ML IV SCH (05:41)
[2022-11-16] MEDS: OCTREOTIDE ACETATE 100 MCG/ML VL SUBCUT SCH ×3 (05:42→21:11)
[2022-11-16] MEDS: LEVOTHYROXINE SODIUM 112 MCG TAB PO SCH (06:43)
[2022-11-16] MEDS: LACTULOSE 20Gm/30ML SOLN PO SCH (09:55)
[2022-11-16] MEDS: cefTRIAXone 1GM/50ML D5W 50 ML IV SCH (09:55)
[2022-11-16] MEDS: PANTOPRAZOLE 40 MG TAB PO SCH (09:55)
[2022-11-16] MEDS: ENSURE CLEAR Mixed Berry 8oz Carton PO SCH ×3 (09:55→18:52)
[2022-11-16] MEDS: MAGNESIUM OXIDE 400 MG TAB PO SCH ×2 (09:56→21:12)
[2022-11-16] MEDS: NYSTATIN TOPICAL POWDER 15GM TOP SCH ×2 (09:56→21:20)
[2022-11-16] MEDS: SODIUM CHLOR 0.9% PF (SALINE LOCK) 10ML VIAL/SYR IV SCH ×2 (09:56→21:13)
[2022-11-16] MEDS: DOCUSATE SOD 100 MG CAP PO SCH ×2 (09:56→21:13)
[2022-11-16] MEDS ORDERED: POTASSIUM CHL 20 Meq TABLET PO ONE ×2 (12:15→14:15)
[2022-11-16] MEDS: oxyCODONE HCL 5MG TAB PO PRN (21:12)
[2022-11-16] MEDS ORDERED: diphenhdrAMINE HCL 25 MG CAP PO ONE (23:30)
[2022-11-17] VITALS (105 sets, daily range): BP systolic 73–152; BP diastolic 40–129; PULSE 48–118; RESP 12–22; TEMP 98.6–99.8; O2SAT 81–100
[2022-11-17] MEDS: NOREPINEPHRINE 8 MG/250ML KIT 250 ML IV SCH ×2 (01:18→17:02)
[2022-11-17 04:30] LABS: Alanine Aminotransferase 12 U/L (7-40); Albumin 2.9 g/dL (3.2-4.8); Alkaline Phosphatase 64 U/L (46-116); Anion Gap 4.3 (5-15); Aspartate Aminotransferase 26 U/L (13-40); Blood Urea Nitrogen 40 mg/dL (9-23); Calcium 8.2 mg/dL (8.7-10.4); Carbon Dioxide 34.7 mmol/L (20-30); Chloride 94 mmol/L (98-107); Glucose 162 mg/dL (74-106); Potassium 4.1 mmol/L (3.5-5.1); Sodium 133 mmol/L (136-145)
[2022-11-17 04:31] LABS: Bilirubin, Total 3.2 mg/dL (0.2-1.0); Total Protein 5.6 g/dL (5.7-8.2)
[2022-11-17] MEDS: SODIUM BICARBONATE 650 MG TAB PO SCH ×4 (06:14→21:50)
[2022-11-17] MEDS: MIDODRINE HCL 10 MG TAB PO SCH ×3 (06:14→18:05)
[2022-11-17] MEDS: OCTREOTIDE ACETATE 100 MCG/ML VL SUBCUT SCH ×3 (06:14→21:52)
[2022-11-17] MEDS: LEVOTHYROXINE SODIUM 112 MCG TAB PO SCH (06:14)
[2022-11-17] MEDS: ENSURE CLEAR Mixed Berry 8oz Carton PO SCH ×2 (08:00→12:45)
[2022-11-17] MEDS: cefTRIAXone 1GM/50ML D5W 50 ML IV SCH (09:41)
[2022-11-17] MEDS: LACTULOSE 20Gm/30ML SOLN PO SCH (09:52)
[2022-11-17] MEDS: SODIUM CHLOR 0.9% PF (SALINE LOCK) 10ML VIAL/SYR IV SCH ×2 (09:53→21:54)
[2022-11-17] MEDS: PANTOPRAZOLE 40 MG TAB PO SCH (09:53)
[2022-11-17] MEDS: MAGNESIUM OXIDE 400 MG TAB PO SCH ×2 (09:53→21:50)
[2022-11-17] MEDS: NYSTATIN TOPICAL POWDER 15GM TOP SCH ×2 (09:54→21:54)
[2022-11-17] MEDS: DOCUSATE SOD 100 MG CAP PO SCH ×2 (09:57→21:51)
[2022-11-17] MEDS ORDERED: BUMETANIDE 2.5mg/10ml (0.25 mg/ml) INJ IV SCH (10:00)
[2022-11-17] MEDS: ERGOCALCIFEROL 50,000 UNIT(1.25MG) CAP PO SCH (12:16)
[2022-11-17] MEDS ORDERED: SODIUM CHLORIDE 0.9% 1,000 ML IV ONE (14:30)
[2022-11-17] MEDS: traMADol HCL 50 MG TAB PO PRN (16:59)
[2022-11-17] MEDS ORDERED: phytonadione 10 MG in SODIUM CHL 0.9% 50 ML IV ONE (21:15)
[2022-11-17] MEDS: KETOCONAZOLE 2 % TOPICAL CREAM 15GM TOP SCH (21:51)
[2022-11-17] MEDS: methylPREDNISolone SOD SUCC 40 MG/ML VL IV SCH (21:52)
[2022-11-18] VITALS (96 sets, daily range): BP systolic 80–116; BP diastolic 45–72; PULSE 43–200; RESP 11–23; TEMP 97.5–99.2; O2SAT 84–100
[2022-11-18 04:50] LABS: Basophils # (auto) 0 10 ^3/uL (0-0.2); Hemoglobin 12.5 g/dL (12.2-16.2); Red Cell Distribution Width 17.3 % (11.8-14.3)
[2022-11-18 04:53] LABS: Basophils % (auto) 0.2 % (0.0-2.0); Eosinophils # (auto) 0 10 ^3/uL (0-0.8); Eosinophils % (auto) 0.6 % (0.0-7.0); Hematocrit 36.8 % (36.0-46.0); Lymphocytes # (auto) 0.7 10 ^3/uL (0.4-5.4); Lymphocytes % (auto) 9.1 % (10.0-50.0); Mean Corpuscular Hemoglobin 36.2 pg (28.0-32.0); Mean Corpuscular Hgb Conc. 33.9 g/dL (32.0-36.0); Monocytes # (auto) 0.3 10 ^3/uL (0-1.3); Monocytes % (auto) 4.4 % (0.0-12.0); Neutrophils # (auto) 6.4 10 ^3/uL (1.6-8.6); Neutrophils % (auto) 85.7 % (37.0-80.0); Nucleated Red Blood Cells % 0.5 %; Red Blood Cells 3.44 10^6/uL (4.0-5.20); White Blood Cell 7.4 10^3/uL (4.4-10.8)
[2022-11-18 04:55] LABS: INR 1.8 (0.9-1.15); Prothrombin Time 18.2 sec (9.3-11.8)
[2022-11-18 04:58] LABS: Alanine Aminotransferase 13 U/L (7-40); Albumin 2.9 g/dL (3.2-4.8); Alkaline Phosphatase 69 U/L (46-116); Anion Gap 6.6 (5-15); Aspartate Aminotransferase 31 U/L (13-40); BUN/Creatinine Ratio 22.2 (10.0-20.0); Bilirubin, Total 3.3 mg/dL (0.2-1.0); Blood Urea Nitrogen 36 mg/dL (9-23); Carbon Dioxide 32.4 mmol/L (20-30); Chloride 91 mmol/L (98-107); Glucose 167 mg/dL (74-106); Potassium 4.3 mmol/L (3.5-5.1); Sodium 130 mmol/L (136-145); Total Protein 5.9 g/dL (5.7-8.2)
[2022-11-18] MEDS: MIDODRINE HCL 10 MG TAB PO SCH ×3 (06:11→18:37)
[2022-11-18] MEDS: OCTREOTIDE ACETATE 100 MCG/ML VL SUBCUT SCH ×3 (06:12→21:30)
[2022-11-18] MEDS: SODIUM BICARBONATE 650 MG TAB PO SCH ×4 (06:12→21:31)
[2022-11-18] MEDS: LEVOTHYROXINE SODIUM 112 MCG TAB PO SCH (06:12)
[2022-11-18] MEDS: DOCUSATE SOD 100 MG CAP PO SCH ×2 (10:00→21:31)
[2022-11-18] MEDS: LACTULOSE 20Gm/30ML SOLN PO SCH (10:50)
[2022-11-18] MEDS: ENSURE CLEAR Mixed Berry 8oz Carton PO SCH ×4 (10:50→18:37)
[2022-11-18] MEDS: methylPREDNISolone SOD SUCC 40 MG/ML VL IV SCH ×2 (10:51→21:31)
[2022-11-18] MEDS: MAGNESIUM OXIDE 400 MG TAB PO SCH ×2 (10:51→21:31)
[2022-11-18] MEDS: PANTOPRAZOLE 40 MG TAB PO SCH (10:51)
[2022-11-18] MEDS: cefTRIAXone 1GM/50ML D5W 50 ML IV SCH (10:51)
[2022-11-18] MEDS: SODIUM CHLOR 0.9% PF (SALINE LOCK) 10ML VIAL/SYR IV SCH ×2 (10:52→21:32)
[2022-11-18] MEDS: KETOCONAZOLE 2 % TOPICAL CREAM 15GM TOP SCH ×2 (12:32→21:34)
[2022-11-18] MEDS: NYSTATIN TOPICAL POWDER 15GM TOP SCH ×2 (12:32→21:34)
[2022-11-18] MEDS: SODIUM CHLORIDE 0.9% 1,000 ML IV SCH (16:40)
[2022-11-19] VITALS (99 sets, daily range): BP systolic 82–117; BP diastolic 15–79; PULSE 41–104; RESP 8–23; TEMP 97.6–98.2; O2SAT 82–100
[2022-11-19] MEDS: SODIUM CHLORIDE 0.9% 1,000 ML IV SCH (01:06)
[2022-11-19 02:17] LABS: Alanine Aminotransferase 12 U/L (7-40); Albumin 2.8 g/dL (3.2-4.8); Alkaline Phosphatase 64 U/L (46-116); Anion Gap 4.9 (5-15); Aspartate Aminotransferase 20 U/L (13-40); BUN/Creatinine Ratio 20.5 (10.0-20.0); Bilirubin, Total 2.1 mg/dL (0.2-1.0); Blood Urea Nitrogen 34 mg/dL (9-23); Calcium 8.1 mg/dL (8.7-10.4); Carbon Dioxide 30.1 mmol/L (20-30); Chloride 93 mmol/L (98-107); Glucose 154 mg/dL (74-106); Potassium 3.7 mmol/L (3.5-5.1); Sodium 128 mmol/L (136-145); Total Protein 5.7 g/dL (5.7-8.2)
[2022-11-19] MEDS: SODIUM BICARBONATE 650 MG TAB PO SCH ×4 (06:09→21:05)
[2022-11-19] MEDS: MIDODRINE HCL 10 MG TAB PO SCH ×3 (06:09→17:06)
[2022-11-19] MEDS: LEVOTHYROXINE SODIUM 112 MCG TAB PO SCH (06:09)
[2022-11-19] MEDS: OCTREOTIDE ACETATE 100 MCG/ML VL SUBCUT SCH ×3 (06:10→21:04)
[2022-11-19] MEDS: NOREPINEPHRINE 8 MG/250ML KIT 250 ML IV SCH (07:28)
[2022-11-19] MEDS: DOCUSATE SOD 100 MG CAP PO SCH ×2 (10:00→21:05)
[2022-11-19] MEDS: LACTULOSE 20Gm/30ML SOLN PO SCH (10:00)
[2022-11-19] MEDS: KETOCONAZOLE 2 % TOPICAL CREAM 15GM TOP SCH ×2 (10:38→21:06)
[2022-11-19] MEDS: NYSTATIN TOPICAL POWDER 15GM TOP SCH ×2 (10:38→21:05)
[2022-11-19] MEDS: cefTRIAXone 1GM/50ML D5W 50 ML IV SCH (10:41)
[2022-11-19] MEDS: methylPREDNISolone SOD SUCC 40 MG/ML VL IV SCH ×2 (10:41→21:04)
[2022-11-19] MEDS: ENSURE CLEAR Mixed Berry 8oz Carton PO SCH ×3 (10:41→18:18)
[2022-11-19] MEDS: SODIUM CHLOR 0.9% PF (SALINE LOCK) 10ML VIAL/SYR IV SCH ×2 (10:42→21:02)
[2022-11-19] MEDS: MAGNESIUM OXIDE 400 MG TAB PO SCH ×2 (10:42→21:05)
[2022-11-19] MEDS: PANTOPRAZOLE 40 MG TAB PO SCH (10:42)
[2022-11-20] VITALS (93 sets, daily range): BP systolic 78–130; BP diastolic 44–65; PULSE 40–126; RESP 11–21; TEMP 97.6–98.2; O2SAT 89–100
[2022-11-20 04:04] LABS: Eosinophils # (auto) 0 10 ^3/uL (0-0.8); Hemoglobin 12.2 g/dL (12.2-16.2); Monocytes # (auto) 0.6 10 ^3/uL (0-1.3)
[2022-11-20] MEDS: OCTREOTIDE ACETATE 100 MCG/ML VL SUBCUT SCH ×3 (05:05→21:06)
[2022-11-20] MEDS: MIDODRINE HCL 10 MG TAB PO SCH ×2 (05:05→17:03)
[2022-11-20] MEDS: SODIUM BICARBONATE 650 MG TAB PO SCH ×3 (05:05→21:07)
[2022-11-20 05:32] LABS: Alanine Aminotransferase 12 U/L (7-40); Albumin 2.7 g/dL (3.2-4.8); Alkaline Phosphatase 71 U/L (46-116); Aspartate Aminotransferase 31 U/L (13-40); BUN/Creatinine Ratio 23.3 (10.0-20.0); Blood Urea Nitrogen 41 mg/dL (9-23); Calcium 8.4 mg/dL (8.5-10.1); Chloride 91 mmol/L (98-107); Glucose 131 mg/dL (74-106); Potassium 4.3 mmol/L (3.5-5.1); Sodium 129 mmol/L (136-145)
[2022-11-20 05:33] LABS: Bilirubin, Total 1.6 mg/dL (0.2-1.0); Total Protein 5.8 g/dL (5.7-8.2)
[2022-11-20] MEDS: LEVOTHYROXINE SODIUM 112 MCG TAB PO SCH (05:49)
[2022-11-20 08:31] LABS: Mean Corpuscular Hemoglobin 35.5 pg (28.0-32.0); Monocytes % (auto) 4.6 % (0.0-12.0); Red Blood Cells 3.45 10^6/uL (4.0-5.20); White Blood Cell 13.9 10^3/uL (4.4-10.8)
[2022-11-20 08:32] LABS: Basophils # (auto) 0.1 10 ^3/uL (0-0.2); Basophils % (auto) 0.7 % (0.0-2.0); Hematocrit 36.8 % (36.0-46.0); Lymphocytes # (auto) 1.1 10 ^3/uL (0.4-5.4); Lymphocytes % (auto) 8.1 % (10.0-50.0); Mean Corpuscular Hgb Conc. 33.3 g/dL (32.0-36.0); Mean Corpuscular Volume 106.6 fL (80.0-100.0); Neutrophils % (auto) 86.6 % (37.0-80.0); Nucleated Red Blood Cells % 0.1 %; Red Cell Distribution Width 17.5 % (11.8-14.3)
[2022-11-20] MEDS: LACTULOSE 20Gm/30ML SOLN PO SCH (09:38)
[2022-11-20] MEDS: methylPREDNISolone SOD SUCC 40 MG/ML VL IV SCH ×2 (09:39→21:05)
[2022-11-20] MEDS: MAGNESIUM OXIDE 400 MG TAB PO SCH ×2 (09:39→21:07)
[2022-11-20] MEDS: PANTOPRAZOLE 40 MG TAB PO SCH (09:40)
[2022-11-20] MEDS: NYSTATIN TOPICAL POWDER 15GM TOP SCH ×2 (09:40→21:08)
[2022-11-20] MEDS: cefTRIAXone 1GM/50ML D5W 50 ML IV SCH (09:40)
[2022-11-20] MEDS: SODIUM CHLOR 0.9% PF (SALINE LOCK) 10ML VIAL/SYR IV SCH ×2 (09:40→21:08)
[2022-11-20] MEDS: KETOCONAZOLE 2 % TOPICAL CREAM 15GM TOP SCH ×2 (09:41→21:08)
[2022-11-20] MEDS: ENSURE CLEAR Mixed Berry 8oz Carton PO SCH ×2 (09:43→17:04)
[2022-11-20] MEDS: DOCUSATE SOD 100 MG CAP PO SCH ×2 (09:43→21:07)
[2022-11-20] MEDS: NOREPINEPHRINE 8 MG/250ML KIT 250 ML IV SCH (11:04)
[2022-11-20] MEDS ORDERED: FUROSEMIDE 20 MG/2 ML VIAL IV ONE (11:45)
[2022-11-20] MEDS: traMADol HCL 50 MG TAB PO PRN (18:00)
[2022-11-20] MEDS: ONDANSETRON HCL 4 MG/2 ML VIAL IV PRN (21:06)
[2022-11-21] VITALS (84 sets, daily range): BP systolic 76–127; BP diastolic 41–68; PULSE 41–141; RESP 10–23; TEMP 97.6–98.9; O2SAT 89–100
[2022-11-21 04:29] LABS: Basophils # (auto) 0 10 ^3/uL (0-0.2); Eosinophils # (auto) 0 10 ^3/uL (0-0.8); Hemoglobin 11.7 g/dL (12.2-16.2); Mean Corpuscular Hgb Conc. 33.8 g/dL (32.0-36.0); Red Cell Distribution Width 17.3 % (11.8-14.3)
[2022-11-21 04:32] LABS: Basophils % (auto) 0.2 % (0.0-2.0); Hematocrit 34.6 % (36.0-46.0); Lymphocytes # (auto) 0.8 10 ^3/uL (0.4-5.4); Lymphocytes % (auto) 8.5 % (10.0-50.0); Mean Corpuscular Volume 106.3 fL (80.0-100.0); Monocytes # (auto) 0.4 10 ^3/uL (0-1.3); Monocytes % (auto) 4.9 % (0.0-12.0); Neutrophils % (auto) 86.4 % (37.0-80.0); Nucleated Red Blood Cells % 0.1 %; Red Blood Cells 3.26 10^6/uL (4.0-5.20); White Blood Cell 9.2 10^3/uL (4.4-10.8)
[2022-11-21 04:42] LABS: Chloride 91 mmol/L (98-107); Potassium 4.3 mmol/L (3.5-5.1); Sodium 128 mmol/L (136-145)
[2022-11-21 04:43] LABS: Anion Gap 7.1 (5-15); Carbon Dioxide 29.9 mmol/L (20-30)
[2022-11-21 04:44] LABS: Calcium 8.3 mg/dL (8.7-10.4)
[2022-11-21 04:49] LABS: Glucose 119 mg/dL (74-106); Magnesium 2.3 mg/dL (1.6-2.6)
[2022-11-21] MEDS: SODIUM BICARBONATE 650 MG TAB PO SCH ×4 (05:13→21:39)
[2022-11-21] MEDS: MIDODRINE HCL 10 MG TAB PO SCH ×3 (05:13→18:07)
[2022-11-21] MEDS: OCTREOTIDE ACETATE 100 MCG/ML VL SUBCUT SCH ×3 (05:13→21:38)
[2022-11-21 05:23] LABS: Blood Urea Nitrogen 53 mg/dL (9-23)
[2022-11-21] MEDS: LEVOTHYROXINE SODIUM 112 MCG TAB PO SCH (06:29)
[2022-11-21] MEDS: cefTRIAXone 1GM/50ML D5W 50 ML IV SCH (08:40)
[2022-11-21] MEDS: ENSURE CLEAR Mixed Berry 8oz Carton PO SCH ×3 (08:40→18:00)
[2022-11-21] MEDS ORDERED: ALBUMIN 25% 100 ML IV ONE (09:30)
[2022-11-21] MEDS: DOCUSATE SOD 100 MG CAP PO SCH ×2 (10:00→21:38)
[2022-11-21] MEDS: ONDANSETRON HCL 4 MG/2 ML VIAL IV PRN (10:14)
[2022-11-21] MEDS: SODIUM CHLOR 0.9% PF (SALINE LOCK) 10ML VIAL/SYR IV SCH ×2 (10:21→21:37)
[2022-11-21] MEDS: methylPREDNISolone SOD SUCC 40 MG/ML VL IV SCH ×2 (10:22→21:38)
[2022-11-21] MEDS: LACTULOSE 20Gm/30ML SOLN PO SCH (10:24)
[2022-11-21] MEDS: PANTOPRAZOLE 40 MG TAB PO SCH (10:24)
[2022-11-21] MEDS: MAGNESIUM OXIDE 400 MG TAB PO SCH ×2 (10:25→21:38)
[2022-11-21] MEDS: NYSTATIN TOPICAL POWDER 15GM TOP SCH ×2 (10:28→21:39)
[2022-11-21] MEDS: KETOCONAZOLE 2 % TOPICAL CREAM 15GM TOP SCH ×2 (10:28→21:39)
[2022-11-21] MEDS: NOREPINEPHRINE 8 MG/250ML KIT 250 ML IV SCH (11:26)
[2022-11-21 13:09] LABS: Macrocytosis Moderate
[2022-11-21 13:10] LABS: Platelet Estimate Decreased
[2022-11-22] VITALS (64 sets, daily range): BP systolic 88–126; BP diastolic 49–91; PULSE 43–70; RESP 10–19; TEMP 97.6–97.9; O2SAT 85–100
[2022-11-22 05:13] LABS: Basophils # (auto) 0 10 ^3/uL (0-0.2); Eosinophils # (auto) 0 10 ^3/uL (0-0.8); Lymphocytes # (auto) 0.8 10 ^3/uL (0.4-5.4); Mean Corpuscular Volume 106.3 fL (80.0-100.0); Nucleated Red Blood Cells % 0.1 %; Red Cell Distribution Width 17.3 % (11.8-14.3)
[2022-11-22 05:15] LABS: Hematocrit 35.5 % (36.0-46.0); Lymphocytes % (auto) 7.5 % (10.0-50.0); Mean Corpuscular Hemoglobin 35.9 pg (28.0-32.0); Mean Corpuscular Hgb Conc. 33.8 g/dL (32.0-36.0); Monocytes # (auto) 0.4 10 ^3/uL (0-1.3); Monocytes % (auto) 3.9 % (0.0-12.0); Neutrophils # (auto) 9.5 10 ^3/uL (1.6-8.6); Neutrophils % (auto) 88.6 % (37.0-80.0); Red Blood Cells 3.34 10^6/uL (4.0-5.20); White Blood Cell 10.8 10^3/uL (4.4-10.8)
[2022-11-22 05:31] LABS: Alanine Aminotransferase 12 U/L (7-40); Albumin 2.9 g/dL (3.2-4.8); Alkaline Phosphatase 63 U/L (46-116); Anion Gap 8.4 (5-15); Aspartate Aminotransferase 23 U/L (13-40); BUN/Creatinine Ratio 29.4 (10.0-20.0); Calcium 8.6 mg/dL (8.7-10.4); Carbon Dioxide 29.6 mmol/L (20-30); Chloride 90 mmol/L (98-107); Glucose 114 mg/dL (74-106); Magnesium 2.5 mg/dL (1.6-2.6); Potassium 4.4 mmol/L (3.5-5.1); Sodium 128 mmol/L (136-145)
[2022-11-22 05:32] LABS: Bilirubin, Total 1.8 mg/dL (0.2-1.0); Total Protein 5.7 g/dL (5.7-8.2)
[2022-11-22] MEDS: MIDODRINE HCL 10 MG TAB PO SCH ×3 (06:09→16:51)
[2022-11-22] MEDS: SODIUM BICARBONATE 650 MG TAB PO SCH ×4 (06:09→21:09)
[2022-11-22] MEDS: OCTREOTIDE ACETATE 100 MCG/ML VL SUBCUT SCH ×3 (06:09→21:08)
[2022-11-22] MEDS: LEVOTHYROXINE SODIUM 112 MCG TAB PO SCH (06:10)
[2022-11-22 06:13] LABS: Blood Urea Nitrogen 64 mg/dL (9-23)
[2022-11-22] MEDS: SODIUM CHLOR 0.9% PF (SALINE LOCK) 10ML VIAL/SYR IV SCH ×2 (07:12→21:08)
[2022-11-22] MEDS: NOREPINEPHRINE 8 MG/250ML KIT 250 ML IV SCH (07:14)
[2022-11-22] MEDS: ENSURE CLEAR Mixed Berry 8oz Carton PO SCH ×3 (08:00→16:35)
[2022-11-22] MEDS: methylPREDNISolone SOD SUCC 40 MG/ML VL IV SCH (08:41)
[2022-11-22] MEDS: MAGNESIUM OXIDE 400 MG TAB PO SCH ×2 (08:41→21:07)
[2022-11-22] MEDS: DOCUSATE SOD 100 MG CAP PO SCH ×2 (08:41→21:09)
[2022-11-22] MEDS: LACTULOSE 20Gm/30ML SOLN PO SCH (08:41)
[2022-11-22] MEDS: PANTOPRAZOLE 40 MG TAB PO SCH (08:41)
[2022-11-22] MEDS: cefTRIAXone 1GM/50ML D5W 50 ML IV SCH (08:41)
[2022-11-22] MEDS: NYSTATIN TOPICAL POWDER 15GM TOP SCH ×2 (08:42→21:09)
[2022-11-22] MEDS: KETOCONAZOLE 2 % TOPICAL CREAM 15GM TOP SCH ×2 (08:42→21:09)
[2022-11-22 09:25] LABS: Macrocytosis Moderate
[2022-11-22 09:28] LABS: Platelet Estimate Decreased
[2022-11-22] MEDS: traMADol HCL 50 MG TAB PO PRN (23:05)
[2022-11-23] VITALS (50 sets, daily range): BP systolic 100–125; BP diastolic 54–72; PULSE 41–57; RESP 9–24; TEMP 97.5–98; O2SAT 91–100
[2022-11-23 05:17] LABS: Basophils # (auto) 0 10 ^3/uL (0-0.2); Eosinophils # (auto) 0 10 ^3/uL (0-0.8); Monocytes # (auto) 0.6 10 ^3/uL (0-1.3); Neutrophils # (auto) 11.4 10 ^3/uL (1.6-8.6); Nucleated Red Blood Cells % 0.1 %; Red Blood Cells 3.43 10^6/uL (4.0-5.20)
[2022-11-23 05:19] LABS: Basophils % (auto) 0.1 % (0.0-2.0); Eosinophils % (auto) 0.3 % (0.0-7.0); Hematocrit 36.3 % (36.0-46.0); Hemoglobin 12.3 g/dL (12.2-16.2); Lymphocytes # (auto) 0.8 10 ^3/uL (0.4-5.4); Lymphocytes % (auto) 6.2 % (10.0-50.0); Mean Corpuscular Hemoglobin 35.8 pg (28.0-32.0); Mean Corpuscular Hgb Conc. 33.9 g/dL (32.0-36.0); Mean Corpuscular Volume 105.9 fL (80.0-100.0); Neutrophils % (auto) 88.4 % (37.0-80.0); Red Cell Distribution Width 17.1 % (11.8-14.3); White Blood Cell 12.9 10^3/uL (4.4-10.8)
[2022-11-23 05:26] LABS: Alanine Aminotransferase 12 U/L (7-40); Albumin 2.9 g/dL (3.2-4.8); Alkaline Phosphatase 66 U/L (46-116); Anion Gap 7.3 (5-15); Aspartate Aminotransferase 25 U/L (13-40); BUN/Creatinine Ratio 30.7 (10.0-20.0); Bilirubin, Total 1.7 mg/dL (0.2-1.0); Blood Urea Nitrogen 63 mg/dL (9-23); Calcium 8.6 mg/dL (8.7-10.4); Carbon Dioxide 29.7 mmol/L (20-30); Chloride 90 mmol/L (98-107); Glucose 116 mg/dL (74-106); Potassium 4.4 mmol/L (3.5-5.1); Sodium 127 mmol/L (136-145); Total Protein 5.7 g/dL (5.7-8.2)
[2022-11-23 05:34] LABS: INR 1.97 (0.9-1.15); Partial Thromboplastin Time 33.9 SEC (24.5-34.5); Prothrombin Time 19.8 sec (9.3-11.8)
[2022-11-23] MEDS: SODIUM BICARBONATE 650 MG TAB PO SCH ×4 (05:44→21:43)
[2022-11-23] MEDS: MIDODRINE HCL 10 MG TAB PO SCH ×3 (05:44→17:27)
[2022-11-23] MEDS: LEVOTHYROXINE SODIUM 112 MCG TAB PO SCH (05:44)
[2022-11-23] MEDS: OCTREOTIDE ACETATE 100 MCG/ML VL SUBCUT SCH ×3 (05:45→21:43)
[2022-11-23] MEDS ORDERED: KETOROLAC TROMETH 30 MG/ML 1ML VIAL IV ONE (06:15)
[2022-11-23] MEDS: ENSURE CLEAR Mixed Berry 8oz Carton PO SCH ×4 (08:38→19:00)
[2022-11-23] MEDS: LACTULOSE 20Gm/30ML SOLN PO SCH (08:39)
[2022-11-23] MEDS: MAGNESIUM OXIDE 400 MG TAB PO SCH (08:39)
[2022-11-23] MEDS: methylPREDNISolone SOD SUCC 40 MG/ML VL IV SCH (08:39)
[2022-11-23] MEDS: DOCUSATE SOD 100 MG CAP PO SCH ×2 (08:39→21:42)
[2022-11-23] MEDS: PANTOPRAZOLE 40 MG TAB PO SCH (08:40)
[2022-11-23] MEDS: cefTRIAXone 1GM/50ML D5W 50 ML IV SCH (08:40)
[2022-11-23] MEDS: SODIUM CHLOR 0.9% PF (SALINE LOCK) 10ML VIAL/SYR IV SCH ×2 (08:40→22:01)
[2022-11-23] MEDS: NYSTATIN TOPICAL POWDER 15GM TOP SCH ×2 (10:03→21:43)
[2022-11-23] MEDS: KETOCONAZOLE 2 % TOPICAL CREAM 15GM TOP SCH ×2 (10:03→21:43)
[2022-11-23] MEDS ORDERED: traMADol HCL 50 MG TAB PO PRN (10:15)
[2022-11-23] MEDS: BUMETANIDE 2.5mg/10ml (0.25 mg/ml) INJ IV SCH (11:32)
[2022-11-23] MEDS ORDERED: BUMETANIDE 2.5mg/10ml (0.25 mg/ml) INJ IV SCH (18:00)
[2022-11-24] VITALS (34 sets, daily range): BP systolic 91–103; BP diastolic 51–56; PULSE 42–53; RESP 10–15; TEMP 97.4–97.8; O2SAT 89–99
[2022-11-24 05:17] LABS: Basophils # (auto) 0 10 ^3/uL (0-0.2); Eosinophils # (auto) 0 10 ^3/uL (0-0.8); Lymphocytes # (auto) 0.8 10 ^3/uL (0.4-5.4); Neutrophils # (auto) 11.9 10 ^3/uL (1.6-8.6); Nucleated Red Blood Cells % 0.1 %
[2022-11-24 05:20] LABS: Basophils % (auto) 0.1 % (0.0-2.0); Hematocrit 37.1 % (36.0-46.0); Hemoglobin 12.5 g/dL (12.2-16.2); Mean Corpuscular Hemoglobin 35.8 pg (28.0-32.0); Mean Corpuscular Hgb Conc. 33.7 g/dL (32.0-36.0); Monocytes # (auto) 0.6 10 ^3/uL (0-1.3); Monocytes % (auto) 4.5 % (0.0-12.0); Neutrophils % (auto) 89.4 % (37.0-80.0); Red Cell Distribution Width 17.7 % (11.8-14.3); White Blood Cell 13.3 10^3/uL (4.4-10.8)
[2022-11-24 05:30] LABS: Alanine Aminotransferase 11 U/L (7-40); Albumin 2.7 g/dL (3.2-4.8); Alkaline Phosphatase 63 U/L (46-116); Anion Gap 7.6 (5-15); Aspartate Aminotransferase 27 U/L (13-40); BUN/Creatinine Ratio 37.6 (10.0-20.0); Bilirubin, Total 1.8 mg/dL (0.2-1.0); Blood Urea Nitrogen 71 mg/dL (9-23); Calcium 8.6 mg/dL (8.5-10.1); Carbon Dioxide 31.4 mmol/L (20-30); Chloride 91 mmol/L (98-107); Glucose 102 mg/dL (74-106); Magnesium 2.7 mg/dL (1.6-2.6); Potassium 4.5 mmol/L (3.5-5.1); Sodium 130 mmol/L (136-145); Total Protein 5.5 g/dL (5.7-8.2)
[2022-11-24] MEDS: SODIUM BICARBONATE 650 MG TAB PO SCH ×2 (06:00→11:49)
[2022-11-24] MEDS: OCTREOTIDE ACETATE 100 MCG/ML VL SUBCUT SCH (06:37)
[2022-11-24] MEDS: MIDODRINE HCL 10 MG TAB PO SCH ×2 (06:38→11:49)
[2022-11-24] MEDS: LEVOTHYROXINE SODIUM 112 MCG TAB PO SCH (06:38)
[2022-11-24] MEDS: LACTULOSE 20Gm/30ML SOLN PO SCH (08:21)
[2022-11-24] MEDS: BUMETANIDE 2.5mg/10ml (0.25 mg/ml) INJ IV SCH (08:21)
[2022-11-24] MEDS: methylPREDNISolone SOD SUCC 40 MG/ML VL IV SCH (08:21)
[2022-11-24] MEDS: PANTOPRAZOLE 40 MG TAB PO SCH (08:21)
[2022-11-24] MEDS: cefTRIAXone 1GM/50ML D5W 50 ML IV SCH (08:22)
[2022-11-24] MEDS: DOCUSATE SOD 100 MG CAP PO SCH (08:23)
[2022-11-24] MEDS: SODIUM CHLOR 0.9% PF (SALINE LOCK) 10ML VIAL/SYR IV SCH (08:24)
[2022-11-24] MEDS: ENSURE CLEAR Mixed Berry 8oz Carton PO SCH (09:56)
[2022-11-24] MEDS: KETOCONAZOLE 2 % TOPICAL CREAM 15GM TOP SCH (09:56)
[2022-11-24] MEDS: NYSTATIN TOPICAL POWDER 15GM TOP SCH (09:56)
[2022-11-24] MEDS ORDERED: CHOL1CAP47 PO (10:50)
[2022-11-24] MEDS ORDERED: LACT10SO3 PO (10:50)
[2022-11-24] MEDS ORDERED: MIDO10TA10 PO (10:50)
[2022-11-24] MEDS: ERGOCALCIFEROL 50,000 UNIT(1.25MG) CAP PO SCH (11:15)
== END 2022-11-24 12:16 | disposition home or self-care (01) | DRG 391 ==
LOC: ER 18:03 → OVERFLOW 11-09 04:16 → ICU WEST 11-10 05:30 → DOU IN ICU 11-22 00:39
PROVIDERS: ADMIT Internal Medicine; ATTEND Internal Medicine Geriatric Medicine
PROC: 05HC33Z Insertion of Infusion Device into Left Basilic Vein, Percutaneous Approach (ICD-10-PCS; 2022-11-09)
PROC: 0W9G3ZZ Drainage of Peritoneal Cavity, Percutaneous Approach (ICD-10-PCS; 2022-11-09)
PROC: B54NZZA Ultrasonography of Left Upper Extremity Veins, Guidance (ICD-10-PCS; 2022-11-09)
PROC: 02HV33Z Insertion of Infusion Device into Superior Vena Cava, Percutaneous Approach (ICD-10-PCS; 2022-11-12)
PROC: B548ZZA Ultrasonography of Superior Vena Cava, Guidance (ICD-10-PCS; 2022-11-12)
PROC: 0W9G3ZZ Drainage of Peritoneal Cavity, Percutaneous Approach (ICD-10-PCS; principal; 2022-11-23)
DX: K57.92 Diverticulitis of intestine, part unspecified, without perforation or abscess without bleeding (principal); K72.00 Acute and subacute hepatic failure without coma; K76.7 Hepatorenal syndrome; R57.9 Shock, unspecified; E87.29 Other acidosis; Z66 Do not resuscitate; Z20.822 Contact with and (suspected) exposure to COVID-19; N17.9 Acute kidney failure, unspecified; R18.8 Other ascites; K76.6 Portal hypertension; D68.9 Coagulation defect, unspecified; E87.1 Hypo-osmolality and hyponatremia; I13.0 Hypertensive heart and chronic kidney disease with heart failure and stage 1 through stage 4 chronic kidney disease, or unspecified chronic kidney disease; I50.30 Unspecified diastolic (congestive) heart failure; N18.9 Chronic kidney disease, unspecified; K74.60 Unspecified cirrhosis of liver; E87.5 Hyperkalemia; E66.9 Obesity, unspecified; D75.89 Other specified diseases of blood and blood-forming organs; D69.6 Thrombocytopenia, unspecified; E87.6 Hypokalemia; E87.70 Fluid overload, unspecified; E87.8 Other disorders of electrolyte and fluid balance, not elsewhere classified; E88.09 Other disorders of plasma-protein metabolism, not elsewhere classified; K59.00 Constipation, unspecified; K75.4 Autoimmune hepatitis; E55.9 Vitamin D deficiency, unspecified; E03.9 Hypothyroidism, unspecified; E78.5 Hyperlipidemia, unspecified; Z68.31 Body mass index [BMI] 31.0-31.9, adult; Z79.899 Other long term (current) drug therapy; Z80.0 Family history of malignant neoplasm of digestive organs
CPT/HCPCS: 36415; 36569; 71045; 74176; 76705; 76775; 76942; 80048; 80053; 81001; 82140; 82306; 82570; 82607; 82962; 83036; 83690; 83735; 83880; 83970; 83986; 84100; 84156; 84300; 84443; 85025; 85610; 85730; 87081; 87205; 87426; 89051; 93005; 93306; 94640; 97116; 97163; 97530; 99291; G0378; J0696; J1815; J1885; J2405; J3430; J3480; P9047

== ENCOUNTER 2022-12-06 11:49 | Emergency (ER) | payer OTHER ==
[~2022-12-06] VITALS: Ht 152.4 cm; Wt 63.0 kg
[~2022-12-06 11:49] MED LIST changes: +CHOL1CAP47 PO; +LACT10SO3 PO; -LEVO750T8 PO; -LISI-283 PO; -METR500T PO; +MIDO10TA10 PO
[2022-12-06 12:45] VITALS: TEMP 98.9
[2022-12-06 12:47] VITALS: PULSE 69; O2SAT 99
[2022-12-06 14:25] LABS: INR 1.61 (0.9-1.15); Prothrombin Time 16.4 sec (9.3-11.8)
[2022-12-06 14:45] LABS: Alanine Aminotransferase 15 U/L (7-40); Albumin 3.4 g/dL (3.2-4.8); Alkaline Phosphatase 100 U/L (46-116); Anion Gap 7 (5-15); Aspartate Aminotransferase 31 U/L (13-40); BUN/Creatinine Ratio 51.3 (10.0-20.0); Bilirubin, Total 6.4 mg/dL (0.2-1.0); Blood Urea Nitrogen 60 mg/dL (9-23); Calcium 8.5 mg/dL (8.7-10.4); Carbon Dioxide 31 mmol/L (20-30); Chloride 104 mmol/L (98-107); Eosinophils # (auto) 0.1 10 ^3/uL (0-0.8); Glucose 95 mg/dL (74-106); Hemoglobin 11.1 g/dL (12.2-16.2); Lipase 115 U/L (12-53); Red Cell Distribution Width 17.5 % (11.8-14.3); Sodium 142 mmol/L (136-145); Total Protein 6.1 g/dL (5.7-8.2)
[2022-12-06 14:46] LABS: Basophils # (auto) 0 10 ^3/uL (0-0.2); Basophils % (auto) 0.5 % (0.0-2.0); Eosinophils % (auto) 1.1 % (0.0-7.0); Hematocrit 33.3 % (36.0-46.0); Lymphocytes # (auto) 1.1 10 ^3/uL (0.4-5.4); Lymphocytes % (auto) 15.2 % (10.0-50.0); Mean Corpuscular Hemoglobin 37.1 pg (28.0-32.0); Mean Corpuscular Hgb Conc. 33.5 g/dL (32.0-36.0); Monocytes # (auto) 0.5 10 ^3/uL (0-1.3); Monocytes % (auto) 6.4 % (0.0-12.0); Neutrophils # (auto) 5.7 10 ^3/uL (1.6-8.6); Neutrophils % (auto) 76.8 % (37.0-80.0); Nucleated Red Blood Cells % 0.3 %; White Blood Cell 7.4 10^3/uL (4.4-10.8)
[2022-12-06 14:59] LABS: Potassium 2.9 mmol/L (3.5-5.1)
[2022-12-06] MEDS ORDERED: POTASSIUM CHL 20MEQ/100ML 100 ML IV ONE (15:30)
[2022-12-06] MEDS ORDERED: POTASSIUM EFFERVESENT TAB 25 MEQ PO ONE (15:30)
[2022-12-06] MEDS ORDERED: POTA10TA51 PO (16:39)
[2022-12-06 17:13] LABS: Anisocytosis Slight; Macrocytosis Moderate; Platelet Estimate Decreased
[2022-12-06 18:00] VITALS: BP 90/50; PULSE 69; RESP 20; O2SAT 99
== END 2022-12-06 19:53 | disposition home or self-care (01) ==
LOC: ER 11:49
DX: R18.8 Other ascites (principal); E87.6 Hypokalemia; I12.0 Hypertensive chronic kidney disease with stage 5 chronic kidney disease or end stage renal disease; N18.6 End stage renal disease; E78.5 Hyperlipidemia, unspecified; Z88.0 Allergy status to penicillin
CPT/HCPCS: 36415; 76705; 76942; 80053; 82140; 83690; 83735; 85025; 85610; 96365; 99285; C1729; J3480

== ENCOUNTER 2022-12-17 12:06 | Inpatient (IN) | payer OTHER ==
[~2022-12-17] VITALS: Ht 152.4 cm; Wt 61.7 kg
[~2022-12-17 12:06] MED LIST changes: +POTA10TA51 PO
[2022-12-17 13:03] VITALS: PULSE 92; RESP 17; O2SAT 98
[2022-12-17 13:58] LABS: INR 1.64 (0.9-1.15); Partial Thromboplastin Time 34.8 SEC (24.5-34.5); Prothrombin Time 16.7 sec (9.3-11.8)
[2022-12-17] MEDS ORDERED: LACTULOSE 20Gm/30ML SOLN PO ONE (14:30)
[2022-12-17 14:33] LABS: Albumin 3.1 g/dL (3.2-4.8); Alkaline Phosphatase 117 U/L (46-116); Anion Gap 14 (5-15); Aspartate Aminotransferase 53 U/L (13-40); Bilirubin, Total 4.1 mg/dL (0.2-1.0); Calcium 8.4 mg/dL (8.7-10.4); Carbon Dioxide 23 mmol/L (20-30); Chloride 100 mmol/L (98-107); Glucose 120 mg/dL (74-106); Sodium 137 mmol/L (136-145); Total Protein 6.6 g/dL (5.7-8.2)
[2022-12-17 15:04] LABS: Alanine Aminotransferase 25 U/L (7-40); BUN/Creatinine Ratio 19.6 (10.0-20.0); Blood Urea Nitrogen 31 mg/dL (9-23); Potassium 4.3 mmol/L (3.5-5.1)
[2022-12-17 16:03] LABS: Basophils # (auto) 0 10 ^3/uL (0-0.2); Eosinophils # (auto) 0 10 ^3/uL (0-0.8); Eosinophils % (auto) 0.3 % (0.0-7.0); Nucleated Red Blood Cells % 0.3 %; Red Cell Distribution Width 16.2 % (11.8-14.3); White Blood Cell 7.4 10^3/uL (4.4-10.8)
[2022-12-17 16:05] LABS: Basophils % (auto) 0.5 % (0.0-2.0); Hematocrit 34.3 % (36.0-46.0); Hemoglobin 11.3 g/dL (12.2-16.2); Lymphocytes # (auto) 1.4 10 ^3/uL (0.4-5.4); Lymphocytes % (auto) 19.3 % (10.0-50.0); Mean Corpuscular Hemoglobin 36.5 pg (28.0-32.0); Mean Corpuscular Hgb Conc. 32.8 g/dL (32.0-36.0); Mean Corpuscular Volume 111.2 fL (80.0-100.0); Monocytes # (auto) 0.8 10 ^3/uL (0-1.3); Monocytes % (auto) 11.3 % (0.0-12.0); Neutrophils # (auto) 5.1 10 ^3/uL (1.6-8.6); Neutrophils % (auto) 68.6 % (37.0-80.0); Red Blood Cells 3.09 10^6/uL (4.0-5.20)
[2022-12-17] MEDS ORDERED: NITROGLYCERIN 0.4 MG SL TAB SL PRN (16:45)
[2022-12-17] MEDS ORDERED: MORPHINE SULFATE INJ 2 MG/ml SYRG IV PRN (16:45)
[2022-12-17] MEDS ORDERED: ONDANSETRON HCL 4 MG/2 ML VIAL IV PRN (17:45)
[2022-12-17] MEDS ORDERED: HYDROcodone-ACET 5/325MG TAB PO PRN (17:45)
[2022-12-17] MEDS: FUROSEMIDE 20 MG/2 ML VIAL IV SCH (18:42)
[2022-12-17] MEDS: LACTULOSE 20Gm/30ML SOLN PO SCH ×2 (18:43→23:25)
[2022-12-17 19:30] VITALS: PULSE 73; RESP 18; O2SAT 98
[2022-12-17 22:00] VITALS: BP 134/67; PULSE 67; RESP 16; TEMP 97.8; O2SAT 99
[2022-12-17] MEDS ORDERED: FUR20T PO (23:29)
[2022-12-17 23:31] VITALS: BP_SYST 91; BP_SYST 92; BP_DIAS 51; BP_DIAS 52; PULSE 72; PULSE 76; RESP 14; RESP 18; TEMP 98.9; O2SAT 100
[2022-12-18] MEDS ORDERED: IBUPROFEN 600 MG TAB PO PRN (02:30)
[2022-12-18 05:00] VITALS: BP 121/57; PULSE 71; RESP 14; TEMP 98.2; O2SAT 96
[2022-12-18] MEDS: FUROSEMIDE 20 MG/2 ML VIAL IV SCH (06:00)
[2022-12-18] MEDS: LACTULOSE 20Gm/30ML SOLN PO SCH ×2 (07:01→14:33)
[2022-12-18 07:11] LABS: Basophils # (auto) 0 10 ^3/uL (0-0.2); Basophils % (auto) 0.3 % (0.0-2.0); Eosinophils # (auto) 0 10 ^3/uL (0-0.8); Hemoglobin 10.5 g/dL (12.2-16.2); Lymphocytes # (auto) 1.1 10 ^3/uL (0.4-5.4); Mean Corpuscular Hemoglobin 36.8 pg (28.0-32.0); Monocytes # (auto) 0.7 10 ^3/uL (0-1.3); Nucleated Red Blood Cells % 0.3 %
[2022-12-18 07:13] LABS: Eosinophils % (auto) 0.4 % (0.0-7.0); Lymphocytes % (auto) 18.5 % (10.0-50.0); Mean Corpuscular Volume 108.3 fL (80.0-100.0); Monocytes % (auto) 12.2 % (0.0-12.0); Neutrophils # (auto) 4.1 10 ^3/uL (1.6-8.6); Neutrophils % (auto) 68.6 % (37.0-80.0); Red Blood Cells 2.86 10^6/uL (4.0-5.20); Red Cell Distribution Width 15.6 % (11.8-14.3)
[2022-12-18 08:00] VITALS: PULSE 78; RESP 12; O2SAT 100
[2022-12-18 08:30] VITALS: BP 92/56; PULSE 78; RESP 18; TEMP 98; O2SAT 100
[2022-12-18 08:49] LABS: Alanine Aminotransferase 15 U/L (7-40); Albumin 2.4 g/dL (3.2-4.8); Alkaline Phosphatase 85 U/L (46-116); Anion Gap 9 (5-15); Blood Urea Nitrogen 37 mg/dL (9-23); Calcium 7.7 mg/dL (8.5-10.1); Carbon Dioxide 27 mmol/L (20-30); Chloride 105 mmol/L (98-107); Glucose 88 mg/dL (74-106); Potassium 3.1 mmol/L (3.5-5.1); Sodium 141 mmol/L (136-145)
[2022-12-18 08:50] LABS: Aspartate Aminotransferase 26 U/L (13-40); BUN/Creatinine Ratio 28.5 (10.0-20.0); Bilirubin, Total 4.2 mg/dL (0.2-1.0); Total Protein 5.2 g/dL (5.7-8.2)
[2022-12-18 09:04] LABS: Ferritin 310.8 ng/mL (10-291)
[2022-12-18 09:14] LABS: Lactic Acid w/Reflex 2.3 mmol/L (0.4-2.0)
[2022-12-18 09:28] LABS: Magnesium 1.4 mg/dL (1.6-2.6)
[2022-12-18] MEDS ORDERED: LEVOTHYROXINE SODIUM 112 MCG TAB PO SCH (10:00)
[2022-12-18] MEDS ORDERED: PANTOPRAZOLE 40 MG/10 ML VIAL INJ IV SCH (10:00)
[2022-12-18] MEDS ORDERED: SPIR25TA8 PO (11:19)
[2022-12-18] MEDS ORDERED: FURO1TAB33 PO (11:19)
[2022-12-18 12:30] VITALS: BP 116/69; PULSE 81; RESP 19; TEMP 97.7; O2SAT 100
[2022-12-18 14:37] VITALS: BP 116/69; PULSE 81; RESP 19; TEMP 97.7; O2SAT 100
[2022-12-20 10:24] LABS: Folate (Folic Acid) 5.54 ng/mL (>5.38)
== END 2022-12-18 15:38 | disposition home or self-care (01) | DRG 948 ==
LOC: ER 12:06 → OVERFLOW 16:48 → WEST WING 20:58
PROVIDERS: ADMIT Internal Medicine; ATTEND Internal Medicine
PROC: 0W9G3ZZ Drainage of Peritoneal Cavity, Percutaneous Approach (ICD-10-PCS; principal; 2022-12-17)
DX: R18.8 Other ascites (principal); E44.1 Mild protein-calorie malnutrition; K74.60 Unspecified cirrhosis of liver; R74.01 Elevation of levels of liver transaminase levels; D53.9 Nutritional anemia, unspecified; D69.6 Thrombocytopenia, unspecified; N18.32 Chronic kidney disease, stage 3b; I12.9 Hypertensive chronic kidney disease with stage 1 through stage 4 chronic kidney disease, or unspecified chronic kidney disease; E66.3 Overweight; R73.9 Hyperglycemia, unspecified; L30.9 Dermatitis, unspecified; Z88.0 Allergy status to penicillin; Z68.26 Body mass index [BMI] 26.0-26.9, adult
CPT/HCPCS: 36415; 71045; 76705; 76942; 80053; 82140; 82607; 82728; 82746; 83605; 83735; 84443; 84484; 85025; 85610; 85730; 87081; 93005; 93970; C9113; G0378

== ENCOUNTER 2022-12-29 12:09 | Inpatient (IN) | payer OTHER ==
[~2022-12-29] VITALS: Ht 152.4 cm; Wt 59.0 kg
[~2022-12-29 12:09] MED LIST changes: +FUR20T PO; +FURO1TAB33 PO; +SPIR25TA8 PO
[2022-12-29 12:21] VITALS: PULSE 82; RESP 21; O2SAT 98
[2022-12-29 13:13] LABS: Basophils # (auto) 0 10 ^3/uL (0-0.2); Basophils % (auto) 0.5 % (0.0-2.0); Eosinophils # (auto) 0 10 ^3/uL (0-0.8); Eosinophils % (auto) 0.4 % (0.0-7.0); Monocytes # (auto) 0.7 10 ^3/uL (0-1.3); Nucleated Red Blood Cells % 0.1 %
[2022-12-29 13:16] LABS: Hematocrit 40.1 % (36.0-46.0); Hemoglobin 13.1 g/dL (12.2-16.2); Lymphocytes # (auto) 1.4 10 ^3/uL (0.4-5.4); Lymphocytes % (auto) 15.5 % (10.0-50.0); Mean Corpuscular Hemoglobin 36.9 pg (28.0-32.0); Mean Corpuscular Hgb Conc. 32.8 g/dL (32.0-36.0); Mean Corpuscular Volume 112.6 fL (80.0-100.0); Monocytes % (auto) 7.5 % (0.0-12.0); Neutrophils # (auto) 6.7 10 ^3/uL (1.6-8.6); Neutrophils % (auto) 76.1 % (37.0-80.0); Red Blood Cells 3.56 10^6/uL (4.0-5.20); Red Cell Distribution Width 16.7 % (11.8-14.3); White Blood Cell 8.8 10^3/uL (4.4-10.8)
[2022-12-29 13:18] LABS: Alanine Aminotransferase 30 U/L (7-40); Albumin 2.9 g/dL (3.2-4.8); Alkaline Phosphatase 204 U/L (46-116); Anion Gap 10 (5-15); Aspartate Aminotransferase 75 U/L (13-40); BUN/Creatinine Ratio 29.9 (10.0-20.0); Blood Urea Nitrogen 55 mg/dL (9-23); Calcium 8.5 mg/dL (8.7-10.4); Carbon Dioxide 20 mmol/L (20-30); Chloride 102 mmol/L (98-107); Glucose 96 mg/dL (74-106); Lipase 165 U/L (12-53); Magnesium 1.7 mg/dL (1.6-2.6); Sodium 132 mmol/L (136-145)
[2022-12-29 13:19] LABS: Bilirubin, Total 3.2 mg/dL (0.2-1.0); Lactic Acid w/Reflex 3.9 mmol/L (0.4-2.0); Total Protein 6.3 g/dL (5.7-8.2)
[2022-12-29 13:33] LABS: Potassium 5.9 mmol/L (3.5-5.1)
[2022-12-29 13:34] LABS: INR 1.56 (0.9-1.15); Partial Thromboplastin Time 27.3 SEC (24.5-34.5); Prothrombin Time 15.9 sec (9.3-11.8)
[2022-12-29] MEDS ORDERED: ALBUMIN 25% 100 ML IV ONE ×2 (13:45→21:15)
[2022-12-29] MEDS ORDERED: FUROSEMIDE 40 MG/4 ML VIAL IV ONE (13:45)
[2022-12-29] MEDS ORDERED: ALBUTEROL SULF 2.5 MG/0.5ML(0.5%) NEB SOLN NEB ONE (13:45)
[2022-12-29] MEDS ORDERED: SODIUM ZIRCONIUM CYCL 10 GM PAK PO ONE (13:45)
[2022-12-29 16:30] VITALS: TEMP 98.5
[2022-12-29] MEDS ORDERED: LACTULOSE 20Gm/30ML SOLN PO ONE (17:45)
[2022-12-29 19:06] LABS: Alanine Aminotransferase 21 U/L (7-40); Albumin 2.9 g/dL (3.2-4.8); Alkaline Phosphatase 161 U/L (46-116); Anion Gap 10 (5-15); Aspartate Aminotransferase 46 U/L (13-40); BUN/Creatinine Ratio 19.6 (10.0-20.0); Calcium 8.6 mg/dL (8.7-10.4); Carbon Dioxide 21 mmol/L (20-30); Chloride 102 mmol/L (98-107); Glucose 82 mg/dL (74-106); Lactic Acid w/Reflex 3.4 mmol/L (0.4-2.0); Lipase 105 U/L (12-53); Potassium 4.4 mmol/L (3.5-5.1); Sodium 133 mmol/L (136-145)
[2022-12-29 19:07] LABS: Bilirubin, Total 2.9 mg/dL (0.2-1.0); Total Protein 5.9 g/dL (5.7-8.2)
[2022-12-29 19:16] LABS: Blood Urea Nitrogen 32 mg/dL (9-23)
[2022-12-29 20:20] VITALS: PULSE 88; RESP 25; O2SAT 100
[2022-12-29] MEDS ORDERED: ONDANSETRON HCL 4 MG/2 ML VIAL IV PRN (21:15)
[2022-12-29 22:00] VITALS: BP 75/45; PULSE 64; RESP 17; O2SAT 98
[2022-12-29] MEDS ORDERED: LACTULOSE 20Gm/30ML SOLN PO SCH (22:00)
[2022-12-29] MEDS ORDERED: ALBUMIN 5% 250 ML IV ONE (22:00)
[2022-12-30] MEDS ORDERED: MIDODRINE HCL 10 MG TAB PO SCH (06:00)
[2022-12-30] MEDS ORDERED: LEVOTHYROXINE SODIUM 112 MCG TAB PO SCH (07:00)
[2022-12-30] MEDS ORDERED: SPIRONOLACTONE 25 MG TAB PO SCH (10:00)
[2022-12-30] MEDS ORDERED: FUROSEMIDE 40 MG TAB PO SCH (10:00)
[2022-12-30 11:20] LABS: Alanine Aminotransferase 19 U/L (7-40); Albumin 2.8 g/dL (3.2-4.8); Alkaline Phosphatase 119 U/L (46-116); Anion Gap 11 (5-15); Aspartate Aminotransferase 39 U/L (13-40); BUN/Creatinine Ratio 22.7 (10.0-20.0); Bilirubin, Total 3.7 mg/dL (0.2-1.0); Blood Urea Nitrogen 35 mg/dL (9-23); Calcium 8.4 mg/dL (8.5-10.1); Carbon Dioxide 21 mmol/L (20-30); Chloride 106 mmol/L (98-107); Glucose 79 mg/dL (74-106); Potassium 3.9 mmol/L (3.5-5.1); Sodium 138 mmol/L (136-145); Total Protein 5.5 g/dL (5.7-8.2)
[2022-12-30 16:20] LABS: Basophils # (auto) 0 10 ^3/uL (0-0.2); Basophils % (auto) 0.3 % (0.0-2.0); Eosinophils # (auto) 0.1 10 ^3/uL (0-0.8); Eosinophils % (auto) 0.8 % (0.0-7.0); Lymphocytes # (auto) 0.9 10 ^3/uL (0.4-5.4); Lymphocytes % (auto) 13.1 % (10.0-50.0); Monocytes # (auto) 0.4 10 ^3/uL (0-1.3); Monocytes % (auto) 6.4 % (0.0-12.0); Neutrophils # (auto) 5.2 10 ^3/uL (1.6-8.6); Neutrophils % (auto) 79.4 % (37.0-80.0); Red Blood Cells 3.01 10^6/uL (4.0-5.20); White Blood Cell 6.5 10^3/uL (4.4-10.8)
[2022-12-30 16:21] LABS: Hematocrit 33.5 % (36.0-46.0); Hemoglobin 10.9 g/dL (12.2-16.2); Mean Corpuscular Hemoglobin 36.3 pg (28.0-32.0); Mean Corpuscular Hgb Conc. 32.6 g/dL (32.0-36.0); Mean Corpuscular Volume 111.5 fL (80.0-100.0); Red Cell Distribution Width 16.6 % (11.8-14.3)
== END 2022-12-30 10:30 | disposition home or self-care (01) | DRG 432 ==
LOC: ER 12:09 → OVERFLOW 21:25
PROVIDERS: ADMIT Nurse Practitioner; ATTEND Nurse Practitioner
PROC: 0W9G3ZZ Drainage of Peritoneal Cavity, Percutaneous Approach (ICD-10-PCS; principal; 2022-12-29)
DX: K74.60 Unspecified cirrhosis of liver (principal); K76.7 Hepatorenal syndrome; D68.59 Other primary thrombophilia; R18.8 Other ascites; D69.6 Thrombocytopenia, unspecified; E78.5 Hyperlipidemia, unspecified; I10 Essential (primary) hypertension; I95.9 Hypotension, unspecified; R79.89 Other specified abnormal findings of blood chemistry
CPT/HCPCS: 36415; 71045; 76705; 76942; 80053; 82140; 83605; 83690; 83735; 83880; 84484; 85025; 85610; 85730; 93005; 94640; G0378; P9047

== ENCOUNTER → 2023-01-05 | Outpatient (CLI) | payer OTHER | END | disposition home or self-care (01) | LOC: US 08:49 | PROVIDERS: ATTEND Student in an Organized Health Care Education/Training Program | DX: R18.8 Other ascites (principal); K74.60 Unspecified cirrhosis of liver | CPT/HCPCS: 49083; 76705; 76942 ==

== ENCOUNTER 2023-01-07 15:27 | Inpatient (IN) | payer OTHER ==
[~2023-01-07] VITALS: Ht 152.4 cm; Wt 98.6 kg
[2023-01-07 16:21] LABS: Basophils # (auto) 0 10 ^3/uL (0-0.2); Eosinophils # (auto) 0.1 10 ^3/uL (0-0.8); Eosinophils % (auto) 0.6 % (0.0-7.0); Hematocrit 45.2 % (36.0-46.0); Mean Corpuscular Volume 115.3 fL (80.0-100.0); Monocytes # (auto) 0.9 10 ^3/uL (0-1.3); Nucleated Red Blood Cells % 0.1 %; Red Blood Cells 3.92 10^6/uL (4.0-5.20)
[2023-01-07 16:23] LABS: Basophils % (auto) 0.3 % (0.0-2.0); Hemoglobin 14.4 g/dL (12.2-16.2); Lymphocytes # (auto) 1.5 10 ^3/uL (0.4-5.4); Lymphocytes % (auto) 14.4 % (10.0-50.0); Mean Corpuscular Hemoglobin 36.8 pg (28.0-32.0); Mean Corpuscular Hgb Conc. 31.9 g/dL (32.0-36.0); Monocytes % (auto) 7.9 % (0.0-12.0); Neutrophils # (auto) 8.2 10 ^3/uL (1.6-8.6); Neutrophils % (auto) 76.8 % (37.0-80.0); White Blood Cell 10.7 10^3/uL (4.4-10.8)
[2023-01-07 16:42] LABS: Alanine Aminotransferase 46 U/L (7-40); Alkaline Phosphatase 268 U/L (46-116); Anion Gap 8 (5-15); Aspartate Aminotransferase 92 U/L (13-40); BUN/Creatinine Ratio 22.8 (10.0-20.0); Blood Urea Nitrogen 44 mg/dL (9-23); Calcium 8.7 mg/dL (8.7-10.4); Carbon Dioxide 17 mmol/L (20-30); Chloride 102 mmol/L (98-107); Glucose 99 mg/dL (74-106); Sodium 127 mmol/L (136-145); Total Protein 6.7 g/dL (5.7-8.2)
[2023-01-07] MEDS ORDERED: SODIUM ZIRCONIUM CYCL 10 GM PAK PO ONE (17:15)
[2023-01-07] MEDS ORDERED: FUROSEMIDE 40 MG/4 ML VIAL IV ONE (17:15)
[2023-01-07] MEDS ORDERED: InsuLIN REG 1unit/0.01ml Soln (100units/ml) IV ONE (17:15)
[2023-01-07] MEDS ORDERED: CALCIUM GLUC 1,000mg/50ml-NS 50 ML IV ONE (17:15)
[2023-01-07] MEDS ORDERED: DEXTROSE (50%) 50ML SYRG IV ONE (17:15)
[2023-01-07 18:58] VITALS: PULSE 82; RESP 18; O2SAT 100
[2023-01-07 19:02] VITALS: PULSE 77; O2SAT 100
[2023-01-07 20:21] LABS: Urine Bacteria FEW /hpf (None Seen); Urine Blood Negative /uL (Negative); Urine Clarity HAZY (Clear); Urine Color Yellow (Yellow); Urine Hyaline Cast MANY /lpf (0 - 2); Urine Mucus FEW (None Seen); Urine Protein, UAD TRACE (Negative); Urine Urobilinogen Normal (Negative); Urine WBC 3 /hpf (0 - 5)
[2023-01-07] MEDS ORDERED: ONDANSETRON HCL 4 MG/2 ML VIAL IV PRN (20:30)
[2023-01-07] MEDS ORDERED: HYDROcodone-ACET 5/325MG TAB PO PRN (20:30)
[2023-01-07] MEDS ORDERED: ALBUTEROL SULF 2.5 MG/0.5ML(0.5%) NEB SOLN NEB ONE (20:30)
[2023-01-07] MEDS ORDERED: SODIUM CHLORIDE 0.9% 1,000 ML IV ONE (20:30)
[2023-01-07] MEDS ORDERED: ALBUMIN 25% 100 ML IV ONE (20:30)
[2023-01-07] MEDS ORDERED: SODIUM BICARBONATE 8.4 % INJ 50ML VIAL IV ONE (20:30)
[2023-01-07] MEDS ORDERED: D5W/SOD CHLO 0.9% 1,000 ML IV SCH (20:30)
[2023-01-07] MEDS ORDERED: DOCUSATE SOD 100 MG CAP PO PRN (20:30)
[2023-01-07] MEDS ORDERED: IBUPROFEN 600 MG TAB PO PRN (20:30)
[2023-01-07] MEDS ORDERED: LEVALBUTEROL HCL 1.25 MG/3 ML NEB NEB ONE (20:45)
[2023-01-07] MEDS ORDERED: NITROGLYCERIN 0.4 MG SL TAB SL PRN (21:15)
[2023-01-07] MEDS ORDERED: MORPHINE SULFATE INJ 2 MG/ml SYRG IV PRN (21:15)
[2023-01-07] MEDS: FAMOTIDINE (10MG/ML) 2ML VL IV SCH (22:18)
[2023-01-08] MEDS ORDERED: NOREPINEPHRINE 8 MG/250ML KIT 250 ML IV SCH (00:15)
[2023-01-08 03:58] LABS: Basophils # (auto) 0 10 ^3/uL (0-0.2); Eosinophils # (auto) 0.1 10 ^3/uL (0-0.8); Hemoglobin 11.6 g/dL (12.2-16.2); Monocytes # (auto) 0.7 10 ^3/uL (0-1.3); Neutrophils # (auto) 6.8 10 ^3/uL (1.6-8.6)
[2023-01-08 04:01] LABS: Basophils % (auto) 0.4 % (0.0-2.0); Hematocrit 34.5 % (36.0-46.0); Lymphocytes # (auto) 1.4 10 ^3/uL (0.4-5.4); Lymphocytes % (auto) 15.4 % (10.0-50.0); Mean Corpuscular Hemoglobin 37.4 pg (28.0-32.0); Mean Corpuscular Hgb Conc. 33.8 g/dL (32.0-36.0); Mean Corpuscular Volume 110.5 fL (80.0-100.0); Monocytes % (auto) 7.7 % (0.0-12.0); Neutrophils % (auto) 75.5 % (37.0-80.0); Nucleated Red Blood Cells % 0.2 %; Red Blood Cells 3.12 10^6/uL (4.0-5.20)
[2023-01-08 04:30] LABS: Alanine Aminotransferase 32 U/L (7-40); Albumin 2.9 g/dL (3.2-4.8); Alkaline Phosphatase 190 U/L (46-116); Anion Gap 8 (5-15); Aspartate Aminotransferase 54 U/L (13-40); BUN/Creatinine Ratio 26.4 (10.0-20.0); Bilirubin, Total 3.2 mg/dL (0.2-1.0); Blood Urea Nitrogen 48 mg/dL (9-23); Calcium 8.5 mg/dL (8.7-10.4); Carbon Dioxide 20 mmol/L (20-30); Chloride 102 mmol/L (98-107); Glucose 104 mg/dL (74-106); Potassium 5.5 mmol/L (3.5-5.1); Sodium 130 mmol/L (136-145)
[2023-01-08 04:31] LABS: Total Protein 5.6 g/dL (5.7-8.2)
[2023-01-08 07:30] VITALS: PULSE 81; RESP 16; O2SAT 98
[2023-01-08] MEDS: LEVOTHYROXINE SODIUM 112 MCG TAB PO SCH (08:17)
[2023-01-08] MEDS ORDERED: SPIRONOLACTONE 25 MG TAB PO SCH (10:00)
[2023-01-08] MEDS: FAMOTIDINE (10MG/ML) 2ML VL IV SCH ×2 (10:16→23:02)
[2023-01-08] MEDS ORDERED: ALBUMIN 25% 50 ML IV ONE (10:30)
[2023-01-08] MEDS ORDERED: SODIUM ZIRCONIUM CYCL 10 GM PAK PO ONE (11:45)
[2023-01-08 11:50] LABS: Magnesium 1.7 mg/dL (1.6-2.6)
[2023-01-08 11:51] LABS: Phosphorus 3.8 mg/dL (2.4-5.1)
[2023-01-08] MEDS: SODIUM BICARBONATE 50ML VIAL 50 ML in SOD CHL 0.45% 1,000 ML IV SCH ×2 (12:41→21:30)
[2023-01-08 19:25] VITALS: PULSE 75; RESP 17; O2SAT 99
[2023-01-08 20:38] LABS: Sodium Urine < 10 mmol/L (40-220)
[2023-01-08 20:43] LABS: Protein, Urine 13.5 mg/dL (0.0-11.9)
[2023-01-08 20:45] LABS: Creatinine, Urine 98.62 mg/dL (30.0-125.0); Urine Protein/Creatinine Ratio 0.14
[2023-01-08 20:46] LABS: Creatinine, Urine 99.09 mg/dL (30.0-125.0)
[2023-01-08 22:00] VITALS: BP 86/56; PULSE 73; RESP 14; TEMP 98; O2SAT 93
[2023-01-08 23:04] VITALS: BP 93/56; PULSE 75; RESP 14; TEMP 98; O2SAT 95
[2023-01-09] VITALS (7 sets, daily range): BP systolic 93–105; BP diastolic 59–69; PULSE 72–82; RESP 14–20; TEMP 97.8–98.6; O2SAT 97–98
[2023-01-09] MEDS: LEVOTHYROXINE SODIUM 112 MCG TAB PO SCH (06:14)
[2023-01-09] MEDS: SODIUM BICARBONATE 50ML VIAL 50 ML in SOD CHL 0.45% 1,000 ML IV SCH ×3 (08:00→22:19)
[2023-01-09] MEDS: FAMOTIDINE (10MG/ML) 2ML VL IV SCH ×2 (08:31→22:19)
[2023-01-09 09:06] LABS: Basophils # (auto) 0 10 ^3/uL (0-0.2); Eosinophils # (auto) 0.1 10 ^3/uL (0-0.8); Lymphocytes # (auto) 1.3 10 ^3/uL (0.4-5.4); Monocytes # (auto) 0.5 10 ^3/uL (0-1.3); Nucleated Red Blood Cells % 0.1 %; Red Blood Cells 3.33 10^6/uL (4.0-5.20); White Blood Cell 6.7 10^3/uL (4.4-10.8)
[2023-01-09 09:07] LABS: Basophils % (auto) 0.5 % (0.0-2.0); Hematocrit 39.9 % (36.0-46.0); Hemoglobin 12.2 g/dL (12.2-16.2); Lymphocytes % (auto) 19.3 % (10.0-50.0); Mean Corpuscular Hemoglobin 36.7 pg (28.0-32.0); Mean Corpuscular Hgb Conc. 30.7 g/dL (32.0-36.0); Mean Corpuscular Volume 119.8 fL (80.0-100.0); Monocytes % (auto) 6.8 % (0.0-12.0); Neutrophils # (auto) 4.9 10 ^3/uL (1.6-8.6); Neutrophils % (auto) 72.4 % (37.0-80.0); Red Cell Distribution Width 16.9 % (11.8-14.3)
[2023-01-09 09:19] LABS: Alanine Aminotransferase 33 U/L (7-40); Albumin 2.8 g/dL (3.2-4.8); Alkaline Phosphatase 147 U/L (46-116); Anion Gap 9 (5-15); Aspartate Aminotransferase 57 U/L (13-40); Bilirubin, Total 4.3 mg/dL (0.2-1.0); Blood Urea Nitrogen 38 mg/dL (9-23); Calcium 8.5 mg/dL (8.5-10.1); Carbon Dioxide 20 mmol/L (20-30); Chloride 103 mmol/L (98-107); Glucose 85 mg/dL (74-106); Potassium 5.2 mmol/L (3.5-5.1); Sodium 132 mmol/L (136-145); Total Protein 5.5 g/dL (5.7-8.2)
[2023-01-09] MEDS ORDERED: SODIUM ZIRCONIUM CYCL 10 GM PAK PO ONE (10:15)
[2023-01-10] MEDS: SODIUM BICARBONATE 50ML VIAL 50 ML in SOD CHL 0.45% 1,000 ML IV SCH (04:41)
[2023-01-10 05:00] VITALS: BP 102/56; PULSE 78; RESP 16; TEMP 98; O2SAT 98
[2023-01-10] MEDS: LEVOTHYROXINE SODIUM 112 MCG TAB PO SCH (06:58)
[2023-01-10 08:00] VITALS: PULSE 71; PULSE 79; RESP 18; O2SAT 96
[2023-01-10 09:00] VITALS: BP 103/65; PULSE 89; RESP 20; TEMP 97.8; O2SAT 98
[2023-01-10] MEDS: FAMOTIDINE (10MG/ML) 2ML VL IV SCH (09:50)
[2023-01-10] MEDS ORDERED: FUROSEMIDE 40 MG/4 ML VIAL IV SCH (10:00)
[2023-01-10 12:34] VITALS: BP 103/58; PULSE 80; RESP 19; TEMP 97.9; O2SAT 100
[2023-01-10 13:45] LABS: Alanine Aminotransferase 32 U/L (7-40); Albumin 2.6 g/dL (3.2-4.8); Alkaline Phosphatase 169 U/L (46-116); Anion Gap 9 (5-15); Aspartate Aminotransferase 53 U/L (13-40); BUN/Creatinine Ratio 34.7 (10.0-20.0); Bilirubin, Total 2.8 mg/dL (0.2-1.0); Calcium 7.8 mg/dL (8.5-10.1); Carbon Dioxide 22 mmol/L (20-30); Chloride 100 mmol/L (98-107); Glucose 136 mg/dL (74-106); Potassium 3.8 mmol/L (3.5-5.1); Sodium 131 mmol/L (136-145); Total Protein 5.1 g/dL (5.7-8.2)
[2023-01-10 13:48] LABS: Blood Urea Nitrogen 51 mg/dL (9-23)
[2023-01-10 16:29] VITALS: BP 91/58; PULSE 80; RESP 18; TEMP 98.2; O2SAT 100
[2023-01-10] MEDS ORDERED: ALBUMIN 25% 50 ML IV ONE (16:45)
[2023-01-10 16:53] VITALS: BP 91/58; PULSE 80; RESP 18; TEMP 98.2; O2SAT 100
== END 2023-01-10 17:09 | disposition home or self-care (01) | DRG 433 ==
LOC: ER 15:27 → TELE 21:13 → TELE-WESTW 01-08 21:46
PROVIDERS: ADMIT Nurse Practitioner Family; ATTEND Internal Medicine
PROC: 0W9G3ZZ Drainage of Peritoneal Cavity, Percutaneous Approach (ICD-10-PCS; principal; 2023-01-10)
DX: K74.3 Primary biliary cirrhosis (principal); E87.1 Hypo-osmolality and hyponatremia; N17.9 Acute kidney failure, unspecified; R18.8 Other ascites; K57.92 Diverticulitis of intestine, part unspecified, without perforation or abscess without bleeding; E87.5 Hyperkalemia; I95.9 Hypotension, unspecified; R79.89 Other specified abnormal findings of blood chemistry; D63.1 Anemia in chronic kidney disease; D69.59 Other secondary thrombocytopenia; I12.9 Hypertensive chronic kidney disease with stage 1 through stage 4 chronic kidney disease, or unspecified chronic kidney disease; I95.89 Other hypotension; E87.8 Other disorders of electrolyte and fluid balance, not elsewhere classified; N18.31 Chronic kidney disease, stage 3a; E03.9 Hypothyroidism, unspecified; E78.5 Hyperlipidemia, unspecified; Z80.0 Family history of malignant neoplasm of digestive organs
CPT/HCPCS: 36415; 49083; 76700; 76705; 76942; 80053; 81001; 82306; 82570; 82962; 83735; 83970; 84100; 84156; 84300; 84439; 84443; 84484; 85025; 85610; 87081; 93005; 94640; 96365; 96375; G0378; J1815; J3490; P9047

== ENCOUNTER → 2023-01-17 | Outpatient (CLI) | payer OTHER ==
[~2023-01-17] MED LIST changes: -ASPI1TAB20 PO; -POTA10TA51 PO; -SPIR25TA8 PO
[2023-01-17 16:23] LABS: Basophils # (auto) 0.1 10 ^3/uL (0-0.2); Eosinophils # (auto) 0 10 ^3/uL (0-0.8); Eosinophils % (auto) 0.2 % (0.0-7.0); Monocytes # (auto) 0.8 10 ^3/uL (0-1.3); Nucleated Red Blood Cells % 0.1 %; Red Blood Cells 3.89 10^6/uL (4.0-5.20)
[2023-01-17 16:25] LABS: Basophils % (auto) 0.5 % (0.0-2.0); Hematocrit 43.1 % (36.0-46.0); Lymphocytes # (auto) 1.6 10 ^3/uL (0.4-5.4); Lymphocytes % (auto) 13.4 % (10.0-50.0); Mean Corpuscular Hgb Conc. 32.5 g/dL (32.0-36.0); Mean Corpuscular Volume 110.8 fL (80.0-100.0); Monocytes % (auto) 6.6 % (0.0-12.0); Neutrophils # (auto) 9.5 10 ^3/uL (1.6-8.6); Neutrophils % (auto) 79.3 % (37.0-80.0); Red Cell Distribution Width 15.6 % (11.8-14.3)
[2023-01-17 16:38] LABS: INR 1.43 (0.9-1.15); Partial Thromboplastin Time 33.9 SEC (24.5-34.5); Prothrombin Time 14.7 sec (9.3-11.8)
[2023-01-17 16:46] LABS: Alanine Aminotransferase 38 U/L (7-40); Albumin 2.9 g/dL (3.2-4.8); Alkaline Phosphatase 226 U/L (46-116); Anion Gap 10 (5-15); Aspartate Aminotransferase 65 U/L (13-40); BUN/Creatinine Ratio 27.3 (10.0-20.0); Bilirubin, Total 3.2 mg/dL (0.2-1.0); Blood Urea Nitrogen 59 mg/dL (9-23); Calcium 8.9 mg/dL (8.7-10.4); Carbon Dioxide 18 mmol/L (20-30); Chloride 100 mmol/L (98-107); Glucose 115 mg/dL (74-106); Sodium 128 mmol/L (136-145); Total Protein 6.3 g/dL (5.7-8.2)
[2023-01-17 16:54] LABS: Potassium 5.8 mmol/L (3.5-5.1)
== END | disposition home or self-care (01) ==
LOC: LAB 16:01
DX: K72.90 Hepatic failure, unspecified without coma (principal); R18.8 Other ascites
CPT/HCPCS: 36415; 80053; 85025; 85610; 85730

== ENCOUNTER → 2023-01-19 | Outpatient (CLI) | payer OTHER ==
[~2023-01-19] MED LIST changes: +ALBUMIN 25% 100 ML IV SCH; +ALBUMIN 25% 200 ML IV ONE
== END | disposition home or self-care (01) ==
LOC: US 12:23
DX: R18.8 Other ascites (principal); K74.60 Unspecified cirrhosis of liver; I10 Essential (primary) hypertension; E78.5 Hyperlipidemia, unspecified; E07.9 Disorder of thyroid, unspecified; Z88.0 Allergy status to penicillin; Z88.8 Allergy status to other drugs, medicaments and biological substances; Z80.0 Family history of malignant neoplasm of digestive organs; Z83.49 Family history of other endocrine, nutritional and metabolic diseases; Z79.890 Hormone replacement therapy; Z79.899 Other long term (current) drug therapy
CPT/HCPCS: 49083; 76942; C1729; P9047

== ENCOUNTER 2023-01-21 17:44 | Inpatient (IN) | payer OTHER ==
[~2023-01-21] VITALS: Ht 149.9 cm; Wt 70.4 kg
[~2023-01-21 17:44] MED LIST changes: -ALBUMIN 25% 100 ML IV SCH; -ALBUMIN 25% 200 ML IV ONE
[2023-01-21 23:05] LABS: Basophils # (auto) 0 10 ^3/uL (0-0.2); Basophils % (auto) 0.1 % (0.0-2.0); Eosinophils # (auto) 0 10 ^3/uL (0-0.8); Nucleated Red Blood Cells % 0.1 %
[2023-01-21 23:07] LABS: Eosinophils % (auto) 0.1 % (0.0-7.0); Hematocrit 46.3 % (36.0-46.0); Hemoglobin 14.5 g/dL (12.2-16.2); Lymphocytes # (auto) 0.9 10 ^3/uL (0.4-5.4); Lymphocytes % (auto) 5.5 % (10.0-50.0); Mean Corpuscular Hemoglobin 35.5 pg (28.0-32.0); Mean Corpuscular Hgb Conc. 31.3 g/dL (32.0-36.0); Mean Corpuscular Volume 113.1 fL (80.0-100.0); Monocytes # (auto) 0.6 10 ^3/uL (0-1.3); Monocytes % (auto) 3.5 % (0.0-12.0); Neutrophils # (auto) 15.6 10 ^3/uL (1.6-8.6); Neutrophils % (auto) 90.8 % (37.0-80.0); Red Cell Distribution Width 15.9 % (11.8-14.3); White Blood Cell 17.2 10^3/uL (4.4-10.8)
[2023-01-21] MEDS ORDERED: ALBUMIN 25% 100 ML IV ONE (23:45)
[2023-01-21] MEDS ORDERED: fentaNYL CITRATE 100 MCG/2 ML VL IV ONE (23:45)
[2023-01-21] MEDS: NOREPINEPHRINE 8 MG/250ML KIT 250 ML IV SCH (23:45)
[2023-01-21] MEDS ORDERED: ONDANSETRON HCL 4 MG/2 ML VIAL IV ONE (23:45)
[2023-01-22] MEDS ORDERED: METOCLOPRAMIDE HCL 5MG/ml INJ 2ml VIAL IV ONE (00:15)
[2023-01-22] MEDS ORDERED: PANTOPRAZOLE 40 MG/10 ML VIAL INJ IV ONE (00:15)
[2023-01-22] MEDS ORDERED: VANCOMYCIN PER PHARMACY 0 MG IV SCH (00:15)
[2023-01-22] MEDS: PHENYLEPHRINE IV 250 ML IV SCH ×3 (00:15→16:55)
[2023-01-22] MEDS ORDERED: SODIUM CHLORIDE 0.9% 2,100 ML IV ONE (00:15)
[2023-01-22] MEDS ORDERED: ALBUMIN 25% 100 ML IV ONE (00:15)
[2023-01-22] MEDS ORDERED: METOCLOPRAMIDE HCL 5MG/ml INJ 2ml VIAL IM ONE (00:15)
[2023-01-22 00:30] VITALS: PULSE 77; RESP 16; O2SAT 96
[2023-01-22 00:31] LABS: Alanine Aminotransferase 34 U/L (7-40); Albumin 2.6 g/dL (3.2-4.8); Alkaline Phosphatase 163 U/L (46-116); Anion Gap 16 (5-15); Aspartate Aminotransferase 63 U/L (13-40); BUN/Creatinine Ratio 27.7 (10.0-20.0); Blood Urea Nitrogen 76 mg/dL (9-23); Calcium 8.4 mg/dL (8.7-10.4); Carbon Dioxide 10 mmol/L (20-30); Chloride 108 mmol/L (98-107); Glucose 67 mg/dL (74-106)
[2023-01-22 00:32] LABS: Bilirubin, Total 4.1 mg/dL (0.2-1.0); Total Protein 4.9 g/dL (5.7-8.2)
[2023-01-22] MEDS ORDERED: IOHEXOL 300 MG/ML 100ML BOTTLE IJ ONE (00:43)
[2023-01-22 00:45] LABS: Sodium 134 mmol/L (136-145)
[2023-01-22 00:46] LABS: Magnesium 1.8 mg/dL (1.6-2.6)
[2023-01-22 00:47] LABS: Lactic Acid w/Reflex 8.3 mmol/L (0.4-2.0); Potassium 6.1 mmol/L (3.5-5.1)
[2023-01-22 00:52] LABS: INR 1.83 (0.9-1.15); Partial Thromboplastin Time 39.8 SEC (24.5-34.5); Prothrombin Time 18.5 sec (9.3-11.8)
[2023-01-22] MEDS ORDERED: PIPERACILLIN-TAZOB 3.375GM 100 ML IV SCH ×2 (01:15→03:15)
[2023-01-22] MEDS ORDERED: VANCOMYCIN 1GM/250ML 250 ML IV NR (01:30)
[2023-01-22] MEDS: DOPamine 1600MCG/ML D5W 250 ML IV SCH ×2 (01:58→22:46)
[2023-01-22] MEDS ORDERED: InsuLIN REG 1unit/0.01ml Soln (100units/ml) IV ONE (02:00)
[2023-01-22] MEDS ORDERED: SODIUM BICARBONATE 8.4% INJ 50ML SYRINGE IV ONE ×2 (02:00)
[2023-01-22] MEDS ORDERED: DEXTROSE (50%) 50ML SYRG IV ONE (02:00)
[2023-01-22] MEDS ORDERED: ALBUTEROL SULF 2.5 MG/0.5ML(0.5%) NEB SOLN NEB ONE ×2 (02:00→02:45)
[2023-01-22] MEDS ORDERED: CALCIUM CHL 100MG/ML 1,000 MG in D5W 5% 100 ML IV ONE (02:00)
[2023-01-22] MEDS ORDERED: IPRATROPIUM BROM 0.5 MG/2.5ML INH SOL NEB ONE (02:45)
[2023-01-22] MEDS ORDERED: ALBUTEROL MEDNEB 2.5 mg/3ml NEB ONE (02:52)
[2023-01-22] MEDS ORDERED: DOCUSATE SOD 100 MG CAP PO PRN (03:15)
[2023-01-22] MEDS: SODIUM ZIRCONIUM CYCL 10 GM PAK PO ONE ×2 (03:45→20:19)
[2023-01-22] MEDS ORDERED: CALCIUM GLUC 1,000mg/50ml-NS 50 ML IV ONE (04:15)
[2023-01-22] MEDS ORDERED: fentaNYL CITRATE 100 MCG/2 ML VL IV ONE (04:30)
[2023-01-22] MEDS ORDERED: NITROGLYCERIN 0.4 MG SL TAB SL PRN (06:00)
[2023-01-22] MEDS ORDERED: MORPHINE SULFATE INJ 2 MG/ml SYRG IV PRN (06:00)
[2023-01-22] MEDS: SODIUM CHLOR 0.9% PF (SALINE LOCK) 10ML VIAL/SYR IV SCH ×3 (06:28→22:07)
[2023-01-22] MEDS: metroNIDAZOLE 500MG/100ML 100 ML IV SCH ×3 (06:30→22:14)
[2023-01-22 08:29] LABS: Alanine Aminotransferase 34 U/L (7-40); Alkaline Phosphatase 131 U/L (46-116); Anion Gap 20 (5-15); Aspartate Aminotransferase 57 U/L (13-40); BUN/Creatinine Ratio 25.7 (10.0-20.0); Blood Urea Nitrogen 68 mg/dL (9-23); Calcium 9.9 mg/dL (8.5-10.1); Carbon Dioxide 12 mmol/L (20-30); Chloride 107 mmol/L (98-107); Glucose 91 mg/dL (74-106); Sodium 139 mmol/L (136-145)
[2023-01-22 08:30] LABS: Bilirubin, Total 5.9 mg/dL (0.2-1.0); Total Protein 6.3 g/dL (5.7-8.2)
[2023-01-22 08:34] LABS: Potassium 5.6 mmol/L (3.5-5.1)
[2023-01-22] MEDS: ONDANSETRON HCL 4 MG/2 ML VIAL IV PRN (11:11)
[2023-01-22] MEDS: levoFLOXacin 250MG 50 ML IV SCH (11:11)
[2023-01-22] MEDS: FAMOTIDINE (10MG/ML) 2ML VL IV SCH ×2 (11:11→22:14)
[2023-01-22] MEDS: LACTULOSE 20Gm/30ML SOLN PO SCH ×2 (11:12→22:14)
[2023-01-22 12:13] LABS: Urine Bacteria MANY /hpf (None Seen); Urine Blood Negative /uL (Negative); Urine Clarity Clear (Clear); Urine Color Yellow (Yellow); Urine Hyaline Cast FEW /lpf (0 - 2); Urine Protein, UAD TRACE (Negative); Urine Specific Gravity 1.015 (1.001-1.035); Urine Urobilinogen Normal (Negative); Urine WBC 11 /hpf (0 - 5)
[2023-01-22] MEDS ORDERED: SODIUM BICARBONATE 50ML VIAL 150 ML in D5W 5% 1,000 ML IV ONE (13:45)
[2023-01-22 20:20] VITALS: PULSE 104; RESP 18; O2SAT 10
[2023-01-22] MEDS: NOREPINEPHRINE 8 MG/250ML KIT 250 ML IV SCH (23:45)
[2023-01-23] MEDS: PHENYLEPHRINE IV 250 ML IV SCH
[2023-01-23 05:12] LABS: Basophils # (auto) 0 10 ^3/uL (0-0.2); Eosinophils # (auto) 0 10 ^3/uL (0-0.8); Hemoglobin 12.2 g/dL (12.2-16.2); Nucleated Red Blood Cells % 0.1 %
[2023-01-23 05:14] LABS: Alanine Aminotransferase 28 U/L (7-40); Albumin 3.3 g/dL (3.2-4.8); Alkaline Phosphatase 133 U/L (46-116); Anion Gap 16 (5-15); Aspartate Aminotransferase 47 U/L (13-40); BUN/Creatinine Ratio 28.4 (10.0-20.0); Basophils % (auto) 0.2 % (0.0-2.0); Blood Urea Nitrogen 69 mg/dL (9-23); Calcium 9.5 mg/dL (8.7-10.4); Carbon Dioxide 20 mmol/L (20-30); Chloride 103 mmol/L (98-107); Glucose 162 mg/dL (74-106); Lymphocytes # (auto) 1.4 10 ^3/uL (0.4-5.4); Lymphocytes % (auto) 10.2 % (10.0-50.0); Mean Corpuscular Volume 109.2 fL (80.0-100.0); Monocytes % (auto) 7.7 % (0.0-12.0); Neutrophils # (auto) 10.9 10 ^3/uL (1.6-8.6); Neutrophils % (auto) 81.9 % (37.0-80.0); Potassium 4.2 mmol/L (3.5-5.1); Red Blood Cells 3.38 10^6/uL (4.0-5.20); Red Cell Distribution Width 15.6 % (11.8-14.3); Sodium 139 mmol/L (136-145); Total Protein 5.6 g/dL (5.7-8.2); White Blood Cell 13.3 10^3/uL (4.4-10.8)
[2023-01-23] MEDS: SODIUM CHLOR 0.9% PF (SALINE LOCK) 10ML VIAL/SYR IV SCH ×3 (06:03→22:49)
[2023-01-23] MEDS: metroNIDAZOLE 500MG/100ML 100 ML IV SCH ×3 (06:03→22:48)
[2023-01-23 07:57] VITALS: PULSE 111; RESP 20; O2SAT 98
[2023-01-23 08:55] LABS: Anisocytosis Slight; Macrocytosis Slight; Platelet Estimate Markedly Decreased
[2023-01-23] MEDS: HYDROcodone-ACET 5/325MG TAB PO PRN ×2 (09:32→20:21)
[2023-01-23] MEDS: FAMOTIDINE (10MG/ML) 2ML VL IV SCH ×2 (09:50→22:51)
[2023-01-23] MEDS: LACTULOSE 20Gm/30ML SOLN PO SCH (09:50)
[2023-01-23] MEDS: levoFLOXacin 250MG 50 ML IV SCH (09:53)
[2023-01-23] MEDS: DOPamine 1600MCG/ML D5W 250 ML IV SCH (10:25)
[2023-01-23] MEDS ORDERED: VANCOMYCIN 750mg/250ml 250 ML IV ONE (11:00)
[2023-01-23] MEDS: SODIUM CHLORIDE 0.9% 1,000 ML IV SCH (17:45)
[2023-01-23] MEDS: ONDANSETRON HCL 4 MG/2 ML VIAL IV PRN (18:28)
[2023-01-23 19:00] VITALS: BP 99/68; PULSE 117; O2SAT 96
[2023-01-23 20:00] VITALS: BP 102/65; PULSE 116; TEMP 97.8; O2SAT 96; O2SAT 97
[2023-01-23 21:00] VITALS: BP 83/58; PULSE 114; O2SAT 97
[2023-01-23 22:00] VITALS: BP 113/77; PULSE 112; PULSE 114; O2SAT 94; O2SAT 98
[2023-01-23 23:00] VITALS: BP 75/49; PULSE 118; O2SAT 96
[2023-01-24] VITALS (13 sets, daily range): BP systolic 91–108; BP diastolic 52–79; PULSE 93–113; RESP 10–20; TEMP 97.5; O2SAT 93–100
[2023-01-24] MEDS: DOPamine 1600MCG/ML D5W 250 ML IV SCH (05:36)
[2023-01-24] MEDS: metroNIDAZOLE 500MG/100ML 100 ML IV SCH ×2 (05:36→14:07)
[2023-01-24] MEDS: HYDROcodone-ACET 5/325MG TAB PO PRN (05:37)
[2023-01-24] MEDS: SODIUM CHLOR 0.9% PF (SALINE LOCK) 10ML VIAL/SYR IV SCH ×3 (05:37→22:07)
[2023-01-24] MEDS: levoFLOXacin 250MG 50 ML IV SCH (11:52)
[2023-01-24] MEDS: FAMOTIDINE (10MG/ML) 2ML VL IV SCH ×2 (11:52→22:09)
[2023-01-24] MEDS: LACTULOSE 20Gm/30ML SOLN PO SCH (11:52)
[2023-01-24] MEDS ORDERED: VANCOMYCIN 500 MG in D5W 5% 100 ML IV ONE (12:00)
[2023-01-24 12:19] LABS: Basophils # (auto) 0 10 ^3/uL (0-0.2); Eosinophils # (auto) 0 10 ^3/uL (0-0.8); Eosinophils % (auto) 0.1 % (0.0-7.0); Hemoglobin 13.1 g/dL (12.2-16.2); Monocytes # (auto) 0.9 10 ^3/uL (0-1.3); Monocytes % (auto) 6.6 % (0.0-12.0); Neutrophils # (auto) 11.7 10 ^3/uL (1.6-8.6); Nucleated Red Blood Cells % 0.2 %; Red Cell Distribution Width 15.8 % (11.8-14.3)
[2023-01-24 12:21] LABS: Basophils % (auto) 0.2 % (0.0-2.0); Hematocrit 40.3 % (36.0-46.0); Lymphocytes # (auto) 1.6 10 ^3/uL (0.4-5.4); Lymphocytes % (auto) 11.3 % (10.0-50.0); Mean Corpuscular Hemoglobin 35.8 pg (28.0-32.0); Mean Corpuscular Hgb Conc. 32.4 g/dL (32.0-36.0); Mean Corpuscular Volume 110.5 fL (80.0-100.0); Neutrophils % (auto) 81.8 % (37.0-80.0); Red Blood Cells 3.65 10^6/uL (4.0-5.20); White Blood Cell 14.3 10^3/uL (4.4-10.8)
[2023-01-24 12:36] LABS: INR 2.13 (0.9-1.15); Prothrombin Time 21.3 sec (9.3-11.8)
[2023-01-24 12:49] LABS: Alanine Aminotransferase 31 U/L (7-40); Albumin 2.8 g/dL (3.2-4.8); Alkaline Phosphatase 125 U/L (46-116); Anion Gap 16 (5-15); Aspartate Aminotransferase 50 U/L (13-40); BUN/Creatinine Ratio 26.3 (10.0-20.0); Bilirubin, Total 3.6 mg/dL (0.2-1.0); Blood Urea Nitrogen 69 mg/dL (9-23); Calcium 8.8 mg/dL (8.5-10.1); Carbon Dioxide 16 mmol/L (20-30); Chloride 105 mmol/L (98-107); Glucose 118 mg/dL (74-106); Potassium 4.3 mmol/L (3.5-5.1); Sodium 137 mmol/L (136-145)
[2023-01-24] MEDS ORDERED: NOREPINEPHRINE 8 MG/250ML KIT 250 ML IV SCH (13:45)
[2023-01-24] MEDS ORDERED: ALBUMIN 25% 100 ML IV ONE ×3 (13:45→18:15)
[2023-01-24] MEDS ORDERED: NOREPINEPHRINE 8 MG/250ML KIT 250 ML IV ONE (13:49)
[2023-01-24] MEDS: ONDANSETRON HCL 4 MG/2 ML VIAL IV PRN (13:57)
[2023-01-24] MEDS: SODIUM CHLORIDE 0.9% 1,000 ML IV SCH (13:58)
[2023-01-24] MEDS ORDERED: cefTRIAXone 1GM/50ML D5W 50 ML IV ONE (14:30)
[2023-01-24] MEDS ORDERED: SODIUM CHLORIDE 0.9% 500 ML IV ONE (19:00)
[2023-01-24] MEDS: NOREPINEPHRINE BITARTRATE 32 MG in SODIUM CHL 0.9% 218 ML IV SCH (20:17)
[2023-01-25] VITALS (21 sets, daily range): BP systolic 84–127; BP diastolic 52–81; PULSE 101–113; RESP 14–22; TEMP 98.3; O2SAT 99–100
[2023-01-25 06:13] LABS: Basophils # (auto) 0 10 ^3/uL (0-0.2); Eosinophils % (auto) 0.3 % (0.0-7.0); Monocytes # (auto) 1.1 10 ^3/uL (0-1.3); Neutrophils # (auto) 13.6 10 ^3/uL (1.6-8.6); Nucleated Red Blood Cells % 0.2 %; White Blood Cell 16.4 10^3/uL (4.4-10.8)
[2023-01-25] MEDS: SODIUM CHLOR 0.9% PF (SALINE LOCK) 10ML VIAL/SYR IV SCH ×3 (06:25→21:32)
[2023-01-25 06:26] LABS: Alanine Aminotransferase 19 U/L (7-40); Albumin 3.4 g/dL (3.2-4.8); Alkaline Phosphatase 105 U/L (46-116); Anion Gap 17 (5-15); Aspartate Aminotransferase 30 U/L (13-40); BUN/Creatinine Ratio 19.2 (10.0-20.0); Bilirubin, Total 3.9 mg/dL (0.2-1.0); Calcium 8.9 mg/dL (8.7-10.4); Carbon Dioxide 14 mmol/L (20-30); Chloride 104 mmol/L (98-107); Glucose 89 mg/dL (74-106); Magnesium 1.9 mg/dL (1.6-2.6); Potassium 4.1 mmol/L (3.5-5.1); Sodium 135 mmol/L (136-145)
[2023-01-25 06:27] LABS: Total Protein 5.3 g/dL (5.7-8.2)
[2023-01-25 06:29] LABS: Basophils % (auto) 0.2 % (0.0-2.0); Eosinophils # (auto) 0.1 10 ^3/uL (0-0.8); Hematocrit 43.9 % (36.0-46.0); Hemoglobin 13.4 g/dL (12.2-16.2); Lymphocytes # (auto) 1.6 10 ^3/uL (0.4-5.4); Lymphocytes % (auto) 9.9 % (10.0-50.0); Mean Corpuscular Hemoglobin 35.4 pg (28.0-32.0); Mean Corpuscular Hgb Conc. 30.7 g/dL (32.0-36.0); Mean Corpuscular Volume 115.4 fL (80.0-100.0); Monocytes % (auto) 6.6 % (0.0-12.0); Red Cell Distribution Width 16.3 % (11.8-14.3)
[2023-01-25 06:38] LABS: Blood Urea Nitrogen 54 mg/dL (9-23)
[2023-01-25] MEDS: MIDODRINE HCL 10 MG TAB PO SCH ×2 (08:24→11:32)
[2023-01-25] MEDS: SODIUM CHLORIDE 0.9% 1,000 ML IV SCH (09:22)
[2023-01-25] MEDS: cefTRIAXone 1GM/50ML D5W 50 ML IV SCH (09:22)
[2023-01-25] MEDS: LACTULOSE 20Gm/30ML SOLN PO SCH (10:00)
[2023-01-25] MEDS: FAMOTIDINE (10MG/ML) 2ML VL IV SCH ×2 (10:12→21:32)
[2023-01-25] MEDS ORDERED: SODIUM CHLORIDE 0.9% 1,000 ML IV SCH (10:30)
[2023-01-25] MEDS ORDERED: SODIUM CHLORIDE 0.9% 1,000 ML IV ONE (11:30)
[2023-01-25] MEDS: NOREPINEPHRINE BITARTRATE 32 MG in SODIUM CHL 0.9% 218 ML IV SCH (18:02)
[2023-01-26] VITALS (93 sets, daily range): BP systolic 65–136; BP diastolic 34–87; PULSE 93–127; RESP 11–56; TEMP 98.2–98.6; O2SAT 82–100
[2023-01-26] MEDS: SODIUM CHLOR 0.9% PF (SALINE LOCK) 10ML VIAL/SYR IV SCH ×3 (05:38→21:12)
[2023-01-26 07:45] LABS: Alanine Aminotransferase 18 U/L (7-40); Albumin 2.7 g/dL (3.2-4.8); Alkaline Phosphatase 113 U/L (46-116); Anion Gap 12 (5-15); Aspartate Aminotransferase 37 U/L (13-40); BUN/Creatinine Ratio 17.3 (10.0-20.0); Bilirubin, Total 2.2 mg/dL (0.2-1.0); Blood Urea Nitrogen 47 mg/dL (9-23); Calcium 8.2 mg/dL (8.5-10.1); Carbon Dioxide 13 mmol/L (20-30); Chloride 109 mmol/L (98-107); Glucose 104 mg/dL (74-106); Potassium 4.4 mmol/L (3.5-5.1); Sodium 134 mmol/L (136-145); Total Protein 4.7 g/dL (5.7-8.2)
[2023-01-26] MEDS: cefTRIAXone 1GM/50ML D5W 50 ML IV SCH (08:01)
[2023-01-26] MEDS: LACTULOSE 20Gm/30ML SOLN PO SCH (12:08)
[2023-01-26] MEDS: FAMOTIDINE (10MG/ML) 2ML VL IV SCH ×2 (12:08→21:12)
[2023-01-26] MEDS: ALBUMIN 25% 100 ML IV SCH ×2 (12:09→18:07)
[2023-01-26] MEDS ORDERED: SODIUM BICARBONATE 650 MG TAB PO SCH (14:00)
[2023-01-26] MEDS ORDERED: SODIUM CHLORIDE 0.9% 1,000 ML IV ONE (14:30)
[2023-01-26] MEDS ORDERED: SODIUM BICARBONATE 8.4 % INJ 50ML VIAL IV ONE (14:30)
[2023-01-26] MEDS: NOREPINEPHRINE BITARTRATE 32 MG in SODIUM CHL 0.9% 218 ML IV SCH (16:33)
[2023-01-26] MEDS: methylPREDNISolone SOD SUCC 40 MG/ML VL IV SCH (21:12)
[2023-01-27] VITALS (103 sets, daily range): BP systolic 84–148; BP diastolic 60–95; PULSE 87–133; RESP 12–26; TEMP 97–98.4; O2SAT 82–100
[2023-01-27 01:44] LABS: Creatinine, Urine 101.27 mg/dL (30.0-125.0)
[2023-01-27] MEDS: ALBUMIN 25% 100 ML IV SCH ×3 (02:40→22:19)
[2023-01-27 05:28] LABS: Alanine Aminotransferase 15 U/L (7-40); Alkaline Phosphatase 115 U/L (46-116); Anion Gap 16 (5-15); Aspartate Aminotransferase 27 U/L (13-40); BUN/Creatinine Ratio 26.3 (10.0-20.0); Calcium 8.5 mg/dL (8.7-10.4); Carbon Dioxide 14 mmol/L (20-30); Chloride 108 mmol/L (98-107); Glucose 137 mg/dL (74-106); Potassium 3.8 mmol/L (3.5-5.1); Sodium 138 mmol/L (136-145)
[2023-01-27 05:29] LABS: Albumin 3.4 g/dL (3.2-4.8); Bilirubin, Total 2.2 mg/dL (0.2-1.0)
[2023-01-27 05:39] LABS: Blood Urea Nitrogen 64 mg/dL (9-23)
[2023-01-27] MEDS: SODIUM CHLOR 0.9% PF (SALINE LOCK) 10ML VIAL/SYR IV SCH ×3 (05:53→22:03)
[2023-01-27 08:30] LABS: Basophils # (auto) 0 10 ^3/uL (0-0.2); Basophils % (auto) 0.1 % (0.0-2.0); Eosinophils # (auto) 0 10 ^3/uL (0-0.8); Monocytes # (auto) 0.2 10 ^3/uL (0-1.3); Neutrophils # (auto) 8.9 10 ^3/uL (1.6-8.6)
[2023-01-27 08:32] LABS: Hematocrit 35.1 % (36.0-46.0); Hemoglobin 11.6 g/dL (12.2-16.2); Lymphocytes # (auto) 0.6 10 ^3/uL (0.4-5.4); Lymphocytes % (auto) 6.5 % (10.0-50.0); Mean Corpuscular Hemoglobin 36.6 pg (28.0-32.0); Mean Corpuscular Volume 110.7 fL (80.0-100.0); Monocytes % (auto) 2.3 % (0.0-12.0); Neutrophils % (auto) 91.1 % (37.0-80.0); Nucleated Red Blood Cells % 0.2 %; Red Blood Cells 3.17 10^6/uL (4.0-5.20); White Blood Cell 9.7 10^3/uL (4.4-10.8)
[2023-01-27] MEDS: cefTRIAXone 1GM/50ML D5W 50 ML IV SCH (08:34)
[2023-01-27] MEDS: methylPREDNISolone SOD SUCC 40 MG/ML VL IV SCH ×2 (09:42→22:03)
[2023-01-27] MEDS: LACTULOSE 20Gm/30ML SOLN PO SCH (09:42)
[2023-01-27] MEDS: FAMOTIDINE (10MG/ML) 2ML VL IV SCH ×2 (09:42→22:03)
[2023-01-27] MEDS ORDERED: MICAFUNGIN SODIUM 100 MG in SODIUM CHL 0.9% 100 ML IV ONE (13:30)
[2023-01-27] MEDS: NOREPINEPHRINE BITARTRATE 32 MG in SODIUM CHL 0.9% 218 ML IV SCH (20:12)
[2023-01-28] VITALS (88 sets, daily range): BP systolic 80–147; BP diastolic 55–86; PULSE 72–178; RESP 13–27; TEMP 97.5–98.4; O2SAT 77–100
[2023-01-28 05:37] LABS: Basophils # (auto) 0 10 ^3/uL (0-0.2); Basophils % (auto) 0.1 % (0.0-2.0); Eosinophils # (auto) 0 10 ^3/uL (0-0.8); Lymphocytes # (auto) 0.8 10 ^3/uL (0.4-5.4); Monocytes # (auto) 0.5 10 ^3/uL (0-1.3); Red Cell Distribution Width 15.8 % (11.8-14.3)
[2023-01-28 05:41] LABS: Hematocrit 33.1 % (36.0-46.0); Hemoglobin 10.7 g/dL (12.2-16.2); Lymphocytes % (auto) 6.1 % (10.0-50.0); Mean Corpuscular Hemoglobin 35.6 pg (28.0-32.0); Mean Corpuscular Hgb Conc. 32.5 g/dL (32.0-36.0); Mean Corpuscular Volume 109.6 fL (80.0-100.0); Neutrophils # (auto) 11.4 10 ^3/uL (1.6-8.6); Neutrophils % (auto) 89.8 % (37.0-80.0); Nucleated Red Blood Cells % 0.1 %; Red Blood Cells 3.02 10^6/uL (4.0-5.20); White Blood Cell 12.7 10^3/uL (4.4-10.8)
[2023-01-28] MEDS: SODIUM CHLOR 0.9% PF (SALINE LOCK) 10ML VIAL/SYR IV SCH ×3 (05:53→21:54)
[2023-01-28] MEDS: ALBUMIN 25% 100 ML IV SCH (05:53)
[2023-01-28 05:57] LABS: Alanine Aminotransferase 15 U/L (7-40); Albumin 3.4 g/dL (3.2-4.8); Alkaline Phosphatase 124 U/L (46-116); Anion Gap 16 (5-15); Aspartate Aminotransferase 30 U/L (13-40); BUN/Creatinine Ratio 25.7 (10.0-20.0); Bilirubin, Total 1.6 mg/dL (0.2-1.0); Blood Urea Nitrogen 64 mg/dL (9-23); Carbon Dioxide 12 mmol/L (20-30); Chloride 110 mmol/L (98-107); Glucose 132 mg/dL (74-106); Potassium 3.9 mmol/L (3.5-5.1); Sodium 138 mmol/L (136-145); Total Protein 5.1 g/dL (5.7-8.2)
[2023-01-28] MEDS: cefTRIAXone 1GM/50ML D5W 50 ML IV SCH (08:45)
[2023-01-28] MEDS: FAMOTIDINE (10MG/ML) 2ML VL IV SCH ×2 (09:54→21:54)
[2023-01-28] MEDS: LACTULOSE 20Gm/30ML SOLN PO SCH (09:54)
[2023-01-28] MEDS: methylPREDNISolone SOD SUCC 40 MG/ML VL IV SCH (09:54)
[2023-01-28] MEDS: MICAFUNGIN SODIUM 100 MG in SODIUM CHL 0.9% 100 ML IV SCH (09:55)
[2023-01-28] MEDS: NOREPINEPHRINE BITARTRATE 32 MG in SODIUM CHL 0.9% 218 ML IV SCH (10:45)
[2023-01-28 15:47] LABS: INR 2.49 (0.9-1.15); Partial Thromboplastin Time 62.6 SEC (24.5-34.5); Prothrombin Time 24.6 sec (9.3-11.8)
[2023-01-29] VITALS (101 sets, daily range): BP systolic 87–126; BP diastolic 48–79; PULSE 57–152; RESP 12–28; TEMP 97.9–98.4; O2SAT 98–100
[2023-01-29 05:03] LABS: Basophils # (auto) 0 10 ^3/uL (0-0.2); Eosinophils # (auto) 0 10 ^3/uL (0-0.8); Monocytes # (auto) 0.4 10 ^3/uL (0-1.3)
[2023-01-29 05:07] LABS: Hematocrit 34.5 % (36.0-46.0); Lymphocytes # (auto) 0.7 10 ^3/uL (0.4-5.4); Lymphocytes % (auto) 6.1 % (10.0-50.0); Mean Corpuscular Hgb Conc. 31.9 g/dL (32.0-36.0); Mean Corpuscular Volume 113.1 fL (80.0-100.0); Monocytes % (auto) 3.7 % (0.0-12.0); Neutrophils # (auto) 10.6 10 ^3/uL (1.6-8.6); Neutrophils % (auto) 90.2 % (37.0-80.0); Nucleated Red Blood Cells % 0.1 %; Red Blood Cells 3.05 10^6/uL (4.0-5.20); Red Cell Distribution Width 16.1 % (11.8-14.3); White Blood Cell 11.8 10^3/uL (4.4-10.8)
[2023-01-29 05:29] LABS: Anion Gap 13 (5-15); Carbon Dioxide 13 mmol/L (20-30); Chloride 110 mmol/L (98-107); Potassium 4.2 mmol/L (3.5-5.1); Sodium 136 mmol/L (136-145)
[2023-01-29 05:35] LABS: BUN/Creatinine Ratio 20.9 (10.0-20.0); Blood Urea Nitrogen 59 mg/dL (9-23); Glucose 109 mg/dL (74-106)
[2023-01-29] MEDS: cefTRIAXone 1GM/50ML D5W 50 ML IV SCH (09:11)
[2023-01-29] MEDS: methylPREDNISolone SOD SUCC 40 MG/ML VL IV SCH (10:07)
[2023-01-29] MEDS: MICAFUNGIN SODIUM 100 MG in SODIUM CHL 0.9% 100 ML IV SCH (10:08)
[2023-01-29] MEDS: LACTULOSE 20Gm/30ML SOLN PO SCH (10:10)
[2023-01-29] MEDS: FAMOTIDINE (10MG/ML) 2ML VL IV SCH ×2 (10:11→22:24)
[2023-01-29] MEDS: SODIUM CHLOR 0.9% PF (SALINE LOCK) 10ML VIAL/SYR IV SCH ×2 (14:00→22:25)
[2023-01-29] MEDS: NOREPINEPHRINE BITARTRATE 32 MG in SODIUM CHL 0.9% 218 ML IV SCH (17:00)
[2023-01-30] VITALS (103 sets, daily range): BP systolic 79–168; BP diastolic 49–120; PULSE 55–176; RESP 9–30; TEMP 97.7–98.3; O2SAT 84–100
[2023-01-30] MEDS: HYDROcodone-ACET 5/325MG TAB PO PRN (04:14)
[2023-01-30 05:01] LABS: Hemoglobin 12.8 g/dL (12.2-16.2); Mean Corpuscular Hemoglobin 35.4 pg (28.0-32.0)
[2023-01-30 05:02] LABS: Hematocrit 39.9 % (36.0-46.0); Mean Corpuscular Hgb Conc. 32.2 g/dL (32.0-36.0); Mean Corpuscular Volume 110.2 fL (80.0-100.0); Red Blood Cells 3.62 10^6/uL (4.0-5.20); Red Cell Distribution Width 16.4 % (11.8-14.3)
[2023-01-30] MEDS: SODIUM CHLOR 0.9% PF (SALINE LOCK) 10ML VIAL/SYR IV SCH ×3 (05:39→21:36)
[2023-01-30 05:50] LABS: Chloride 110 mmol/L (98-107); Potassium 4.6 mmol/L (3.5-5.1); Sodium 138 mmol/L (136-145)
[2023-01-30 05:51] LABS: Anion Gap 14 (5-15); Carbon Dioxide 14 mmol/L (20-30)
[2023-01-30 05:52] LABS: Calcium 9.3 mg/dL (8.7-10.4)
[2023-01-30 05:56] LABS: Glucose 119 mg/dL (74-106)
[2023-01-30 05:57] LABS: BUN/Creatinine Ratio 21.4 (10.0-20.0)
[2023-01-30 05:58] LABS: Band Neutrophils % (manual) 0; Basophils % (manual) 0 (0.0-2.0); Blast Cells 0; Eosinophils % (manual) 0 (0-7); Metamyelocytes % 0; Monocytes % (manual) 0 (0-12); Myelocytes % 0; Reactive Lymphocytes 0
[2023-01-30 06:15] LABS: Blood Urea Nitrogen 69 mg/dL (9-23)
[2023-01-30] MEDS: cefTRIAXone 1GM/50ML D5W 50 ML IV SCH (09:14)
[2023-01-30] MEDS ORDERED: PHYTONADIONE (VIT K)10 MG/ML 1ML VIAL SUBCUT ONE (10:15)
[2023-01-30] MEDS: MICAFUNGIN SODIUM 100 MG in SODIUM CHL 0.9% 100 ML IV SCH (10:42)
[2023-01-30] MEDS: methylPREDNISolone SOD SUCC 40 MG/ML VL IV SCH (10:43)
[2023-01-30] MEDS: LACTULOSE 20Gm/30ML SOLN PO SCH (10:43)
[2023-01-30] MEDS: FAMOTIDINE (10MG/ML) 2ML VL IV SCH ×2 (10:43→21:36)
[2023-01-30] MEDS: NOREPINEPHRINE BITARTRATE 32 MG in SODIUM CHL 0.9% 218 ML IV SCH (10:45)
[2023-01-30 10:57] LABS: Lymphocytes % (manual) 7 (10.0-50.0); Platelet Estimate Decreased; Promyelocytes % 1; Toxic Granulation Marked
[2023-01-30] MEDS ORDERED: NOREPINEPHRINE 8 MG/250ML KIT 250 ML IV ONE (15:04)
[2023-01-30] MEDS: NOREPINEPHRINE 8 MG/250ML KIT 250 ML IV SCH (16:00)
[2023-01-30] MEDS: ONDANSETRON HCL 4 MG/2 ML VIAL IV PRN (21:15)
[2023-01-31] VITALS (93 sets, daily range): BP systolic 66–140; BP diastolic 43–95; PULSE 54–152; RESP 10–25; TEMP 96.5–97.9; O2SAT 83–100
[2023-01-31] MEDS: SODIUM CHLOR 0.9% PF (SALINE LOCK) 10ML VIAL/SYR IV SCH ×3 (06:00→22:27)
[2023-01-31 06:12] LABS: Anion Gap 14 (5-15); Carbon Dioxide 15 mmol/L (20-30); Chloride 109 mmol/L (98-107); Potassium 4.9 mmol/L (3.5-5.1); Sodium 138 mmol/L (136-145)
[2023-01-31 06:13] LABS: Calcium 8.8 mg/dL (8.7-10.4)
[2023-01-31 06:18] LABS: BUN/Creatinine Ratio 18.8 (10.0-20.0); Basophils # (auto) 0 10 ^3/uL (0-0.2); Basophils % (auto) 0.1 % (0.0-2.0); Blood Urea Nitrogen 68 mg/dL (9-23); Eosinophils # (auto) 0 10 ^3/uL (0-0.8); Glucose 117 mg/dL (74-106); Hematocrit 36.5 % (36.0-46.0); Hemoglobin 11.4 g/dL (12.2-16.2); Lymphocytes # (auto) 0.6 10 ^3/uL (0.4-5.4); Lymphocytes % (auto) 3.4 % (10.0-50.0); Mean Corpuscular Hemoglobin 35.1 pg (28.0-32.0); Mean Corpuscular Hgb Conc. 31.3 g/dL (32.0-36.0); Monocytes # (auto) 0.6 10 ^3/uL (0-1.3); Monocytes % (auto) 3.5 % (0.0-12.0); Neutrophils # (auto) 16.2 10 ^3/uL (1.6-8.6); Nucleated Red Blood Cells % 0.2 %; Red Blood Cells 3.26 10^6/uL (4.0-5.20); Red Cell Distribution Width 17.4 % (11.8-14.3); White Blood Cell 17.4 10^3/uL (4.4-10.8)
[2023-01-31] MEDS: methylPREDNISolone SOD SUCC 40 MG/ML VL IV SCH (09:21)
[2023-01-31] MEDS: cefTRIAXone 1GM/50ML D5W 50 ML IV SCH (09:21)
[2023-01-31] MEDS: LACTULOSE 20Gm/30ML SOLN PO SCH (09:22)
[2023-01-31] MEDS: FAMOTIDINE (10MG/ML) 2ML VL IV SCH ×2 (09:22→22:26)
[2023-01-31] MEDS: MICAFUNGIN SODIUM 100 MG in SODIUM CHL 0.9% 100 ML IV SCH (09:39)
[2023-01-31] MEDS: DOPamine 1600MCG/ML D5W 250 ML IV SCH (11:31)
[2023-01-31] MEDS: ONDANSETRON HCL 4 MG/2 ML VIAL IV PRN (11:59)
[2023-01-31 12:41] LABS: INR 2.29 (0.9-1.15); Prothrombin Time 22.8 sec (9.3-11.8)
[2023-01-31 12:42] LABS: Partial Thromboplastin Time 43.3 SEC (24.5-34.5)
[2023-01-31] MEDS: OCTREOTIDE ACETATE 100 MCG/ML VL SUBCUT SCH ×2 (14:44→22:27)
[2023-01-31] MEDS: NOREPINEPHRINE 8 MG/250ML KIT 250 ML IV SCH (15:00)
[2023-01-31] MEDS ORDERED: FUROSEMIDE 40 MG/4 ML VIAL IV ONE (16:45)
[2023-02-01] VITALS (99 sets, daily range): BP systolic 70–157; BP diastolic 47–86; PULSE 65–127; RESP 12–28; TEMP 96.5–98.2; O2SAT 79–100
[2023-02-01 04:59] LABS: Basophils # (auto) 0 10 ^3/uL (0-0.2); Eosinophils # (auto) 0 10 ^3/uL (0-0.8); Nucleated Red Blood Cells % 0.1 %
[2023-02-01 05:02] LABS: Hemoglobin 12.9 g/dL (12.2-16.2); Lymphocytes % (auto) 4.6 % (10.0-50.0); Mean Corpuscular Hgb Conc. 31.5 g/dL (32.0-36.0); Monocytes # (auto) 0.7 10 ^3/uL (0-1.3); Monocytes % (auto) 3.3 % (0.0-12.0); Neutrophils # (auto) 19.8 10 ^3/uL (1.6-8.6); Neutrophils % (auto) 92.1 % (37.0-80.0); Red Cell Distribution Width 17.2 % (11.8-14.3); White Blood Cell 21.5 10^3/uL (4.4-10.8)
[2023-02-01 05:18] LABS: Alanine Aminotransferase 24 U/L (7-40); Albumin 3.2 g/dL (3.2-4.8); Alkaline Phosphatase 113 U/L (46-116); Anion Gap 15 (5-15); Aspartate Aminotransferase 34 U/L (13-40); Bilirubin, Total 1.6 mg/dL (0.2-1.0); Blood Urea Nitrogen 76 mg/dL (9-23); Calcium 8.8 mg/dL (8.5-10.1); Carbon Dioxide 14 mmol/L (20-30); Chloride 107 mmol/L (98-107); Glucose 141 mg/dL (74-106); Potassium 4.9 mmol/L (3.5-5.1); Sodium 136 mmol/L (136-145); Total Protein 5.4 g/dL (5.7-8.2)
[2023-02-01 06:03] LABS: Macrocytosis Moderate; Platelet Estimate Decreased
[2023-02-01] MEDS: SODIUM CHLOR 0.9% PF (SALINE LOCK) 10ML VIAL/SYR IV SCH ×3 (06:11→21:43)
[2023-02-01] MEDS: OCTREOTIDE ACETATE 100 MCG/ML VL SUBCUT SCH ×3 (06:13→21:42)
[2023-02-01] MEDS: ONDANSETRON HCL 4 MG/2 ML VIAL IV PRN (07:49)
[2023-02-01] MEDS: LACTULOSE 20Gm/30ML SOLN PO SCH (10:00)
[2023-02-01] MEDS: DOPamine 1600MCG/ML D5W 250 ML IV SCH ×2 (10:30→14:35)
[2023-02-01] MEDS: FUROSEMIDE 40 MG/4 ML VIAL IV SCH (10:33)
[2023-02-01] MEDS: FAMOTIDINE (10MG/ML) 2ML VL IV SCH ×2 (10:33→21:45)
[2023-02-01] MEDS: methylPREDNISolone SOD SUCC 40 MG/ML VL IV SCH (10:33)
[2023-02-01] MEDS: cefTRIAXone 1GM/50ML D5W 50 ML IV SCH (10:34)
[2023-02-01] MEDS: MICAFUNGIN SODIUM 100 MG in SODIUM CHL 0.9% 100 ML IV SCH (11:54)
[2023-02-01] MEDS ORDERED: MIDODRINE HCL 10 MG TAB PO SCH (13:30)
[2023-02-01] MEDS: SODIUM BICARBONATE 50ML VIAL 50 ML in SOD CHL 0.45% 1,000 ML IV SCH (14:32)
[2023-02-01] MEDS: NOREPINEPHRINE 8 MG/250ML KIT 250 ML IV SCH (14:32)
[2023-02-01] MEDS ORDERED: PHYTONADIONE(VitK) ORAL Susp 10mg/10ml(1mg/ml) PO ONE (19:30)
[2023-02-01] MEDS ORDERED: HYDROcodone-ACET 7.5/325MG TAB PO PRN (19:45)
[2023-02-01] MEDS: URSODIOL 300 MG CAP PO SCH (21:43)
[2023-02-02] VITALS (88 sets, daily range): BP systolic 74–139; BP diastolic 51–87; PULSE 66–114; RESP 10–22; TEMP 96.7–97.9; O2SAT 66–100
[2023-02-02] MEDS: SODIUM BICARBONATE 50ML VIAL 50 ML in SOD CHL 0.45% 1,000 ML IV SCH (01:33)
[2023-02-02 04:54] LABS: Basophils # (auto) 0 10 ^3/uL (0-0.2); Eosinophils # (auto) 0 10 ^3/uL (0-0.8); Hemoglobin 11.1 g/dL (12.2-16.2); Monocytes % (auto) 2.7 % (0.0-12.0); Nucleated Red Blood Cells % 0.1 %
[2023-02-02 04:56] LABS: Basophils % (auto) 0.1 % (0.0-2.0); Hematocrit 34.4 % (36.0-46.0); Lymphocytes # (auto) 0.6 10 ^3/uL (0.4-5.4); Lymphocytes % (auto) 3.4 % (10.0-50.0); Mean Corpuscular Hemoglobin 36.2 pg (28.0-32.0); Mean Corpuscular Hgb Conc. 32.4 g/dL (32.0-36.0); Monocytes # (auto) 0.5 10 ^3/uL (0-1.3); Neutrophils # (auto) 15.7 10 ^3/uL (1.6-8.6); Neutrophils % (auto) 93.8 % (37.0-80.0); Red Blood Cells 3.07 10^6/uL (4.0-5.20); Red Cell Distribution Width 17.5 % (11.8-14.3); White Blood Cell 16.7 10^3/uL (4.4-10.8)
[2023-02-02 05:05] LABS: INR 1.6 (0.9-1.15); Partial Thromboplastin Time 37.3 SEC (24.5-34.5); Prothrombin Time 16.3 sec (9.3-11.8)
[2023-02-02 05:14] LABS: Alanine Aminotransferase 24 U/L (7-40); Albumin 3.3 g/dL (3.2-4.8); Alkaline Phosphatase 106 U/L (46-116); Anion Gap 17 (5-15); Aspartate Aminotransferase 34 U/L (13-40); BUN/Creatinine Ratio 22.2 (10.0-20.0); Bilirubin, Total 1.9 mg/dL (0.2-1.0); Calcium 8.5 mg/dL (8.7-10.4); Carbon Dioxide 14 mmol/L (20-30); Chloride 105 mmol/L (98-107); Glucose 95 mg/dL (74-106); Potassium 4.9 mmol/L (3.5-5.1); Sodium 136 mmol/L (136-145); Total Protein 5.7 g/dL (5.7-8.2)
[2023-02-02 05:30] LABS: Blood Urea Nitrogen 80 mg/dL (9-23)
[2023-02-02] MEDS: SODIUM CHLOR 0.9% PF (SALINE LOCK) 10ML VIAL/SYR IV SCH ×3 (06:00→21:42)
[2023-02-02] MEDS: OCTREOTIDE ACETATE 100 MCG/ML VL SUBCUT SCH ×3 (06:00→21:44)
[2023-02-02] MEDS: cefTRIAXone 1GM/50ML D5W 50 ML IV SCH (09:12)
[2023-02-02] MEDS: URSODIOL 300 MG CAP PO SCH ×2 (10:00→21:41)
[2023-02-02] MEDS: LACTULOSE 20Gm/30ML SOLN PO SCH (10:00)
[2023-02-02] MEDS: predniSONE 20 MG TAB PO SCH (10:00)
[2023-02-02] MEDS: MICAFUNGIN SODIUM 100 MG in SODIUM CHL 0.9% 100 ML IV SCH (10:15)
[2023-02-02] MEDS: FUROSEMIDE 40 MG/4 ML VIAL IV SCH (10:15)
[2023-02-02] MEDS: FAMOTIDINE (10MG/ML) 2ML VL IV SCH ×2 (10:15→21:42)
[2023-02-02] MEDS: SODIUM BICARBONATE 50ML VIAL 100 ML in SOD CHL 0.45% 1,000 ML IV SCH ×2 (12:33→21:46)
[2023-02-02] MEDS ORDERED: fentaNYL CITRATE 100 MCG/2 ML VL ONE (13:58)
[2023-02-02] MEDS ORDERED: MIDAZOLAM HCL 2MG/2ML 2ml VIAL (1mg/ml) ONE (13:58)
[2023-02-02] MEDS ORDERED: IODIXANOL 320MG/ML 100ML BTL IV ONE (13:59)
[2023-02-02] MEDS ORDERED: LIDOCAINE 2%HCL (LOCAL ANESTH.) INJ 20ML MDV ONE (13:59)
[2023-02-02] MEDS: NOREPINEPHRINE 8 MG/250ML KIT 250 ML IV SCH (15:00)
[2023-02-02] MEDS: DOPamine 1600MCG/ML D5W 250 ML IV SCH (16:31)
[2023-02-03] VITALS (37 sets, daily range): BP systolic 87–122; BP diastolic 52–80; PULSE 77–139; RESP 11–21; TEMP 97.4–97.9; O2SAT 93–98
[2023-02-03] MEDS: SODIUM CHLOR 0.9% PF (SALINE LOCK) 10ML VIAL/SYR IV SCH ×3 (05:29→23:17)
[2023-02-03] MEDS: OCTREOTIDE ACETATE 100 MCG/ML VL SUBCUT SCH ×3 (05:30→23:18)
[2023-02-03] MEDS: SODIUM BICARBONATE 50ML VIAL 100 ML in SOD CHL 0.45% 1,000 ML IV SCH ×2 (07:44→19:19)
[2023-02-03] MEDS: BUMETANIDE INJECTION 12.5 MG in GIVE UN-DILUTED 0 ML IV SCH (09:45)
[2023-02-03] MEDS: cefTRIAXone 1GM/50ML D5W 50 ML IV SCH (09:47)
[2023-02-03] MEDS: FAMOTIDINE (10MG/ML) 2ML VL IV SCH ×2 (09:47→23:17)
[2023-02-03] MEDS: URSODIOL 300 MG CAP PO SCH ×2 (09:48→23:17)
[2023-02-03] MEDS: predniSONE 20 MG TAB PO SCH (09:48)
[2023-02-03] MEDS: LACTULOSE 20Gm/30ML SOLN PO SCH (09:58)
[2023-02-03] MEDS: MICAFUNGIN SODIUM 100 MG in SODIUM CHL 0.9% 100 ML IV SCH (10:48)
[2023-02-03] MEDS: ONDANSETRON HCL 4 MG/2 ML VIAL IV PRN (11:41)
[2023-02-03] MEDS: ALBUMIN 25% 100 ML IV SCH ×2 (13:14→20:33)
[2023-02-03 17:38] LABS: COVID19 ANTIGEN SOFIA FIA POSITIVE (NEGATIVE)
[2023-02-03] MEDS: guaiFENesin 200 MG/10 ML UD PO PRN (18:59)
[2023-02-03 19:09] LABS: Rapid Influenza A Positive (Negative)
[2023-02-03 19:10] LABS: Rapid Influenza B Positive (Negative)
[2023-02-04] VITALS (20 sets, daily range): BP systolic 83–128; BP diastolic 56–79; PULSE 69–100; RESP 13–21; TEMP 96.6–98; O2SAT 89–99
[2023-02-04] MEDS: ALBUMIN 25% 100 ML IV SCH (05:05)
[2023-02-04 05:18] LABS: Basophils # (auto) 0 10 ^3/uL (0-0.2); Basophils % (auto) 0.1 % (0.0-2.0); Eosinophils # (auto) 0 10 ^3/uL (0-0.8); Hemoglobin 9.7 g/dL (12.2-16.2); Lymphocytes # (auto) 0.3 10 ^3/uL (0.4-5.4); Monocytes # (auto) 0.3 10 ^3/uL (0-1.3); Nucleated Red Blood Cells % 0.1 %; White Blood Cell 8.6 10^3/uL (4.4-10.8)
[2023-02-04 05:20] LABS: Hematocrit 29.8 % (36.0-46.0); Mean Corpuscular Hemoglobin 35.6 pg (28.0-32.0); Mean Corpuscular Hgb Conc. 32.5 g/dL (32.0-36.0); Mean Corpuscular Volume 109.5 fL (80.0-100.0); Monocytes % (auto) 3.4 % (0.0-12.0); Neutrophils # (auto) 7.9 10 ^3/uL (1.6-8.6); Neutrophils % (auto) 92.5 % (37.0-80.0); Red Blood Cells 2.72 10^6/uL (4.0-5.20); Red Cell Distribution Width 18.2 % (11.8-14.3)
[2023-02-04 05:45] LABS: Alanine Aminotransferase 14 U/L (7-40); Albumin 3.4 g/dL (3.2-4.8); Alkaline Phosphatase 79 U/L (46-116); Anion Gap 19 (5-15); Aspartate Aminotransferase 27 U/L (13-40); BUN/Creatinine Ratio 26.3 (10.0-20.0); Calcium 8.1 mg/dL (8.7-10.4); Carbon Dioxide 16 mmol/L (20-30); Chloride 102 mmol/L (98-107); Glucose 121 mg/dL (74-106); Potassium 4.2 mmol/L (3.5-5.1); Sodium 137 mmol/L (136-145)
[2023-02-04 05:46] LABS: Total Protein 5.2 g/dL (5.7-8.2)
[2023-02-04 06:04] LABS: Blood Urea Nitrogen 82 mg/dL (9-23)
[2023-02-04] MEDS: SODIUM BICARBONATE 50ML VIAL 100 ML in SOD CHL 0.45% 1,000 ML IV SCH ×2 (06:41→18:01)
[2023-02-04] MEDS: SODIUM CHLOR 0.9% PF (SALINE LOCK) 10ML VIAL/SYR IV SCH ×3 (06:44→21:56)
[2023-02-04] MEDS: OCTREOTIDE ACETATE 100 MCG/ML VL SUBCUT SCH ×3 (06:44→21:57)
[2023-02-04 06:56] LABS: Macrocytosis Moderate; Platelet Estimate Decreased
[2023-02-04 09:11] LABS: INR 2.19 (0.9-1.15); Prothrombin Time 27.2 sec (9.3-11.8)
[2023-02-04] MEDS: cefTRIAXone 1GM/50ML D5W 50 ML IV SCH (09:14)
[2023-02-04] MEDS: guaiFENesin 200 MG/10 ML UD PO PRN (09:28)
[2023-02-04] MEDS: predniSONE 20 MG TAB PO SCH (09:30)
[2023-02-04] MEDS: LACTULOSE 20Gm/30ML SOLN PO SCH (09:30)
[2023-02-04] MEDS: FAMOTIDINE (10MG/ML) 2ML VL IV SCH (09:30)
[2023-02-04] MEDS: BUMETANIDE INJECTION 12.5 MG in GIVE UN-DILUTED 0 ML IV SCH (09:45)
[2023-02-04] MEDS: MICAFUNGIN SODIUM 100 MG in SODIUM CHL 0.9% 100 ML IV SCH (10:01)
[2023-02-04] MEDS: URSODIOL 300 MG CAP PO SCH ×2 (10:02→21:56)
[2023-02-04] MEDS: DOPamine 1600MCG/ML D5W 250 ML IV SCH (11:00)
[2023-02-05] VITALS (22 sets, daily range): BP systolic 85–104; BP diastolic 55–75; PULSE 64–80; RESP 12–24; TEMP 97–97.7; O2SAT 90–99
[2023-02-05] MEDS: SODIUM CHLOR 0.9% PF (SALINE LOCK) 10ML VIAL/SYR IV SCH ×3 (06:09→22:54)
[2023-02-05] MEDS: OCTREOTIDE ACETATE 100 MCG/ML VL SUBCUT SCH ×3 (06:09→22:53)
[2023-02-05] MEDS: SODIUM BICARBONATE 50ML VIAL 100 ML in SOD CHL 0.45% 1,000 ML IV SCH ×2 (06:09→17:00)
[2023-02-05] MEDS: cefTRIAXone 1GM/50ML D5W 50 ML IV SCH (09:17)
[2023-02-05] MEDS: BUMETANIDE INJECTION 12.5 MG in GIVE UN-DILUTED 0 ML IV SCH (09:45)
[2023-02-05] MEDS: predniSONE 20 MG TAB PO SCH ×2 (10:00)
[2023-02-05] MEDS: LACTULOSE 20Gm/30ML SOLN PO SCH (10:00)
[2023-02-05] MEDS: URSODIOL 300 MG CAP PO SCH ×2 (10:00→22:53)
[2023-02-05] MEDS: FAMOTIDINE (10MG/ML) 2ML VL IV SCH (10:00)
[2023-02-05] MEDS: MICAFUNGIN SODIUM 100 MG in SODIUM CHL 0.9% 100 ML IV SCH (10:00)
[2023-02-05] MEDS: DOPamine 1600MCG/ML D5W 250 ML IV SCH (10:30)
[2023-02-05] MEDS ORDERED: PRED20TA2 PO (14:39)
[2023-02-06] VITALS (12 sets, daily range): BP systolic 92–103; BP diastolic 54–67; PULSE 62–94; RESP 15–18; TEMP 97.6–98.7; O2SAT 92–100
[2023-02-06] MEDS: SODIUM CHLOR 0.9% PF (SALINE LOCK) 10ML VIAL/SYR IV SCH ×2 (06:00→08:07)
[2023-02-06] MEDS: OCTREOTIDE ACETATE 100 MCG/ML VL SUBCUT SCH (07:04)
[2023-02-06] MEDS: LACTULOSE 20Gm/30ML SOLN PO SCH (08:07)
[2023-02-06] MEDS: FAMOTIDINE (10MG/ML) 2ML VL IV SCH (08:31)
[2023-02-06] MEDS: predniSONE 20 MG TAB PO SCH (08:31)
[2023-02-06] MEDS: MICAFUNGIN SODIUM 100 MG in SODIUM CHL 0.9% 100 ML IV SCH (08:31)
[2023-02-06] MEDS: DOPamine 1600MCG/ML D5W 250 ML IV SCH (08:32)
[2023-02-06] MEDS: URSODIOL 300 MG CAP PO SCH (08:32)
== END 2023-02-06 15:08 | disposition hospice, home (50) | DRG 871 ==
LOC: ER 17:44 → OVERFLOW 01-22 05:59 → ICU CENTRL 01-26 10:30 → DOU IN ICU 02-04 01:54 → TELE-WESTW 02-06 09:43
PROVIDERS: ADMIT Nurse Practitioner Family; ATTEND Internal Medicine
PROC: 05H533Z Insertion of Infusion Device into Right Subclavian Vein, Percutaneous Approach (ICD-10-PCS; 2023-01-22)
PROC: 0W9930Z Drainage of Right Pleural Cavity with Drainage Device, Percutaneous Approach (ICD-10-PCS; principal; 2023-02-02)
PROC: BW111ZZ Fluoroscopy of Abdomen and Pelvis using Low Osmolar Contrast (ICD-10-PCS; 2023-02-02)
PROC: 30233K1 Transfusion of Nonautologous Frozen Plasma into Peripheral Vein, Percutaneous Approach (ICD-10-PCS; 2023-02-02)
PROC: BW40ZZZ Ultrasonography of Abdomen (ICD-10-PCS; 2023-02-02)
PROC: 30233R1 Transfusion of Nonautologous Platelets into Peripheral Vein, Percutaneous Approach (ICD-10-PCS; 2023-02-02)
PROC: 0W9G3ZZ Drainage of Peritoneal Cavity, Percutaneous Approach (ICD-10-PCS; 2023-02-03)
DX: A41.9 Sepsis, unspecified organism (principal); J96.00 Acute respiratory failure, unspecified whether with hypoxia or hypercapnia; K76.7 Hepatorenal syndrome; R65.21 Severe sepsis with septic shock; N17.0 Acute kidney failure with tubular necrosis; U07.1 COVID-19; D68.9 Coagulation defect, unspecified; E87.20 Acidosis, unspecified; R18.8 Other ascites; B49 Unspecified mycosis; Z66 Do not resuscitate; K76.82 Hepatic encephalopathy; E87.5 Hyperkalemia; D69.6 Thrombocytopenia, unspecified; K74.3 Primary biliary cirrhosis; R13.10 Dysphagia, unspecified; E78.5 Hyperlipidemia, unspecified; J10.1 Influenza due to other identified influenza virus with other respiratory manifestations; E88.09 Other disorders of plasma-protein metabolism, not elsewhere classified; R55 Syncope and collapse; B96.1 Klebsiella pneumoniae [K. pneumoniae] as the cause of diseases classified elsewhere; E03.9 Hypothyroidism, unspecified; I12.9 Hypertensive chronic kidney disease with stage 1 through stage 4 chronic kidney disease, or unspecified chronic kidney disease; N18.9 Chronic kidney disease, unspecified; Z78.9 Other specified health status; Z80.0 Family history of malignant neoplasm of digestive organs; Z51.5 Encounter for palliative care; K57.30 Diverticulosis of large intestine without perforation or abscess without bleeding
CPT/HCPCS: 36415; 36556; 49083; 71045; 74176; 76705; 76942; 77002; 80048; 80053; 80202; 81001; 82140; 82565; 82570; 82962; 83036; 83605; 83690; 83735; 83880; 84300; 84443; 85007; 85025; 85027; 85610; 85730; 86850; 86900; 86901; 87040; 87077; 87081; 87086; 87088; 87186; 87426; 87804; 93005; 94640; 99152; A4300; C9113; G0378; J0696; J1815; J2248; J2250; J2405; J3430; J3490; J7060; P9047; Q9967